=== PATIENT | female | born 1960 | race Caucasian/White ===

== ENCOUNTER 2018-06-10 16:41 | Inpatient (IN) | payer MEDICARE, MEDICAID ==
[~2018-06-10] VITALS: Ht 160 cm; Wt 94.0 kg
[2018-06-10] MEDS ORDERED: diphenhydrAMINE 50 mg/ml inj IV ONE (17:10)
[2018-06-10] MEDS ORDERED: morphine 4 MG/ML inj SYRINge IV ONE (17:10)
[2018-06-10] MEDS ORDERED: normal saline 1000ML IV soln IVB ONE (17:10)
[2018-06-10] MEDS ORDERED: ondansetron/PF 4mg/2ml inj IV ONE ×3 (17:10→20:30)
[2018-06-10 17:16] LABS: BASOPHILS # (AUTO) 0.1 X10'3 (0-0.2); BASOPHILS % (AUTO) 0.9 % (0-1); EOSINOPHILS # (AUTO) 0.2 X10'3 (0-0.9); EOSINOPHILS % (AUTO) 1.6 % (0-6); HEMATOCRIT 39.9 % (35.0-45.0); HEMOGLOBIN 13.4 g/dl (12.0-16.0); LYMPHOCYTES # (AUTO) 3.9 X10'3 (1.1-4.8); LYMPHOCYTES % (AUTO) 28.2 % (21-51); MEAN CORPUSCULAR HEMOGLOBIN 28.8 PG (27.0-31.0); MEAN CORPUSCULAR HGB CONC 33.6 % (33.0-36.5); MEAN CORPUSCULAR VOLUME 85.6 FL (78-98); MEAN PLATELET VOLUME 8.9 FL (7.4-10.4); MONOCYTES # (AUTO) 0.8 X10'3 (0-0.9); MONOCYTES % (AUTO) 6.2 % (2-12); NEUTROPHILS # (AUTO) 8.7 X10'3 (1.8-7.7); NEUTROPHILS % (AUTO) 63.1 % (42-75); PLATELET COUNT 391 X10'3 (140-440); RED BLOOD COUNT 4.66 X10'6 (4.20-5.60); RED CELL DISTRIBUTION WIDTH 15.1 % (11.5-14.5); WHITE BLOOD COUNT 13.7 X10'3 (4.5-11.0)
[2018-06-10 17:21] LABS: CLARITY,URINE SLIGHTLY CLOUDY (Clear); COLOR,URINE YELLOW (Yellow); GLUCOSE, URINE NEGATIVE (Neg); KETONES,URINE NEGATIVE (Neg); LEUKOCYTE ESTERASE ,URINE NEGATIVE (Neg); NITRITES, URINE NEGATIVE (Neg); OCCULT BLOOD,URINE SMALL (Neg); PROTEIN,URINE TRACE mg/dl (Neg); URINE HCG NEGATIVE (NEG); UROBILINOGEN,URINE 0.2 E.U/dL (0.2-1.0)
[2018-06-10 17:25] LABS: UA COLLECTION TYPE CLN CATCH MIDSTREAM
[2018-06-10 17:27] LABS: BACTERIA,URINE 4+ /HPF (Neg); MUCUS STRANDS MODERATE /LPF (Neg); SQUAMOUS EPITHELIAL CELL,UR MANY /LPF (FEW); WBC,URINE 0-4 /HPF (0-4)
[2018-06-10 17:30] LABS: ALANINE AMINOTRANSFERASE 19 U/L (12-78); ALBUMIN 3.8 G/DL (3.4-5.0); ALKALINE PHOSPHATASE 99 IU/L (46-116); ANION GAP 14 (8-16); ASPARTATE AMINO TRANSFERASE 13 U/L (10-37); BILIRUBIN,TOTAL 0.5 MG/DL (0.1-1.0); BLOOD UREA NITROGEN 13 MG/DL (7-18); BUN/CREATININE RATIO 12.9 (6.6-38.0); CALCIUM 9.4 MG/DL (8.5-10.1); CHLORIDE 107 MMOL/L (99-107); CREATININE 1.01 MG/DL (0.40-0.90); GLUCOSE 101 MG/DL (70-104); LIPASE 120 U/L (73-393); POTASSIUM 3.4 MMOL/L (3.5-5.1); SODIUM 143 MMOL/L (135-145); TOTAL CARBON DIOXIDE 21.7 MMOL/L (24-32); TOTAL PROTEIN 7.7 G/DL (6.4-8.2); eGFR 57 ML/MIN
[2018-06-10] MEDS ORDERED: proCHLORperazine 10 MG/2 ml inj IM ONE (18:55)
[2018-06-10] MEDS ORDERED: HYDROmorphone 2mg tablet PO PRN (18:55)
[2018-06-10] MEDS ORDERED: LORazepam 2 mg/ml vial IV ONE (20:30)
[2018-06-10] MEDS ORDERED: [UNRECOGNIZED DRUG - CODE] PO (21:10)
[2018-06-10] MEDS ORDERED: ONDA8TAB13 PO (21:10)
[2018-06-10] MEDS ORDERED: AMLO5TAB16 PO (21:10)
[2018-06-10] MEDS ORDERED: METO5TAB98 PO (21:10)
[2018-06-10] MEDS ORDERED: LORA1TAB PO (21:10)
[2018-06-10] MEDS ORDERED: OMEP-50 PO (21:10)
[2018-06-10] MEDS ORDERED: pantoprazole 40 MG vial IV ONE (22:15)
[2018-06-10] MEDS ORDERED: ringers solution, lactated 1000ml IV soln IV ONE (22:20)
[2018-06-10] MEDS ORDERED: ciprofloxacin lact 400MG/200ML 200 ML IV ONE (22:50)
[2018-06-10] MEDS ORDERED: potassium Cl 10 mEq/100mL bag IV ONE (22:50)
[2018-06-10] MEDS ORDERED: metroNIDAZOLE-Flagyl 500mg/NS 100 ML IV ONE (22:50)
[2018-06-10] MEDS ORDERED: potassium 10mEq/100ml NS w/LIDOcaine (10mg/bag) IV ONE (23:05)
[2018-06-10] MEDS ORDERED: HYDROmorphone 1 mg/ml syringe IV ONE (23:45)
[2018-06-10] MEDS ORDERED: proMETHazine 25mg rectal suppository RC ONE (23:45)
[2018-06-10] MEDS ORDERED: magnesium hydroxide 30ml (MOM) UD suspension PO PRN (23:50)
[2018-06-10] MEDS ORDERED: mag hydrox/Alum hydrox/simeth 30ml oral suspension PO PRN (23:50)
[2018-06-10] MEDS ORDERED: acetaminophen 325mg tablet PO PRN ×2 (23:50)
[2018-06-10] MEDS ORDERED: hydrALAZINE 20mg/ml inj. IV PRN (23:50)
[2018-06-10] MEDS ORDERED: acetaminophen 650mg rectal suppository RC PRN (23:50)
[2018-06-10] MEDS: normal saline 1000ml 1,000 ML IV SCH (23:56)
[2018-06-11] MEDS ORDERED: piperacillin/tazo 3.375gm/50ml 50 ML IV ONE
[2018-06-11] MEDS: metroNIDAZOLE-Flagyl 500mg/NS 100 ML IV SCH ×4 (00:30→23:31)
[2018-06-11] MEDS: normal saline 1000ml 1,000 ML IV SCH ×2 (01:38→15:54)
[2018-06-11] MEDS: metoclopramide 5 mg/ml inj IV PRN ×2 (01:39→15:58)
[2018-06-11 01:45] VITALS: BP 163/86
[2018-06-11] MEDS: HYDROmorphone 1 mg/ml syringe IV PRN ×5 (02:45→21:50)
[2018-06-11 05:00] VITALS: BP 162/86
[2018-06-11 05:45] LABS: BASOPHILS % (AUTO) 0.2 % (0-1); EOSINOPHILS # (AUTO) 0.1 X10'3 (0-0.9); EOSINOPHILS % (AUTO) 0.6 % (0-6); HEMATOCRIT 39.3 % (35.0-45.0); HEMOGLOBIN 13.3 g/dl (12.0-16.0); LYMPHOCYTES # (AUTO) 1.3 X10'3 (1.1-4.8); LYMPHOCYTES % (AUTO) 7.5 % (21-51); MEAN CORPUSCULAR HEMOGLOBIN 28.9 PG (27.0-31.0); MEAN CORPUSCULAR HGB CONC 33.8 % (33.0-36.5); MEAN CORPUSCULAR VOLUME 85.4 FL (78-98); MEAN PLATELET VOLUME 9.1 FL (7.4-10.4); MONOCYTES # (AUTO) 0.4 X10'3 (0-0.9); MONOCYTES % (AUTO) 2.3 % (2-12); NEUTROPHILS # (AUTO) 15.5 X10'3 (1.8-7.7); NEUTROPHILS % (AUTO) 89.4 % (42-75); PLATELET COUNT 367 X10'3 (140-440); RED CELL DISTRIBUTION WIDTH 15.6 % (11.5-14.5); WHITE BLOOD COUNT 17.4 X10'3 (4.5-11.0)
[2018-06-11 06:09] LABS: ALBUMIN 3.8 G/DL (3.4-5.0); ANION GAP 16 (8-16); BLOOD UREA NITROGEN 10 MG/DL (7-18); BUN/CREATININE RATIO 10.9 (6.6-38.0); CALCIUM 8.6 MG/DL (8.5-10.1); CHLORIDE 101 MMOL/L (99-107); CREATININE 0.92 MG/DL (0.40-0.90); GLUCOSE 152 MG/DL (70-104); POTASSIUM 3.2 MMOL/L (3.5-5.1); SODIUM 140 MMOL/L (135-145); TOTAL CARBON DIOXIDE 23.2 MMOL/L (24-32); eGFR 63 ML/MIN
[2018-06-11] MEDS: ondansetron/PF 4mg/2ml inj IV PRN ×3 (07:40→19:02)
[2018-06-11] MEDS ORDERED: potassium Cl 20 mEq SR tablet PO PRN (09:40)
[2018-06-11] MEDS ORDERED: potassium Cl 40MEQ/NS 500ml 500 ML IV PRN ×2 (09:40)
[2018-06-11] MEDS: amLODIPine 5mg tablet PO SCH (09:44)
[2018-06-11] MEDS: pantoprazole 40mg Tablet.DR PO SCH ×2 (09:44→20:41)
[2018-06-11] MEDS: LORazepam 1 MG tablet PO SCH (09:44)
[2018-06-11] MEDS: ciprofloxacin lact 400MG/200ML 200 ML IV SCH ×2 (09:48→20:46)
[2018-06-11 10:00] VITALS: BP 121/96
[2018-06-11] MEDS: potassium Cl 20 mEq SR tablet PO PRN ×2 (15:56→20:41)
[2018-06-11 18:00] VITALS: BP 138/78
[2018-06-11 22:00] VITALS: BP 124/78
[2018-06-12] MEDS: ondansetron/PF 4mg/2ml inj IV PRN ×3 (01:54→19:30)
[2018-06-12] MEDS: potassium Cl 20 mEq SR tablet PO PRN (01:55)
[2018-06-12] MEDS: HYDROmorphone 1 mg/ml syringe IV PRN ×6 (02:00→23:56)
[2018-06-12 05:00] VITALS: BP 121/70
[2018-06-12] MEDS: normal saline 1000ml 1,000 ML IV SCH ×2 (05:51→19:53)
[2018-06-12 06:39] LABS: BASOPHILS # (AUTO) 0.1 X10'3 (0-0.2); BASOPHILS % (AUTO) 0.4 % (0-1); EOSINOPHILS # (AUTO) 0.1 X10'3 (0-0.9); EOSINOPHILS % (AUTO) 0.8 % (0-6); HEMATOCRIT 34.6 % (35.0-45.0); HEMOGLOBIN 11.6 g/dl (12.0-16.0); LYMPHOCYTES # (AUTO) 4.4 X10'3 (1.1-4.8); LYMPHOCYTES % (AUTO) 27.5 % (21-51); MEAN CORPUSCULAR HGB CONC 33.6 % (33.0-36.5); MEAN CORPUSCULAR VOLUME 86.3 FL (78-98); MONOCYTES # (AUTO) 1.6 X10'3 (0-0.9); MONOCYTES % (AUTO) 10.3 % (2-12); NEUTROPHILS # (AUTO) 9.7 X10'3 (1.8-7.7); PLATELET COUNT 313 X10'3 (140-440); RED BLOOD COUNT 4.01 X10'6 (4.20-5.60); RED CELL DISTRIBUTION WIDTH 14.9 % (11.5-14.5); WHITE BLOOD COUNT 15.9 X10'3 (4.5-11.0)
[2018-06-12 06:49] LABS: ALBUMIN 3.2 G/DL (3.4-5.0); ANION GAP 12 (8-16); BLOOD UREA NITROGEN 20 MG/DL (7-18); BUN/CREATININE RATIO 19.2 (6.6-38.0); CALCIUM 8.6 MG/DL (8.5-10.1); CHLORIDE 107 MMOL/L (99-107); CREATININE 1.04 MG/DL (0.40-0.90); GLUCOSE 95 MG/DL (70-104); POTASSIUM 3.5 MMOL/L (3.5-5.1); SODIUM 142 MMOL/L (135-145); TOTAL CARBON DIOXIDE 23.3 MMOL/L (24-32); eGFR 55 ML/MIN
[2018-06-12] MEDS: K and/or MAG REPLACEMENT MC SCH (08:32)
[2018-06-12] MEDS: pantoprazole 40mg Tablet.DR PO SCH ×2 (08:41→19:30)
[2018-06-12] MEDS: ciprofloxacin lact 400MG/200ML 200 ML IV SCH ×2 (08:41→19:31)
[2018-06-12] MEDS: amLODIPine 5mg tablet PO SCH (08:41)
[2018-06-12] MEDS: LORazepam 1 MG tablet PO SCH (08:41)
[2018-06-12] MEDS: metroNIDAZOLE-Flagyl 500mg/NS 100 ML IV SCH ×3 (09:59→23:58)
[2018-06-12 10:00] VITALS: BP 115/58
[2018-06-12] MEDS: metoclopramide 5 mg/ml inj IV PRN ×2 (15:16→23:56)
[2018-06-12 18:00] VITALS: BP 133/81
[2018-06-12 22:00] VITALS: BP 123/76
[2018-06-13] MEDS: normal saline 1000ml 1,000 ML IV SCH ×3 (01:48→20:33)
[2018-06-13] MEDS: ondansetron/PF 4mg/2ml inj IV PRN ×2 (04:18→17:52)
[2018-06-13] MEDS: HYDROmorphone 1 mg/ml syringe IV PRN ×5 (04:19→22:01)
[2018-06-13 05:51] LABS: ANION GAP 9 (8-16); BLOOD UREA NITROGEN 12 MG/DL (7-18); BUN/CREATININE RATIO 12.2 (6.6-38.0); CALCIUM 8.1 MG/DL (8.5-10.1); CHLORIDE 106 MMOL/L (99-107); CREATININE 0.98 MG/DL (0.40-0.90); GLUCOSE 93 MG/DL (70-104); POTASSIUM 3.1 MMOL/L (3.5-5.1); SODIUM 141 MMOL/L (135-145); TOTAL CARBON DIOXIDE 25.9 MMOL/L (24-32); eGFR 59 ML/MIN
[2018-06-13 05:55] LABS: BASOPHILS # (AUTO) 0.1 X10'3 (0-0.2); BASOPHILS % (AUTO) 0.9 % (0-1); EOSINOPHILS # (AUTO) 0.2 X10'3 (0-0.9); HEMATOCRIT 33.4 % (35.0-45.0); HEMOGLOBIN 11.2 g/dl (12.0-16.0); LYMPHOCYTES # (AUTO) 4.6 X10'3 (1.1-4.8); LYMPHOCYTES % (AUTO) 37.2 % (21-51); MEAN CORPUSCULAR HEMOGLOBIN 29.1 PG (27.0-31.0); MEAN CORPUSCULAR HGB CONC 33.5 % (33.0-36.5); MEAN CORPUSCULAR VOLUME 86.7 FL (78-98); MEAN PLATELET VOLUME 9.3 FL (7.4-10.4); MONOCYTES # (AUTO) 1.2 X10'3 (0-0.9); MONOCYTES % (AUTO) 9.3 % (2-12); NEUTROPHILS # (AUTO) 6.3 X10'3 (1.8-7.7); NEUTROPHILS % (AUTO) 50.6 % (42-75); PLATELET COUNT 282 X10'3 (140-440); RED BLOOD COUNT 3.85 X10'6 (4.20-5.60); RED CELL DISTRIBUTION WIDTH 15.1 % (11.5-14.5); WHITE BLOOD COUNT 12.4 X10'3 (4.5-11.0)
[2018-06-13 06:00] VITALS: BP 133/75
[2018-06-13] MEDS: LORazepam 1 MG tablet PO SCH (07:42)
[2018-06-13] MEDS: potassium Cl 20 mEq SR tablet PO PRN ×3 (07:42→17:57)
[2018-06-13] MEDS: pantoprazole 40mg Tablet.DR PO SCH ×2 (07:42→20:26)
[2018-06-13] MEDS: amLODIPine 5mg tablet PO SCH (07:42)
[2018-06-13] MEDS: ciprofloxacin lact 400MG/200ML 200 ML IV SCH ×2 (07:47→20:26)
[2018-06-13] MEDS: K and/or MAG REPLACEMENT MC SCH (08:00)
[2018-06-13 08:05] VITALS: BP 130/76
[2018-06-13 10:00] VITALS: BP 127/88
[2018-06-13] MEDS: metroNIDAZOLE-Flagyl 500mg/NS 100 ML IV SCH ×2 (10:50→16:35)
[2018-06-13 11:40] VITALS: BP 110/67
[2018-06-13] MEDS: metoclopramide 5 mg/ml inj IV PRN ×2 (13:33→22:08)
[2018-06-13] MEDS ORDERED: CIPR-230 PO (15:57)
[2018-06-13] MEDS ORDERED: METR500T PO (15:57)
[2018-06-13 18:00] VITALS: BP 126/73
[2018-06-13 22:00] VITALS: BP 148/88
[2018-06-14] MEDS: metroNIDAZOLE-Flagyl 500mg/NS 100 ML IV SCH ×2 (00:04→08:34)
[2018-06-14] MEDS: HYDROmorphone 1 mg/ml syringe IV PRN ×3 (02:06→10:22)
[2018-06-14] MEDS: ondansetron/PF 4mg/2ml inj IV PRN ×2 (02:06→10:27)
[2018-06-14 05:00] VITALS: BP 141/86
[2018-06-14 05:49] LABS: BASOPHILS # (AUTO) 0.1 X10'3 (0-0.2); BASOPHILS % (AUTO) 0.7 % (0-1); EOSINOPHILS # (AUTO) 0.5 X10'3 (0-0.9); HEMATOCRIT 34.5 % (35.0-45.0); HEMOGLOBIN 11.4 g/dl (12.0-16.0); LYMPHOCYTES % (AUTO) 31.7 % (21-51); MEAN CORPUSCULAR HEMOGLOBIN 28.6 PG (27.0-31.0); MEAN CORPUSCULAR HGB CONC 33.2 % (33.0-36.5); MEAN CORPUSCULAR VOLUME 86.3 FL (78-98); MEAN PLATELET VOLUME 8.9 FL (7.4-10.4); MONOCYTES # (AUTO) 1.3 X10'3 (0-0.9); MONOCYTES % (AUTO) 10.6 % (2-12); NEUTROPHILS # (AUTO) 6.7 X10'3 (1.8-7.7); PLATELET COUNT 291 X10'3 (140-440); RED BLOOD COUNT 3.99 X10'6 (4.20-5.60); RED CELL DISTRIBUTION WIDTH 15.2 % (11.5-14.5); WHITE BLOOD COUNT 12.7 X10'3 (4.5-11.0)
[2018-06-14 05:59] LABS: ANION GAP 7 (8-16); BLOOD UREA NITROGEN 7 MG/DL (7-18); BUN/CREATININE RATIO 7.7 (6.6-38.0); CALCIUM 8.1 MG/DL (8.5-10.1); CHLORIDE 106 MMOL/L (99-107); CREATININE 0.91 MG/DL (0.40-0.90); GLUCOSE 97 MG/DL (70-104); POTASSIUM 3.2 MMOL/L (3.5-5.1); SODIUM 139 MMOL/L (135-145); TOTAL CARBON DIOXIDE 25.7 MMOL/L (24-32); eGFR 64 ML/MIN
[2018-06-14] MEDS: metoclopramide 5 mg/ml inj IV PRN (05:59)
[2018-06-14 07:08] VITALS: BP 126/76
[2018-06-14] MEDS: K and/or MAG REPLACEMENT MC SCH (08:00)
[2018-06-14] MEDS: potassium Cl 20 mEq SR tablet PO PRN (08:25)
[2018-06-14] MEDS: pantoprazole 40mg Tablet.DR PO SCH (08:25)
[2018-06-14] MEDS: amLODIPine 5mg tablet PO SCH (08:26)
[2018-06-14] MEDS: LORazepam 1 MG tablet PO SCH (08:26)
[2018-06-14] MEDS: normal saline 1000ml 1,000 ML IV SCH (08:32)
[2018-06-14 10:00] VITALS: BP 139/79
[2018-06-14] MEDS: ciprofloxacin lact 400MG/200ML 200 ML IV SCH (10:17)
[2018-06-14] MEDS ORDERED: POTA10TA19 PO (11:30)
[2018-06-14 11:33] VITALS: BP 134/75
[2018-06-14] MEDS ORDERED: metroNIDAZOLE 500mg tablet PO SCH (16:00)
[2018-06-14] MEDS ORDERED: ciprofloxacin 250mg tablet PO SCH (22:00)
== END 2018-06-14 15:20 | disposition home or self-care (01) | DRG 872 ==
LOC: ER 16:41 → ED HOLD 23:48 → ORTHO 4S 06-11 01:45
PROVIDERS: ADMIT Internal Medicine; ATTEND Internal Medicine
DX: A41.9 Sepsis, unspecified organism (principal); N17.9 Acute kidney failure, unspecified; A09 Infectious gastroenteritis and colitis, unspecified; K31.84 Gastroparesis; E87.6 Hypokalemia; I10 Essential (primary) hypertension; K21.9 Gastro-esophageal reflux disease without esophagitis; Z90.49 Acquired absence of other specified parts of digestive tract; Z88.2 Allergy status to sulfonamides; Z88.8 Allergy status to other drugs, medicaments and biological substances; Z79.899 Other long term (current) drug therapy
CPT/HCPCS: 36415; 74176; 80048; 80053; 81001; 81025; 83605; 83690; 84145; 85025; 85610; 87070; 96365; 96367; 96372; 96375; 99285; A4353; C9113; J0744; J0780; J1170; J1200; J2060; J2270; J2405; J2543; J2765; J3480; J3490; J7030; J7120

== ENCOUNTER 2018-09-13 17:17 | Emergency (ER) | payer MEDICARE, MEDICAID ==
[~2018-09-13] VITALS: Ht 160 cm; Wt 86.4 kg
[~2018-09-13 17:17] MED LIST: AMLO5TAB16 PO; LORA1TAB PO; METO5TAB98 PO; OMEP-50 PO; ONDA8TAB13 PO; [UNRECOGNIZED DRUG - CODE] PO
[2018-09-13] MEDS ORDERED: ondansetron/PF 4mg/2ml inj IV ONE (18:00)
[2018-09-13] MEDS ORDERED: LORazepam 2 mg/ml vial IV ONE (18:00)
[2018-09-13 18:24] LABS: BASOPHILS % (AUTO) 0.1 % (0-1); EOSINOPHILS % (AUTO) 0 % (0-6); HEMATOCRIT 46.4 % (35.0-45.0); LYMPHOCYTES # (AUTO) 1.4 X10'3 (1.1-4.8); LYMPHOCYTES % (AUTO) 8.1 % (21-51); MEAN CORPUSCULAR HEMOGLOBIN 28.3 PG (27.0-31.0); MEAN CORPUSCULAR HGB CONC 32.3 % (33.0-36.5); MEAN CORPUSCULAR VOLUME 87.7 FL (78-98); MONOCYTES # (AUTO) 0.2 X10'3 (0-0.9); MONOCYTES % (AUTO) 1.4 % (2-12); NEUTROPHILS # (AUTO) 15.1 X10'3 (1.8-7.7); NEUTROPHILS % (AUTO) 90.4 % (42-75); PLATELET COUNT 305 X10'3 (140-440); RED BLOOD COUNT 5.29 X10'6 (4.20-5.60); RED CELL DISTRIBUTION WIDTH 15.7 % (11.5-14.5); WHITE BLOOD COUNT 16.7 X10'3 (4.5-11.0)
[2018-09-13 18:39] LABS: ALANINE AMINOTRANSFERASE 23 U/L (12-78); ALBUMIN 4.1 G/DL (3.4-5.0); ALBUMIN/GLOBULIN RATIO 0.9 (1.1-1.5); ALKALINE PHOSPHATASE 117 IU/L (46-116); ANION GAP 15 (8-16); ASPARTATE AMINO TRANSFERASE 13 U/L (10-37); BILIRUBIN,TOTAL 0.5 MG/DL (0.1-1.0); BLOOD UREA NITROGEN 10 MG/DL (7-18); BUN/CREATININE RATIO 9.2 (6.6-38.0); CALCIUM 9.7 MG/DL (8.5-10.1); CHLORIDE 101 MMOL/L (99-107); CREATININE 1.09 MG/DL (0.40-0.90); GLUCOSE 140 MG/DL (70-104); POTASSIUM 3.2 MMOL/L (3.5-5.1); SODIUM 140 MMOL/L (135-145); TOTAL CARBON DIOXIDE 23.6 MMOL/L (24-32); TOTAL PROTEIN 8.9 G/DL (6.4-8.2); eGFR 52 ML/MIN
[2018-09-13] MEDS ORDERED: normal saline 1000ML IV soln IVB ONE (18:40)
[2018-09-13 18:46] LABS: PROTHROMBIN TIME 10.1 SECONDS (9.0-12.0)
[2018-09-13 19:21] LABS: URINE HCG NEGATIVE (NEG)
[2018-09-13 19:28] LABS: CLARITY,URINE CLEAR (Clear); COLOR,URINE YELLOW (Yellow); GLUCOSE, URINE NEGATIVE (Neg); KETONES,URINE 15 mg/dl (Neg); LEUKOCYTE ESTERASE ,URINE NEGATIVE (Neg); NITRITES, URINE NEGATIVE (Neg); OCCULT BLOOD,URINE SMALL (Neg); PH,URINE 7.5 (4.8-8.0); PROTEIN,URINE 30 mg/dl (Neg); UROBILINOGEN,URINE 0.2 E.U/dL (0.2-1.0)
[2018-09-13 19:29] LABS: UA COLLECTION TYPE CLN CATCH MIDSTREAM
[2018-09-13] MEDS ORDERED: morphine 4 MG/ML inj SYRINge IV ONE ×2 (19:40→21:40)
[2018-09-13] MEDS ORDERED: iohexol 300mg/ml 100ml inj. ONE (19:45)
[2018-09-13 20:00] LABS: BACTERIA,URINE 2+ /HPF (Neg); SQUAMOUS EPITHELIAL CELL,UR MANY /LPF (FEW); WBC,URINE 0-4 /HPF (0-4)
[2018-09-13] MEDS ORDERED: metoclopramide 5 mg/ml inj IV ONE (20:30)
[2018-09-13] MEDS ORDERED: ONDA4TAB6 PO (21:41)
[2018-09-13] MEDS ORDERED: PROC25SU31 RC (21:41)
[2018-09-13] MEDS ORDERED: proCHLORperazine 10 MG/2 ml inj IV ONE (22:25)
[2018-09-13 22:30] VITALS: BP 151/62
== END 2018-09-13 22:57 | disposition home or self-care (01) ==
LOC: ER 17:18
DX: G89.29 Other chronic pain (principal); R10.9 Unspecified abdominal pain; R11.2 Nausea with vomiting, unspecified; Z90.49 Acquired absence of other specified parts of digestive tract; Z88.2 Allergy status to sulfonamides; Z88.8 Allergy status to other drugs, medicaments and biological substances; Z79.899 Other long term (current) drug therapy
CPT/HCPCS: 36415; 74177; 80053; 81001; 81025; 85025; 85610; 96361; 96374; 96375; 96376; 99284; J0780; J2060; J2270; J2405; J2765; J7030; Q9967

== ENCOUNTER 2018-10-16 20:10 | Emergency (ER) | payer MEDICARE, MEDICAID ==
[~2018-10-16] VITALS: Ht 160 cm; Wt 86.4 kg
[~2018-10-16 20:10] MED LIST changes: +ONDA4TAB6 PO
[2018-10-16] MEDS ORDERED: normal saline 1000ML IV soln IVB ONE (20:30)
[2018-10-16] MEDS ORDERED: LORazepam 2 mg/ml vial IV ONE ×2 (20:30→21:20)
[2018-10-16] MEDS ORDERED: diphenhydrAMINE 50 mg/ml inj IV ONE (20:30)
[2018-10-16] MEDS ORDERED: metoclopramide 5 mg/ml inj IV ONE (20:30)
[2018-10-16 21:19] LABS: BASOPHILS # (AUTO) 0.1 X10'3 (0-0.2); BASOPHILS % (AUTO) 1.2 % (0-1); EOSINOPHILS # (AUTO) 0.5 X10'3 (0-0.9); EOSINOPHILS % (AUTO) 4.2 % (0-6); HEMATOCRIT 38.4 % (35.0-45.0); HEMOGLOBIN 12.8 g/dl (12.0-16.0); LYMPHOCYTES # (AUTO) 4.9 X10'3 (1.1-4.8); LYMPHOCYTES % (AUTO) 42.5 % (21-51); MEAN CORPUSCULAR HEMOGLOBIN 29.2 PG (27.0-31.0); MEAN CORPUSCULAR HGB CONC 33.3 % (33.0-36.5); MEAN CORPUSCULAR VOLUME 87.8 FL (78-98); MEAN PLATELET VOLUME 9.2 FL (7.4-10.4); MONOCYTES % (AUTO) 8.6 % (2-12); NEUTROPHILS % (AUTO) 43.5 % (42-75); PLATELET COUNT 288 X10'3 (140-440); RED BLOOD COUNT 4.37 X10'6 (4.20-5.60); RED CELL DISTRIBUTION WIDTH 15.1 % (11.5-14.5); WHITE BLOOD COUNT 11.6 X10'3 (4.5-11.0)
[2018-10-16 21:32] LABS: ALANINE AMINOTRANSFERASE 18 U/L (12-78); ALBUMIN 3.4 G/DL (3.4-5.0); ALBUMIN/GLOBULIN RATIO 0.9 (1.1-1.5); ALKALINE PHOSPHATASE 100 IU/L (46-116); ANION GAP 11 (8-16); ASPARTATE AMINO TRANSFERASE 12 U/L (10-37); BILIRUBIN,TOTAL 0.2 MG/DL (0.1-1.0); BLOOD UREA NITROGEN 11 MG/DL (7-18); BUN/CREATININE RATIO 10.9 (6.6-38.0); CALCIUM 8.3 MG/DL (8.5-10.1); CHLORIDE 105 MMOL/L (99-107); CREATININE 1.01 MG/DL (0.40-0.90); GLUCOSE 133 MG/DL (70-104); LIPASE 114 U/L (73-393); SODIUM 139 MMOL/L (135-145); TOTAL PROTEIN 7.1 G/DL (6.4-8.2); eGFR 56 ML/MIN
[2018-10-16 21:42] LABS: POTASSIUM 2.9 MMOL/L (3.5-5.1)
[2018-10-16] MEDS ORDERED: potassium 10mEq/100ml NS w/LIDOcaine (10mg/bag) IV ONE (22:05)
[2018-10-16] MEDS ORDERED: ketorolac trometh. 30mg/ml inj. IV ONE (22:35)
[2018-10-16 22:37] VITALS: BP 133/65
--- NOTE | 2018-10-16 22:37 | NUR ---
DISCUSSED PLAN OF CARE AGAIN WITH DR MAST; AGAIN DISCUSSED PAIN MANAGEMENT DUE TO PATIENT REQUESTING DILAUDID AGAIN. IN ROOM WITH PATIENT, PATIENT DRIFTING OFF AND EYES ROLLING BACK INTO HEAD
--- NOTE | 2018-10-16 23:08 | NUR ---
Pt requesting to see EDMD r/t dc. Dr Sanon notified. He'll be in to see pt shortly.
[2018-10-16] MEDS ORDERED: morphine 4 MG/ML inj SYRINge IV ONE (23:20)
[2018-10-16] MEDS ORDERED: PROC25SU31 RC (23:36)
--- NOTE | 2018-10-16 23:39 | NUR ---
Discussed pt's request for Compazine suppositories with Dr Sanon; script provided.
== END 2018-10-16 23:46 | disposition home or self-care (01) ==
LOC: ER 20:11
DX: G43.A0 Cyclical vomiting, in migraine, not intractable (principal); E87.6 Hypokalemia; G89.29 Other chronic pain; Z90.49 Acquired absence of other specified parts of digestive tract; Z88.2 Allergy status to sulfonamides; Z88.8 Allergy status to other drugs, medicaments and biological substances; Z79.899 Other long term (current) drug therapy
CPT/HCPCS: 36415; 80053; 83690; 85025; 96361; 96365; 96375; 96376; 99283; J1200; J1885; J2060; J2270; J2765; J3480; J7030

== ENCOUNTER 2018-11-11 12:29 | Emergency (ER) | payer MEDICARE, MEDICAID ==
[~2018-11-11] VITALS: Ht 160 cm; Wt 92.4 kg
[~2018-11-11 12:29] MED LIST changes: +HYDR2TAB28 PO; +PROC25SU31 RC; -[UNRECOGNIZED DRUG - CODE] PO
[2018-11-11] MEDS ORDERED: normal saline 1000ML IV soln IVB ONE (13:20)
[2018-11-11] MEDS ORDERED: proCHLORperazine 10 MG/2 ml inj IV ONE (13:20)
[2018-11-11] MEDS ORDERED: dexamethasone sod phosphate 10mg/ml inj IV STA (13:20)
[2018-11-11 13:50] LABS: BASOPHILS # (AUTO) 0.1 X10'3 (0-0.2); BASOPHILS % (AUTO) 0.4 % (0-1); EOSINOPHILS % (AUTO) 0 % (0-6); HEMOGLOBIN 14.8 g/dl (12.0-16.0); LYMPHOCYTES # (AUTO) 1.4 X10'3 (1.1-4.8); LYMPHOCYTES % (AUTO) 9.2 % (21-51); MEAN CORPUSCULAR HEMOGLOBIN 28.3 PG (27.0-31.0); MEAN CORPUSCULAR HGB CONC 32.9 g/dL (33.0-36.5); MEAN PLATELET VOLUME 9.2 FL (7.4-10.4); MONOCYTES # (AUTO) 0.6 X10'3 (0-0.9); NEUTROPHILS # (AUTO) 13.2 X10'3 (1.8-7.7); NEUTROPHILS % (AUTO) 86.4 % (42-75); PLATELET COUNT 362 X10'3 (140-440); RED BLOOD COUNT 5.23 X10'6 (4.20-5.60); RED CELL DISTRIBUTION WIDTH 14.8 % (11.5-14.5); WHITE BLOOD COUNT 15.2 X10'3 (4.5-11.0)
[2018-11-11 14:02] LABS: ALANINE AMINOTRANSFERASE 29 U/L (12-78); ALBUMIN 3.9 G/DL (3.4-5.0); ALKALINE PHOSPHATASE 101 IU/L (46-116); AMYLASE 72 U/L (25-115); ANION GAP 13 (8-16); ASPARTATE AMINO TRANSFERASE 18 U/L (10-37); BILIRUBIN,TOTAL 0.6 MG/DL (0.1-1.0); BLOOD UREA NITROGEN 17 MG/DL (7-18); BUN/CREATININE RATIO 15.6 (6.6-38.0); CALCIUM 9.1 MG/DL (8.5-10.1); CHLORIDE 101 MMOL/L (99-107); CREATININE 1.09 MG/DL (0.40-0.90); GLUCOSE 153 MG/DL (70-104); LIPASE 100 U/L (73-393); MAGNESIUM 1.6 MG/DL (1.5-2.4); SODIUM 139 MMOL/L (135-145); TOTAL CARBON DIOXIDE 24.8 MMOL/L (24-32); TOTAL PROTEIN 7.7 G/DL (6.4-8.2); eGFR 52 ML/MIN
[2018-11-11 14:12] LABS: POTASSIUM 2.9 MMOL/L (3.5-5.1)
[2018-11-11] MEDS ORDERED: potassium CL 10mEq/100ml bag 100 ML IV SCH (14:15)
[2018-11-11] MEDS: potass W/LIDOcaine 10mEq/100ml 100 ML IV SCH ×2 (14:32→15:42)
[2018-11-11] MEDS: potassium Cl 20 mEq SR tablet PO STA ×2 (14:52→15:42)
[2018-11-11] MEDS ORDERED: POTA-84 PO (14:57)
[2018-11-11 15:02] LABS: TOTAL CELLS COUNTED 100
[2018-11-11 15:03] LABS: PLATELET ESTIMATE NORMAL
--- NOTE | 2018-11-11 15:46 | NUR ---
PT IS REFUSING TO TAKE POTASSIUM PILLS.
--- NOTE | 2018-11-11 15:47 | NUR ---
MIKE PABLO NOTIFIED OF PT REFUSING TO TAKE POTASSIUM PILLS. NO NEW ORDERS AT THIS TIME.
[2018-11-11] MEDS ORDERED: morphine 4 MG/ML inj SYRINge IV ONE (15:55)
[2018-11-11] MEDS ORDERED: morphine 10mg/ml inj. IV ONE (16:00)
[2018-11-11 16:23] VITALS: BP 188/93
== END 2018-11-11 16:43 | disposition home or self-care (01) ==
LOC: ER 12:30
DX: E87.6 Hypokalemia (principal); G43.A0 Cyclical vomiting, in migraine, not intractable; I10 Essential (primary) hypertension; Z90.49 Acquired absence of other specified parts of digestive tract; Z88.2 Allergy status to sulfonamides; Z79.899 Other long term (current) drug therapy
CPT/HCPCS: 36415; 80053; 82150; 83690; 83735; 85025; 93005; 96365; 96375; 99284; J0780; J1100; J2270; J3480; J7030

== ENCOUNTER 2019-07-20 13:56 | Emergency (ER) | payer MEDICARE, MEDICAID ==
[~2019-07-20] VITALS: Ht 160 cm; Wt 90.0 kg
[~2019-07-20 13:56] MED LIST changes: +ONDA8TAB6 PO; +POTA-84 PO; -PROC25SU31 RC; +PROM25SU46 RC
--- NOTE | 2019-07-20 14:37 | NUR ---
ASSISTING RN WITH PT CARE, REPORT TO MATTEO BURNS. PT IS RESTING QUIETLY ON GURNEY, WAITING TO BE EVALUATED BY PROVIDER
[2019-07-20 15:07] LABS: BASOPHILS # (AUTO) 0.1 X10'3 (0-0.2)
[2019-07-20 15:09] LABS: BASOPHILS % (AUTO) 0.6 % (0-1); EOSINOPHILS % (AUTO) 0.2 % (0-6); HEMATOCRIT 41.4 % (35.0-45.0); HEMOGLOBIN 14.1 g/dl (12.0-16.0); LYMPHOCYTES # (AUTO) 1.8 X10'3 (1.1-4.8); LYMPHOCYTES % (AUTO) 9.4 % (21-51); MEAN CORPUSCULAR HEMOGLOBIN 30.2 PG (27.0-31.0); MEAN CORPUSCULAR HGB CONC 33.9 g/dL (33.0-36.5); MEAN CORPUSCULAR VOLUME 88.9 FL (78-98); MEAN PLATELET VOLUME 9.8 FL (7.4-10.4); MONOCYTES # (AUTO) 0.7 X10'3 (0-0.9); MONOCYTES % (AUTO) 3.8 % (2-12); NEUTROPHILS # (AUTO) 16.7 X10'3 (1.8-7.7); PLATELET COUNT 337 X10'3 (140-440); RED BLOOD COUNT 4.66 X10'6 (4.20-5.60); RED CELL DISTRIBUTION WIDTH 14.7 % (11.5-14.5); WHITE BLOOD COUNT 19.4 X10'3 (4.5-11.0)
[2019-07-20 15:19] LABS: ALANINE AMINOTRANSFERASE 19 U/L (12-78); ALBUMIN 3.7 G/DL (3.4-5.0); ALBUMIN/GLOBULIN RATIO 0.9 (1.1-1.5); ALKALINE PHOSPHATASE 98 IU/L (46-116); ANION GAP 10 (8-16); ASPARTATE AMINO TRANSFERASE 18 U/L (10-37); BILIRUBIN,TOTAL 0.4 MG/DL (0.1-1.0); BLOOD UREA NITROGEN 12 MG/DL (7-18); BUN/CREATININE RATIO 11.4 (6.6-38.0); CALCIUM 9.6 MG/DL (8.5-10.1); CHLORIDE 107 MMOL/L (99-107); CREATININE 1.05 MG/DL (0.40-0.90); GLUCOSE 180 MG/DL (70-104); POTASSIUM 3.6 MMOL/L (3.5-5.1); SODIUM 142 MMOL/L (135-145); TOTAL CARBON DIOXIDE 25.4 MMOL/L (24-32); TOTAL PROTEIN 7.6 G/DL (6.4-8.2); eGFR 54 ML/MIN
[2019-07-20] MEDS ORDERED: proCHLORperazine 10 MG/2 ml inj IV ONE (15:20)
[2019-07-20] MEDS ORDERED: LORazepam 2 mg/ml vial IV ONE ×2 (15:20→17:35)
[2019-07-20] MEDS ORDERED: pantoprazole 40 MG vial IV ONE (15:20)
[2019-07-20] MEDS ORDERED: normal saline 1000ML IV soln IVB ONE ×2 (15:20)
[2019-07-20 16:24] LABS: CLARITY,URINE SLIGHTLY CLOUDY (Clear); COLOR,URINE YELLOW (Yellow); GLUCOSE, URINE NEGATIVE (Neg); KETONES,URINE 15 mg/dl (Neg); LEUKOCYTE ESTERASE ,URINE NEGATIVE (Neg); NITRITES, URINE NEGATIVE (Neg); OCCULT BLOOD,URINE NEGATIVE (Neg); PH,URINE 7.5 (4.8-8.0); PROTEIN,URINE NEGATIVE (Neg); UROBILINOGEN,URINE 0.2 E.U/dL (0.2-1.0)
[2019-07-20 16:34] LABS: UA COLLECTION TYPE VOIDED
--- NOTE | 2019-07-20 16:34 | NUR ---
DR HERNANDEZ IN ROOM AND OFFERED GABINO NON NARCOTIS PAIN MEDICATIONS, PATIENT REFUSED. GABINO TAKES DILAUDID AT HOME AND STATES THAT SHE TOOK A 2 MG DILAUDID THIS AM
[2019-07-20 16:40] LABS: SQUAMOUS EPITHELIAL CELL,UR MANY /LPF (FEW)
[2019-07-20 16:42] LABS: BACTERIA,URINE 1+ /HPF (Neg); RBC,URINE 0-2 /HPF (0-2); WBC,URINE 0-4 /HPF (0-4)
[2019-07-20 19:06] VITALS: BP 170/127
== END 2019-07-20 19:05 | disposition home or self-care (01) ==
LOC: ER 13:57
DX: R11.15 Cyclical vomiting syndrome unrelated to migraine (principal); E86.0 Dehydration; R10.13 Epigastric pain; I10 Essential (primary) hypertension; G89.29 Other chronic pain; Z88.2 Allergy status to sulfonamides; Z88.8 Allergy status to other drugs, medicaments and biological substances; Z79.899 Other long term (current) drug therapy; Z90.49 Acquired absence of other specified parts of digestive tract
CPT/HCPCS: 36415; 80053; 81001; 85025; 85610; 96361; 96374; 96375; 96376; 99284; C9113; J0780; J2060; J7030; J7050

== ENCOUNTER 2019-09-24 12:35 | Emergency (ER) | payer MEDICARE, MEDICAID ==
[~2019-09-24] VITALS: Ht 160 cm; Wt 101.0 kg
[2019-09-24] MEDS ORDERED: diphenhydrAMINE 50 mg/ml inj IV ONE (12:45)
[2019-09-24] MEDS ORDERED: normal saline 1000ML IV soln IVB ONE ×2 (12:45)
[2019-09-24] MEDS ORDERED: metoclopramide 5 mg/ml inj IV ONE (12:45)
[2019-09-24] MEDS ORDERED: morphine 4 MG/ML inj SYRINge IV ONE (12:50)
[2019-09-24 14:18] LABS: BASOPHILS # (AUTO) 0.1 X10'3 (0-0.2); BASOPHILS % (AUTO) 0.3 % (0-1); EOSINOPHILS % (AUTO) 0.1 % (0-6); HEMATOCRIT 43.5 % (35.0-45.0); HEMOGLOBIN 14.7 g/dl (12.0-16.0); LYMPHOCYTES # (AUTO) 1.9 X10'3 (1.1-4.8); LYMPHOCYTES % (AUTO) 10.9 % (21-51); MEAN CORPUSCULAR HEMOGLOBIN 29.4 PG (27.0-31.0); MEAN CORPUSCULAR HGB CONC 33.9 g/dL (33.0-36.5); MEAN CORPUSCULAR VOLUME 86.7 FL (78-98); MEAN PLATELET VOLUME 9.5 FL (7.4-10.4); MONOCYTES # (AUTO) 1.1 X10'3 (0-0.9); MONOCYTES % (AUTO) 6.1 % (2-12); NEUTROPHILS # (AUTO) 14.7 X10'3 (1.8-7.7); NEUTROPHILS % (AUTO) 82.6 % (42-75); PLATELET COUNT 350 X10'3 (140-440); RED BLOOD COUNT 5.02 X10'6 (4.20-5.60); RED CELL DISTRIBUTION WIDTH 14.7 % (11.5-14.5); WHITE BLOOD COUNT 17.8 X10'3 (4.5-11.0)
[2019-09-24 14:33] LABS: ALANINE AMINOTRANSFERASE 27 U/L (12-78); ALBUMIN 4.1 G/DL (3.4-5.0); ALBUMIN/GLOBULIN RATIO 1.1 (1.1-1.5); ALKALINE PHOSPHATASE 97 IU/L (46-116); ANION GAP 12 (8-16); ASPARTATE AMINO TRANSFERASE 17 U/L (10-37); BILIRUBIN,TOTAL 0.4 MG/DL (0.1-1.0); BLOOD UREA NITROGEN 10 MG/DL (7-18); BUN/CREATININE RATIO 10.4 (6.6-38.0); CALCIUM 9.4 MG/DL (8.5-10.1); CHLORIDE 107 MMOL/L (99-107); CREATININE 0.96 MG/DL (0.40-0.90); GLUCOSE 172 MG/DL (70-104); LIPASE 91 U/L (73-393); SODIUM 145 MMOL/L (135-145); TOTAL CARBON DIOXIDE 26.5 MMOL/L (24-32); eGFR 60 ML/MIN
[2019-09-24 14:37] VITALS: BP 145/82
[2019-09-24] MEDS ORDERED: POTA20TA19 PO (14:37)
[2019-09-25] MEDS ORDERED: PHE25R PR (15:08)
[2019-09-28] MEDS ORDERED: CEFD300C3 PO (11:18)
[2019-09-28] MEDS ORDERED: PANT40TA4 PO (11:18)
[2019-09-29] MEDS ORDERED: ONDA8TAB6 PO (20:06)
[2019-09-29] MEDS ORDERED: PANT-47 PO (20:06)
[2019-09-29] MEDS ORDERED: POTA10CA44 PO (22:17)
[2019-09-29] MEDS ORDERED: LISI-600 PO (23:41)
[2019-09-29] MEDS ORDERED: SIMV10TA98 PO (23:41)
[2019-09-30] MEDS ORDERED: METO5TAB98 PO (16:49)
[2019-10-01] MEDS ORDERED: NEUPHOSK PO (09:28)
== END 2019-09-24 15:10 | disposition home or self-care (01) ==
LOC: ER 12:35
DX: E87.6 Hypokalemia (principal); R11.2 Nausea with vomiting, unspecified; R10.13 Epigastric pain; I10 Essential (primary) hypertension; G89.29 Other chronic pain; Z90.49 Acquired absence of other specified parts of digestive tract; Z88.2 Allergy status to sulfonamides; Z88.8 Allergy status to other drugs, medicaments and biological substances; Z79.899 Other long term (current) drug therapy
CPT/HCPCS: 36415; 80053; 83690; 85025; 96361; 96374; 96375; 99283; J1200; J2270; J2765; J7030

== ENCOUNTER 2019-11-15 09:41 | Emergency (ER) | payer MEDICARE, MEDICAID ==
[~2019-11-15] VITALS: Ht 160 cm; Wt 104.0 kg
[~2019-11-15 09:41] MED LIST changes: -HYDR2TAB28 PO; -LORA1TAB PO; -METO5TAB98 PO; +NEUPHOSK PO; -OMEP-50 PO; -ONDA4TAB6 PO; -ONDA8TAB6 PO; +PANT-47 PO; +PHE25R PR; -POTA-84 PO; -PROM25SU46 RC; +SIMV10TA98 PO
[2019-11-15] MEDS ORDERED: normal saline 1000ML IV soln IVB ONE (09:50)
[2019-11-15] MEDS ORDERED: diphenhydrAMINE 50 mg/ml inj IV ONE ×2 (09:50→15:20)
[2019-11-15] MEDS ORDERED: LORazepam 2 mg/ml vial IV ONE (09:50)
[2019-11-15] MEDS ORDERED: ondansetron/PF 4mg/2ml inj IV ONE (09:50)
[2019-11-15 10:33] LABS: BASOPHILS # (AUTO) 0.2 X10'3 (0-0.2); BASOPHILS % (AUTO) 0.8 % (0-1); EOSINOPHILS # (AUTO) 0.1 X10'3 (0-0.9); EOSINOPHILS % (AUTO) 0.6 % (0-6); HEMATOCRIT 40.9 % (35.0-45.0); HEMOGLOBIN 13.8 g/dl (12.0-16.0); LYMPHOCYTES # (AUTO) 3.3 X10'3 (1.1-4.8); LYMPHOCYTES % (AUTO) 17.6 % (21-51); MEAN CORPUSCULAR HEMOGLOBIN 29.4 PG (27.0-31.0); MEAN CORPUSCULAR HGB CONC 33.6 g/dL (33.0-36.5); MEAN CORPUSCULAR VOLUME 87.6 FL (78-98); MEAN PLATELET VOLUME 9.1 FL (7.4-10.4); MONOCYTES # (AUTO) 1.2 X10'3 (0-0.9); MONOCYTES % (AUTO) 6.3 % (2-12); NEUTROPHILS # (AUTO) 13.9 X10'3 (1.8-7.7); NEUTROPHILS % (AUTO) 74.7 % (42-75); PLATELET COUNT 329 X10'3 (140-440); RED BLOOD COUNT 4.67 X10'6 (4.20-5.60); WHITE BLOOD COUNT 18.6 X10'3 (4.5-11.0)
[2019-11-15 10:53] LABS: ALANINE AMINOTRANSFERASE 20 U/L (12-78); ALBUMIN 3.9 G/DL (3.4-5.0); ANION GAP 11 (8-16); ASPARTATE AMINO TRANSFERASE 16 U/L (10-37); BILIRUBIN,TOTAL 0.5 MG/DL (0.1-1.0); BLOOD UREA NITROGEN 9 MG/DL (7-18); BUN/CREATININE RATIO 9.7 (6.6-38.0); CALCIUM 9.9 MG/DL (8.5-10.1); CHLORIDE 106 MMOL/L (99-107); CREATININE 0.93 MG/DL (0.40-0.90); GLUCOSE 180 MG/DL (70-104); POTASSIUM 3.1 MMOL/L (3.5-5.1); SODIUM 143 MMOL/L (135-145); TOTAL CARBON DIOXIDE 26.3 MMOL/L (24-32); TOTAL PROTEIN 7.9 G/DL (6.4-8.2); eGFR 62 ML/MIN
[2019-11-15 10:54] LABS: ALKALINE PHOSPHATASE 90 IU/L (46-116)
[2019-11-15] MEDS ORDERED: morphine 4 MG/ML inj SYRINge IV ONE (11:00)
[2019-11-15] MEDS ORDERED: POTA10CA44 PO (11:07)
[2019-11-15 11:20] LABS: CLARITY,URINE CLEAR (Clear); COLOR,URINE YELLOW (Yellow); GLUCOSE, URINE NEGATIVE (Neg); KETONES,URINE 15 mg/dl (Neg); LEUKOCYTE ESTERASE ,URINE NEGATIVE (Neg); NITRITES, URINE NEGATIVE (Neg); OCCULT BLOOD,URINE TRACE-INTACT (Neg); PH,URINE 6.5 (4.8-8.0); PROTEIN,URINE NEGATIVE (Neg); UROBILINOGEN,URINE 0.2 E.U/dL (0.2-1.0)
[2019-11-15 11:25] LABS: UA COLLECTION TYPE CLN CATCH MIDSTREAM
[2019-11-15 11:26] LABS: BACTERIA,URINE NONE SEEN /HPF (Neg); MUCUS STRANDS FEW /LPF (Neg); RBC,URINE 0-2 /HPF (0-2); SQUAMOUS EPITHELIAL CELL,UR FEW /LPF (FEW); WBC,URINE NONE SEEN /HPF (0-4)
--- NOTE | 2019-11-15 12:00 | NUR ---
Pt tried to call her daughter. Pt's daughter did not answer. Pt barely able to stay awake to make phone call and fell right back to sleep when hanging up the phone.
--- NOTE | 2019-11-15 12:28 | NUR ---
Spoke w/ RATNA Boyer regarding pt not being able to stay awake and her daughter not answering. Letting pt sleep and monitoring her until she is awake.
[2019-11-15 13:09] VITALS: BP 153/91
--- NOTE | 2019-11-15 13:12 | NUR ---
Tried to call pt's daughter, Shaylee, but the number the pt gave me has been disconnected. Registration is looking to see if they have another number for her.
--- NOTE | 2019-11-15 13:14 | NUR ---
Tried to call Vincent, patient's who is listed as the emergency contact on her account. Got his voicemail, asked him to give us a call back when he got the message.
--- NOTE | 2019-11-15 14:26 | NUR ---
Let MIKE Roldan know that the patient is refusing to leave unless she talks to her again. Yuli agreed that she will go in and talk to the patient once the patient's is in the room as well.
--- NOTE | 2019-11-15 14:54 | NUR ---
Pt's is in the room. Pt walked to the restroom without any difficulty. Let MIKE Roldan know that the pt's is in the room.
--- NOTE | 2019-11-15 15:01 | NUR ---
MIKE Roldan went in to talk with the pt's , but he had left. Yuli is calling him to come back.
== END 2019-11-15 16:08 | disposition home or self-care (01) ==
LOC: ER 09:42
DX: K31.84 Gastroparesis (principal); E87.6 Hypokalemia; G89.29 Other chronic pain; I10 Essential (primary) hypertension; R11.2 Nausea with vomiting, unspecified; Z90.49 Acquired absence of other specified parts of digestive tract; Z88.2 Allergy status to sulfonamides; Z88.8 Allergy status to other drugs, medicaments and biological substances; Z79.899 Other long term (current) drug therapy
CPT/HCPCS: 36415; 80053; 81001; 85025; 96361; 96374; 96375; 96376; 99284; J1200; J2060; J2270; J2405; J7030; 96365

== ENCOUNTER 2019-11-15 23:17 | Emergency (ER) | payer MEDICARE, MEDICAID ==
[~2019-11-15] VITALS: Ht 160 cm; Wt 90.9 kg
[~2019-11-15 23:17] MED LIST changes: +POTA10CA44 PO
[2019-11-16] MEDS ORDERED: normal saline 1000ML IV soln IVB ONE (00:30)
[2019-11-16] MEDS ORDERED: LORazepam 2 mg/ml vial IV ONE (00:30)
[2019-11-16] MEDS ORDERED: ondansetron/PF 4mg/2ml inj IV ONE (00:30)
[2019-11-16] MEDS ORDERED: morphine 4 MG/ML inj SYRINge IV ONE (00:30)
[2019-11-16] MEDS ORDERED: diphenhydrAMINE 50 mg/ml inj IV ONE (00:30)
[2019-11-16] MEDS ORDERED: famotidine/PF 10 mg/ml inj IV ONE (00:40)
[2019-11-16 02:44] VITALS: BP 103/58
== END 2019-11-16 02:46 | disposition home or self-care (01) ==
LOC: ER 23:18
DX: R11.15 Cyclical vomiting syndrome unrelated to migraine (principal); I10 Essential (primary) hypertension; R10.10 Upper abdominal pain, unspecified; G89.29 Other chronic pain; Z90.49 Acquired absence of other specified parts of digestive tract; Z88.2 Allergy status to sulfonamides; Z88.5 Allergy status to narcotic agent; Z79.899 Other long term (current) drug therapy
CPT/HCPCS: 96361; 96374; 96375; 99284; J1200; J2060; J2270; J2405; J3490; J7030

== ENCOUNTER 2020-03-19 13:29 | Emergency (ER) | payer MEDICARE, MEDICAID ==
[~2020-03-19] VITALS: Ht 160 cm; Wt 90.0 kg
[~2020-03-19 13:29] MED LIST changes: +HYDR2TAB28 PO; +LISI-600 PO; -NEUPHOSK PO; -PANT-47 PO; +PANT40TA4 PO; -PHE25R PR; -POTA10CA44 PO; -SIMV10TA98 PO
[2020-03-19] MEDS ORDERED: HYDROmorphone 1 mg/ml syringe IV ONE (13:45)
[2020-03-19] MEDS ORDERED: normal saline 1000ML IV soln IVB ONE (13:45)
[2020-03-19] MEDS ORDERED: ondansetron/PF 4mg/2ml inj IV ONE (13:45)
[2020-03-19] MEDS ORDERED: LORazepam 2 mg/ml vial IV ONE (13:45)
[2020-03-19] MEDS ORDERED: diphenhydrAMINE 50 mg/ml inj IV ONE (13:45)
[2020-03-19 15:07] VITALS: BP 195/94
[2020-03-19 15:20] LABS: ALANINE AMINOTRANSFERASE 17 U/L (12-78); ALBUMIN/GLOBULIN RATIO 0.8 (1.1-1.5); ALKALINE PHOSPHATASE 90 IU/L (46-116); ANION GAP 14 (8-16); ASPARTATE AMINO TRANSFERASE 17 U/L (10-37); BILIRUBIN,TOTAL 0.5 MG/DL (0.1-1.0); BLOOD UREA NITROGEN 9 MG/DL (7-18); CHLORIDE 105 MMOL/L (99-107); GLUCOSE 156 MG/DL (70-104); LIPASE 97 U/L (73-393); POTASSIUM 3.4 MMOL/L (3.5-5.1); SODIUM 140 MMOL/L (135-145); TOTAL CARBON DIOXIDE 21.4 MMOL/L (24-32); TOTAL PROTEIN 8.9 G/DL (6.4-8.2)
[2020-03-19 15:26] LABS: BUN/CREATININE RATIO 9.5 (6.6-38.0); CALCIUM 9.5 MG/DL (8.5-10.1); CREATININE 1.05 MG/DL (0.40-0.90); eGFR 54 ML/MIN
[2020-03-19] MEDS ORDERED: PROC-8 PO (15:38)
[2020-03-19] MEDS ORDERED: PROC25SU31 RC (15:38)
[2020-03-19] MEDS ORDERED: proCHLORperazine 10 MG/2 ml inj IV ONE (16:05)
== END 2020-03-19 16:52 | disposition home or self-care (01) ==
LOC: ER 13:30
DX: K29.00 Acute gastritis without bleeding (principal); I10 Essential (primary) hypertension; G89.29 Other chronic pain; R11.2 Nausea with vomiting, unspecified; Z90.49 Acquired absence of other specified parts of digestive tract; Z88.2 Allergy status to sulfonamides; Z88.8 Allergy status to other drugs, medicaments and biological substances; Z79.899 Other long term (current) drug therapy
CPT/HCPCS: 36415; 80053; 83690; 96361; 96374; 96375; 99284; J0780; J1170; J1200; J2060; J2405; J7030

== ENCOUNTER 2020-04-02 18:16 | Emergency (ER) | payer MEDICARE, MEDICAID ==
[~2020-04-02] VITALS: Ht 160 cm; Wt 90.9 kg
[~2020-04-02 18:16] MED LIST changes: +PROC-8 PO; +PROC25SU31 RC
[2020-04-02] MEDS ORDERED: proCHLORperazine 10 MG/2 ml inj IV ONE (18:45)
[2020-04-02] MEDS ORDERED: diphenhydrAMINE 50 mg/ml inj IV ONE ×2 (18:45→18:50)
[2020-04-02] MEDS ORDERED: LORazepam 2 mg/ml vial IV ONE ×2 (18:50→19:20)
[2020-04-02] MEDS ORDERED: ondansetron/PF 4mg/2ml inj IV ONE (18:50)
[2020-04-02] MEDS ORDERED: haloperidol lactate 5mg/ml inj IM ONE (18:50)
[2020-04-02 18:54] LABS: BASOPHILS # (AUTO) 0.1 X10'3 (0-0.2); BASOPHILS % (AUTO) 0.6 % (0-1); EOSINOPHILS # (AUTO) 0.4 X10'3 (0-0.9); EOSINOPHILS % (AUTO) 2.3 % (0-6); HEMATOCRIT 42.2 % (35.0-45.0); HEMOGLOBIN 13.8 g/dl (12.0-16.0); LYMPHOCYTES # (AUTO) 3.7 X10'3 (1.1-4.8); LYMPHOCYTES % (AUTO) 18.8 % (21-51); MEAN CORPUSCULAR HEMOGLOBIN 28.6 PG (27.0-31.0); MEAN CORPUSCULAR HGB CONC 32.7 g/dL (33.0-36.5); MEAN CORPUSCULAR VOLUME 87.4 FL (78-98); MEAN PLATELET VOLUME 8.9 FL (7.4-10.4); MONOCYTES # (AUTO) 1.5 X10'3 (0-0.9); MONOCYTES % (AUTO) 7.6 % (2-12); NEUTROPHILS # (AUTO) 13.9 X10'3 (1.8-7.7); NEUTROPHILS % (AUTO) 70.7 % (42-75); PLATELET COUNT 362 X10'3 (140-440); RED BLOOD COUNT 4.83 X10'6 (4.20-5.60); RED CELL DISTRIBUTION WIDTH 15.3 % (11.5-14.5); WHITE BLOOD COUNT 19.6 X10'3 (4.5-11.0)
[2020-04-02 19:08] LABS: ALANINE AMINOTRANSFERASE 16 U/L (12-78); ALBUMIN 3.8 G/DL (3.4-5.0); ALBUMIN/GLOBULIN RATIO 0.8 (1.1-1.5); ALKALINE PHOSPHATASE 82 IU/L (46-116); ANION GAP 15 (8-16); ASPARTATE AMINO TRANSFERASE 16 U/L (10-37); BILIRUBIN,TOTAL 0.6 MG/DL (0.1-1.0); BLOOD UREA NITROGEN 12 MG/DL (7-18); BUN/CREATININE RATIO 9.6 (6.6-38.0); CALCIUM 9.9 MG/DL (8.5-10.1); CHLORIDE 106 MMOL/L (99-107); CREATININE 1.25 MG/DL (0.40-0.90); GLUCOSE 128 MG/DL (70-104); LIPASE 242 U/L (73-393); POTASSIUM 3.4 MMOL/L (3.5-5.1); SODIUM 141 MMOL/L (135-145); TOTAL CARBON DIOXIDE 20.3 MMOL/L (24-32); TOTAL PROTEIN 8.7 G/DL (6.4-8.2); eGFR 44 ML/MIN
--- NOTE | 2020-04-02 19:10 | NUR ---
pt given zofran, compazine, ativan, benedryl. Cannot take haldol d/t allergy.
--- NOTE | 2020-04-02 20:06 | NUR ---
pt lying on the gurney on left side and intermittently snoring. dr. ríos updated or her adverse reaction to haldol and he requests she take it for her symptoms. pt updated and does not want to take it. vss.
[2020-04-02 21:03] LABS: CLARITY,URINE CLEAR (Clear); COLOR,URINE YELLOW (Yellow); GLUCOSE, URINE NEGATIVE (Neg); KETONES,URINE TRACE mg/dl (Neg); LEUKOCYTE ESTERASE ,URINE NEGATIVE (Neg); NITRITES, URINE NEGATIVE (Neg); OCCULT BLOOD,URINE NEGATIVE (Neg); PROTEIN,URINE NEGATIVE (Neg); UROBILINOGEN,URINE 0.2 E.U/dL (0.2-1.0)
[2020-04-02 21:04] LABS: URINE HCG NEGATIVE (NEG)
[2020-04-02 21:06] LABS: UA COLLECTION TYPE CLN CATCH MIDSTREAM
--- NOTE | 2020-04-02 21:15 | NUR ---
pt uncooperative with vital signs-will not stay still for blood pressure.
--- NOTE | 2020-04-02 21:23 | NUR ---
CALLED NEIGHBOR PANDA; [phone]. WILL WOODS BOSS PT IN 1/2 HOUR
[2020-04-02] MEDS ORDERED: ketamine 10mg/ml 20ml inj 0 MG in normal saline 100ml IV soln 100 ML IV ONE (21:35)
[2020-04-02] MEDS ORDERED: ketamine 10mg/ml 20ml inj 30 MG in normal saline 100ml IV soln 97 ML IV ONE (22:10)
--- NOTE | 2020-04-02 22:14 | NUR ---
PT TO RECEIVED A DOSE OF KETAMINE FOR HER 10 OUT OF [address] MAST TALKED WITH PHARMACIST, AINSLEY, FOR CLARIFICATION ON DOSING. AWAITING MED DELIVERY NOW.
--- NOTE | 2020-04-02 22:40 | NUR ---
ketamine started, vss, pt sleepy but a&ox3. states nausea has improved, but the pain is severe to her abd.
[2020-04-02 22:50] VITALS: BP 149/73
[2020-04-03] MEDS ORDERED: ONDA8TAB13 PO (15:18)
[2020-04-03] MEDS ORDERED: HYDR2TAB7 PO (15:18)
[2020-04-07] MEDS ORDERED: LEVO500T2 PO (11:05)
[2020-04-07] MEDS ORDERED: METR500T PO (11:06)
== END 2020-04-03 00:07 | disposition home or self-care (01) ==
LOC: ER 18:17
DX: R11.15 Cyclical vomiting syndrome unrelated to migraine (principal); R10.9 Unspecified abdominal pain; D72.829 Elevated white blood cell count, unspecified; E66.01 Morbid (severe) obesity due to excess calories; I10 Essential (primary) hypertension; G89.29 Other chronic pain; Z90.49 Acquired absence of other specified parts of digestive tract; Z88.2 Allergy status to sulfonamides; Z79.899 Other long term (current) drug therapy
CPT/HCPCS: 36415; 80053; 81003; 81025; 83690; 85025; 96365; 96375; 96376; 99285; J0780; J1200; J2060; J2405

== ENCOUNTER 2020-05-04 08:25 | Emergency (ER) | payer MEDICARE, MEDICAID ==
[~2020-05-04] VITALS: Ht 160 cm; Wt 90.9 kg
[~2020-05-04 08:25] MED LIST changes: -HYDR2TAB28 PO; +HYDR2TAB7 PO; -PROC-8 PO; -PROC25SU31 RC
[2020-05-04] MEDS ORDERED: NORMAL SALINE IV ONE (08:35)
[2020-05-04] MEDS ORDERED: morphine 5 MG/ML injection IV ONE (08:35)
[2020-05-04] MEDS ORDERED: KETAMINE IV ONE (08:35)
--- NOTE | 2020-05-04 08:56 | NUR ---
Call to Pharmacist for morphine and ketamine (see EMAR), pharmacy to prepare.
[2020-05-04] MEDS ORDERED: morphine 10mg/ml inj. IV ONE (09:00)
--- NOTE | 2020-05-04 09:05 | NUR ---
desiree went to pharmacy for pt pain meds.
[2020-05-04] MEDS ORDERED: proCHLORperazine 10 MG/2 ml inj IV ONE (09:10)
[2020-05-04] MEDS ORDERED: diphenhydrAMINE 50 mg/ml inj IV ONE (09:10)
--- NOTE | 2020-05-04 09:26 | NUR ---
pt medicated with morphine 10 mg iv once,ketamine 10mg/1ml 20ml iv infusion,compazine and benedryl iv once for abd pain n/v,pt vomited 150 ml of vomitus,pt resting in bed quietly no distress noted,no new episode of vomiting after medication,urial from lab at bedside trying to draw bld.
[2020-05-04 09:47] LABS: BASOPHILS # (AUTO) 0.1 X10'3 (0-0.2); BASOPHILS % (AUTO) 0.6 % (0-1); EOSINOPHILS # (AUTO) 0.1 X10'3 (0-0.9); EOSINOPHILS % (AUTO) 0.6 % (0-6); HEMATOCRIT 43.2 % (35.0-45.0); HEMOGLOBIN 14.1 g/dl (12.0-16.0); LYMPHOCYTES # (AUTO) 2.1 X10'3 (1.1-4.8); LYMPHOCYTES % (AUTO) 14.6 % (21-51); MEAN CORPUSCULAR HEMOGLOBIN 28.7 PG (27.0-31.0); MEAN CORPUSCULAR HGB CONC 32.6 g/dL (33.0-36.5); MEAN CORPUSCULAR VOLUME 88.1 FL (78-98); MEAN PLATELET VOLUME 9.1 FL (7.4-10.4); MONOCYTES % (AUTO) 6.7 % (2-12); NEUTROPHILS % (AUTO) 77.5 % (42-75); PLATELET COUNT 252 X10'3 (140-440); RED CELL DISTRIBUTION WIDTH 15.8 % (11.5-14.5); WHITE BLOOD COUNT 14.2 X10'3 (4.5-11.0)
[2020-05-04 10:02] LABS: ALANINE AMINOTRANSFERASE 16 U/L (12-78); ALBUMIN 3.8 G/DL (3.4-5.0); ALBUMIN/GLOBULIN RATIO 0.9 (1.1-1.5); ALKALINE PHOSPHATASE 84 IU/L (46-116); ANION GAP 13 (8-16); ASPARTATE AMINO TRANSFERASE 12 U/L (10-37); BILIRUBIN,TOTAL 0.4 MG/DL (0.1-1.0); BLOOD UREA NITROGEN 14 MG/DL (7-18); BUN/CREATININE RATIO 12.5 (6.6-38.0); CALCIUM 9.1 MG/DL (8.5-10.1); CHLORIDE 108 MMOL/L (99-107); CREATININE 1.12 MG/DL (0.40-0.90); GLUCOSE 159 MG/DL (70-104); LIPASE 193 U/L (73-393); POTASSIUM 3.1 MMOL/L (3.5-5.1); SODIUM 143 MMOL/L (135-145); TOTAL CARBON DIOXIDE 22.1 MMOL/L (24-32); eGFR 50 ML/MIN
[2020-05-04 10:24] LABS: COLOR,URINE YELLOW (Yellow); GLUCOSE, URINE 100 mg/dl (Neg); KETONES,URINE TRACE mg/dl (Neg); LEUKOCYTE ESTERASE ,URINE NEGATIVE (Neg); NITRITES, URINE NEGATIVE (Neg); OCCULT BLOOD,URINE SMALL (Neg); PH,URINE 5.5 (4.8-8.0); PROTEIN,URINE NEGATIVE (Neg); UROBILINOGEN,URINE 0.2 E.U/dL (0.2-1.0)
[2020-05-04 10:30] LABS: URINE HCG NEGATIVE (NEG)
[2020-05-04] MEDS ORDERED: POTASSIUM BICARB 20meq eff tab 20 MEQ TABLET.EFF PO ONE (10:30)
[2020-05-04 10:34] LABS: CLARITY,URINE SLIGHTLY CLOUDY (Clear); UA COLLECTION TYPE CLN CATCH MIDSTREAM
[2020-05-04 10:35] LABS: RBC,URINE 0-2 /HPF (0-2); WBC,URINE 0-4 /HPF (0-4)
[2020-05-04 10:36] LABS: BACTERIA,URINE FEW /HPF (Neg); MUCUS STRANDS FEW /LPF (Neg); SQUAMOUS EPITHELIAL CELL,UR MANY /LPF (FEW)
[2020-05-04] MEDS ORDERED: haloperidol lactate 5mg/ml inj IM ONE (10:50)
--- NOTE | 2020-05-04 12:04 | NUR ---
called lauryn bales for ride back home as per md she can come in 20 mins.
--- NOTE | 2020-05-04 12:15 | NUR ---
walked with pt to restroom ,pt refused to have standby assistance,pt is stable no dizzines s noted.notified charge nurse charu as pt is stable for d/c dr ríos also aware.
[2020-05-04 12:43] VITALS: BP 160/78
[2020-05-08] MEDS ORDERED: OMEP-50 PO (17:05)
[2020-05-08] MEDS ORDERED: DOMPERIDONE PO (17:09)
== END 2020-05-04 12:38 | disposition home or self-care (01) ==
LOC: ER 08:25
DX: G89.29 Other chronic pain (principal); R10.9 Unspecified abdominal pain; R11.15 Cyclical vomiting syndrome unrelated to migraine; D72.829 Elevated white blood cell count, unspecified; I10 Essential (primary) hypertension; Z88.2 Allergy status to sulfonamides; Z88.8 Allergy status to other drugs, medicaments and biological substances; Z79.899 Other long term (current) drug therapy
CPT/HCPCS: 36415; 80053; 81001; 81025; 83690; 85025; 96365; 96372; 96375; 99285; J0780; J1200; J1630; J2270; 99284

== ENCOUNTER 2020-05-05 11:51 | Emergency (ER) | payer MEDICARE, MEDICAID ==
[~2020-05-05] VITALS: Ht 160 cm; Wt 95.0 kg
[2020-05-05 12:26] LABS: BASOPHILS # (AUTO) 0.1 X10'3 (0-0.2); BASOPHILS % (AUTO) 0.4 % (0-1); EOSINOPHILS % (AUTO) 0 % (0-6); HEMOGLOBIN 14.8 g/dl (12.0-16.0); LYMPHOCYTES % (AUTO) 11.6 % (21-51); MEAN CORPUSCULAR HEMOGLOBIN 28.5 PG (27.0-31.0); MEAN CORPUSCULAR VOLUME 86.4 FL (78-98); MONOCYTES # (AUTO) 2.3 X10'3 (0-0.9); MONOCYTES % (AUTO) 8.8 % (2-12); NEUTROPHILS # (AUTO) 20.5 X10'3 (1.8-7.7); NEUTROPHILS % (AUTO) 79.2 % (42-75); PLATELET COUNT 378 X10'3 (140-440); RED BLOOD COUNT 5.21 X10'6 (4.20-5.60)
[2020-05-05 12:28] LABS: WHITE BLOOD COUNT 25.9 X10'3 (4.5-11.0)
[2020-05-05] MEDS ORDERED: metoclopramide 5 mg/ml inj IV ONE (12:30)
[2020-05-05] MEDS ORDERED: normal saline 1000ML IV soln IVB ONE ×2 (12:30→14:25)
[2020-05-05] MEDS ORDERED: diphenhydrAMINE 50 mg/ml inj IV ONE ×2 (12:35→14:50)
[2020-05-05] MEDS ORDERED: morphine 4 MG/ML inj SYRINge IV ONE ×2 (12:35→14:50)
[2020-05-05 12:40] LABS: ALANINE AMINOTRANSFERASE 18 U/L (12-78); ALBUMIN 4.2 G/DL (3.4-5.0); ALBUMIN/GLOBULIN RATIO 0.9 (1.1-1.5); ALKALINE PHOSPHATASE 85 IU/L (46-116); ANION GAP 15 (8-16); ASPARTATE AMINO TRANSFERASE 13 U/L (10-37); BILIRUBIN,TOTAL 0.6 MG/DL (0.1-1.0); BLOOD UREA NITROGEN 21 MG/DL (7-18); BUN/CREATININE RATIO 16.4 (6.6-38.0); CALCIUM 9.8 MG/DL (8.5-10.1); CHLORIDE 99 MMOL/L (99-107); CREATININE 1.28 MG/DL (0.40-0.90); GLUCOSE 136 MG/DL (70-104); LIPASE 130 U/L (73-393); SODIUM 138 MMOL/L (135-145); TOTAL CARBON DIOXIDE 24.3 MMOL/L (24-32); TOTAL PROTEIN 8.8 G/DL (6.4-8.2); eGFR 43 ML/MIN
[2020-05-05 12:41] LABS: POTASSIUM 2.9 MMOL/L (3.5-5.1)
[2020-05-05] MEDS ORDERED: potassium Cl 10 mEq/100mL bag IV ONE (12:50)
[2020-05-05 13:00] LABS: MAGNESIUM 1.8 MG/DL (1.5-2.4); PLATELET ESTIMATE NORMAL; TOTAL CELLS COUNTED 100
--- NOTE | 2020-05-05 13:50 | NUR ---
AWARE OF PT. LABS AND VITALS
[2020-05-05] MEDS ORDERED: ondansetron/PF 4mg/2ml inj IV ONE (14:25)
[2020-05-05 14:29] LABS: BASOPHILS # (AUTO) 0.2 X10'3 (0-0.2); BASOPHILS % (AUTO) 1.1 % (0-1); EOSINOPHILS # (AUTO) 0.2 X10'3 (0-0.9); EOSINOPHILS % (AUTO) 0.8 % (0-6); HEMATOCRIT 41.7 % (35.0-45.0); HEMOGLOBIN 13.7 g/dl (12.0-16.0); LYMPHOCYTES # (AUTO) 2.9 X10'3 (1.1-4.8); LYMPHOCYTES % (AUTO) 12.2 % (21-51); MEAN CORPUSCULAR HEMOGLOBIN 28.5 PG (27.0-31.0); MEAN CORPUSCULAR HGB CONC 32.8 g/dL (33.0-36.5); MEAN CORPUSCULAR VOLUME 86.7 FL (78-98); MEAN PLATELET VOLUME 8.9 FL (7.4-10.4); MONOCYTES # (AUTO) 2.1 X10'3 (0-0.9); MONOCYTES % (AUTO) 8.8 % (2-12); NEUTROPHILS # (AUTO) 18.1 X10'3 (1.8-7.7); NEUTROPHILS % (AUTO) 77.1 % (42-75); PLATELET COUNT 326 X10'3 (140-440); RED CELL DISTRIBUTION WIDTH 16.2 % (11.5-14.5); WHITE BLOOD COUNT 23.4 X10'3 (4.5-11.0)
[2020-05-05 15:06] VITALS: BP 149/78
[2020-05-05] MEDS ORDERED: LORazepam 2 mg/ml vial IV ONE (15:25)
[2020-05-08] MEDS ORDERED: OMEP-50 PO (17:05)
[2020-05-08] MEDS ORDERED: DOMPERIDONE PO (17:09)
== END 2020-05-05 15:54 | disposition home or self-care (01) ==
LOC: ER 11:51
DX: R10.84 Generalized abdominal pain (principal); R11.15 Cyclical vomiting syndrome unrelated to migraine; G89.29 Other chronic pain; R11.2 Nausea with vomiting, unspecified; I10 Essential (primary) hypertension; Z90.49 Acquired absence of other specified parts of digestive tract; Z88.2 Allergy status to sulfonamides; Z88.8 Allergy status to other drugs, medicaments and biological substances; Z79.899 Other long term (current) drug therapy
CPT/HCPCS: 36415; 80053; 83690; 83735; 85007; 85025; 96361; 96374; 96375; 96376; 99285; J1200; J2060; J2270; J2405; J2765; J3480; J7030

== ENCOUNTER 2020-06-02 18:12 | Emergency (ER) | payer MEDICARE, MEDICAID ==
[~2020-06-02] VITALS: Ht 160 cm; Wt 90.9 kg
[~2020-06-02 18:12] MED LIST changes: +DOMPERIDONE PO; +OMEP-50 PO; -PANT40TA4 PO
[2020-06-02 19:37] LABS: BASOPHILS # (AUTO) 0.2 X10'3 (0-0.2); BASOPHILS % (AUTO) 0.9 % (0-1); EOSINOPHILS % (AUTO) 0.1 % (0-6); HEMATOCRIT 41.4 % (35.0-45.0); HEMOGLOBIN 13.5 g/dl (12.0-16.0); LYMPHOCYTES # (AUTO) 2.6 X10'3 (1.1-4.8); MEAN CORPUSCULAR HEMOGLOBIN 29.1 PG (27.0-31.0); MEAN CORPUSCULAR HGB CONC 32.8 g/dL (33.0-36.5); MONOCYTES # (AUTO) 1.6 X10'3 (0-0.9); NEUTROPHILS # (AUTO) 19.1 X10'3 (1.8-7.7); PLATELET COUNT 386 X10'3 (140-440); RED BLOOD COUNT 4.65 X10'6 (4.20-5.60); RED CELL DISTRIBUTION WIDTH 16.3 % (11.5-14.5); WHITE BLOOD COUNT 23.5 X10'3 (4.5-11.0)
[2020-06-02 19:50] LABS: ALANINE AMINOTRANSFERASE 11 U/L (12-78); ALBUMIN 4.1 G/DL (3.4-5.0); ALBUMIN/GLOBULIN RATIO 0.9 (1.1-1.5); ALKALINE PHOSPHATASE 88 IU/L (46-116); ANION GAP 12 (8-16); ASPARTATE AMINO TRANSFERASE 16 U/L (10-37); BILIRUBIN,TOTAL 0.5 MG/DL (0.1-1.0); BLOOD UREA NITROGEN 12 MG/DL (7-18); BUN/CREATININE RATIO 10.3 (6.6-38.0); CALCIUM 10.1 MG/DL (8.5-10.1); CHLORIDE 102 MMOL/L (99-107); CREATININE 1.17 MG/DL (0.40-0.90); GLUCOSE 172 MG/DL (70-104); LIPASE 95 U/L (73-393); POTASSIUM 3.8 MMOL/L (3.5-5.1); SODIUM 140 MMOL/L (135-145); TOTAL CARBON DIOXIDE 26.1 MMOL/L (24-32); TOTAL PROTEIN 8.5 G/DL (6.4-8.2); eGFR 48 ML/MIN
[2020-06-02] MEDS ORDERED: HYDROmorphone 1 mg/ml syringe IV ONE (20:10)
[2020-06-02] MEDS ORDERED: metoclopramide 5 mg/ml inj IV ONE (20:10)
[2020-06-02] MEDS ORDERED: normal saline 1000ML IV soln IVB ONE (20:10)
[2020-06-02] MEDS ORDERED: diphenhydrAMINE 50 mg/ml inj IV ONE (21:05)
[2020-06-02] MEDS ORDERED: proCHLORperazine 10 MG/2 ml inj IV ONE (21:05)
[2020-06-02] MEDS ORDERED: PROC25SU31 RC (22:21)
--- NOTE | 2020-06-02 22:37 | NUR ---
relieving RN for break, attempted to dc pt home, pt said "I cannot go home like this...I am still vomiting...I will just be right back", Brenda MCKEON aware
[2020-06-02] MEDS ORDERED: ondansetron/PF 4mg/2ml inj IV ONE (23:05)
[2020-06-02 23:16] LABS: CLARITY,URINE CLEAR (Clear); COLOR,URINE YELLOW (Yellow); GLUCOSE, URINE NEGATIVE (Neg); KETONES,URINE 15 mg/dl (Neg); LEUKOCYTE ESTERASE ,URINE NEGATIVE (Neg); NITRITES, URINE NEGATIVE (Neg); OCCULT BLOOD,URINE TRACE-INTACT (Neg); PROTEIN,URINE 30 mg/dl (Neg); UROBILINOGEN,URINE 0.2 E.U/dL (0.2-1.0)
[2020-06-02 23:21] LABS: UA COLLECTION TYPE CLN CATCH MIDSTREAM
[2020-06-02 23:22] LABS: BACTERIA,URINE 1+ /HPF (Neg); RBC,URINE 0-2 /HPF (0-2); SQUAMOUS EPITHELIAL CELL,UR MODERATE /LPF (FEW); WBC,URINE 0-4 /HPF (0-4)
[2020-06-02] MEDS ORDERED: ondansetron 4mg rapidly disintigrating tab PO ONE (23:30)
[2020-06-02 23:50] VITALS: BP 168/92
== END 2020-06-02 23:42 | disposition home or self-care (01) ==
LOC: ER 18:13
DX: K31.84 Gastroparesis (principal); R10.10 Upper abdominal pain, unspecified; R11.2 Nausea with vomiting, unspecified; R19.7 Diarrhea, unspecified; I10 Essential (primary) hypertension; G89.29 Other chronic pain; Z90.49 Acquired absence of other specified parts of digestive tract; Z88.2 Allergy status to sulfonamides; Z88.8 Allergy status to other drugs, medicaments and biological substances; Z79.899 Other long term (current) drug therapy
CPT/HCPCS: 36415; 80053; 81001; 83690; 85025; 96361; 96374; 96375; 99284; J0780; J1170; J1200; J2765; J7030

== ENCOUNTER 2020-06-03 16:04 | Emergency (ER) | payer MEDICARE, MEDICAID ==
[~2020-06-03] VITALS: Ht 160 cm; Wt 90.9 kg
[~2020-06-03 16:04] MED LIST changes: +PROC25SU31 RC
[2020-06-03] MEDS ORDERED: ondansetron/PF 4mg/2ml inj IV ONE (16:15)
[2020-06-03] MEDS ORDERED: normal saline 1000ML IV soln IVB ONE (16:30)
[2020-06-03] MEDS ORDERED: diphenhydrAMINE 50 mg/ml inj IV ONE (16:30)
[2020-06-03] MEDS ORDERED: LORazepam 2 mg/ml vial IV ONE (16:30)
[2020-06-03] MEDS ORDERED: metoclopramide 5 mg/ml inj IV ONE (16:30)
[2020-06-03] MEDS ORDERED: potassium Cl 10 mEq/100mL bag IV ONE (16:30)
[2020-06-03 18:34] VITALS: BP 169/99
[2020-06-03] MEDS ORDERED: proCHLORperazine 10 MG/2 ml inj IV ONE (18:40)
== END 2020-06-03 20:26 | disposition home or self-care (01) ==
LOC: ER 16:04
DX: R11.15 Cyclical vomiting syndrome unrelated to migraine (principal); R11.2 Nausea with vomiting, unspecified; G89.29 Other chronic pain; R10.9 Unspecified abdominal pain; F11.29 Opioid dependence with unspecified opioid-induced disorder; I10 Essential (primary) hypertension; Z90.49 Acquired absence of other specified parts of digestive tract; Z88.2 Allergy status to sulfonamides; Z88.8 Allergy status to other drugs, medicaments and biological substances; Z79.899 Other long term (current) drug therapy
CPT/HCPCS: 96361; 96374; 96375; 99284; J0780; J1200; J2060; J2405; J2765; J3480; J7030

== ENCOUNTER 2020-06-27 16:20 | Emergency (ER) | payer MEDICARE, MEDICAID ==
[~2020-06-27] VITALS: Ht 160 cm; Wt 80.0 kg
[~2020-06-27 16:20] MED LIST changes: -PROC25SU31 RC
[2020-06-27] MEDS ORDERED: proCHLORperazine 10 MG/2 ml inj IV ONE (16:40)
[2020-06-27] MEDS ORDERED: normal saline 1000ML IV soln IVB ONE (16:40)
[2020-06-27] MEDS ORDERED: diphenhydrAMINE 50 mg/ml inj IV ONE (16:40)
[2020-06-27 17:11] LABS: BASOPHILS # (AUTO) 0.1 X10'3 (0-0.2); BASOPHILS % (AUTO) 0.3 % (0-1); EOSINOPHILS % (AUTO) 0.1 % (0-6); HEMATOCRIT 43.2 % (35.0-45.0); HEMOGLOBIN 14.5 g/dl (12.0-16.0); LYMPHOCYTES # (AUTO) 1.6 X10'3 (1.1-4.8); LYMPHOCYTES % (AUTO) 8.4 % (21-51); MEAN CORPUSCULAR HEMOGLOBIN 29.6 PG (27.0-31.0); MEAN CORPUSCULAR HGB CONC 33.6 g/dL (33.0-36.5); MEAN CORPUSCULAR VOLUME 88.1 FL (78-98); MEAN PLATELET VOLUME 9.2 FL (7.4-10.4); MONOCYTES # (AUTO) 0.5 X10'3 (0-0.9); MONOCYTES % (AUTO) 2.6 % (2-12); NEUTROPHILS # (AUTO) 16.6 X10'3 (1.8-7.7); NEUTROPHILS % (AUTO) 88.6 % (42-75); PLATELET COUNT 421 X10'3 (140-440); WHITE BLOOD COUNT 18.7 X10'3 (4.5-11.0)
[2020-06-27 17:27] LABS: ALANINE AMINOTRANSFERASE 18 U/L (12-78); ALBUMIN 4.1 G/DL (3.4-5.0); ALBUMIN/GLOBULIN RATIO 0.9 (1.1-1.5); ALKALINE PHOSPHATASE 85 IU/L (46-116); ANION GAP 13 (8-16); ASPARTATE AMINO TRANSFERASE 15 U/L (10-37); BILIRUBIN,TOTAL 0.5 MG/DL (0.1-1.0); BLOOD UREA NITROGEN 8 MG/DL (7-18); BUN/CREATININE RATIO 7.3 (6.6-38.0); CALCIUM 9.7 MG/DL (8.5-10.1); CHLORIDE 99 MMOL/L (99-107); GLUCOSE 147 MG/DL (70-104); LIPASE 74 U/L (73-393); POTASSIUM 3.2 MMOL/L (3.5-5.1); SODIUM 138 MMOL/L (135-145); TOTAL PROTEIN 8.6 G/DL (6.4-8.2); eGFR 51 ML/MIN
[2020-06-27] MEDS ORDERED: proCHLORperazine 10 MG/2 ml inj IM ONE (18:35)
[2020-06-27] MEDS ORDERED: morphine 4 MG/ML inj SYRINge IM ONE (18:35)
[2020-06-27 19:20] VITALS: BP 212/120
--- NOTE | 2020-06-27 19:20 | NUR ---
ASSISTING RN WITH PT CARE, Adrian MCKEON GAVE VERBAL ORDER TO GIVE COMPAZINE AND MORPHINE IV, PT DOES HAVE A RIDE HOME WITH A FRIEND, ETA 20-30MINUTES
[2020-06-30] MEDS ORDERED: SIMV10TA98 PO (14:15)
== END 2020-06-27 20:23 | disposition home or self-care (01) ==
LOC: ER 16:21
DX: K31.84 Gastroparesis (principal); R11.2 Nausea with vomiting, unspecified; R10.84 Generalized abdominal pain; G89.29 Other chronic pain; I10 Essential (primary) hypertension; Z90.49 Acquired absence of other specified parts of digestive tract; Z88.2 Allergy status to sulfonamides; Z88.8 Allergy status to other drugs, medicaments and biological substances; Z79.899 Other long term (current) drug therapy
CPT/HCPCS: 36415; 80053; 83690; 85025; 96361; 96372; 96374; 96375; 99284; J0780; J1200; J2270; J7030

== ENCOUNTER 2020-06-29 08:16 | Emergency (ER) | payer MEDICARE, MEDICAID ==
[~2020-06-29] VITALS: Ht 160 cm; Wt 90.9 kg
[2020-06-29] MEDS ORDERED: normal saline 1000ml 1,000 ML IV ONE (08:30)
[2020-06-29] MEDS ORDERED: proCHLORperazine 10 MG/2 ml inj IV ONE (08:30)
[2020-06-29] MEDS ORDERED: diphenhydrAMINE 50 mg/ml inj IV ONE (08:30)
[2020-06-29] MEDS ORDERED: HYDROmorphone 1 mg/ml syringe IV ONE (08:30)
[2020-06-29 09:32] LABS: ANION GAP 15 (8-16); BLOOD UREA NITROGEN 23 MG/DL (7-18); BUN/CREATININE RATIO 16.7 (6.6-38.0); CALCIUM 9.6 MG/DL (8.5-10.1); CHLORIDE 99 MMOL/L (99-107); CREATININE 1.38 MG/DL (0.40-0.90); GLUCOSE 142 MG/DL (70-104); POTASSIUM 3.1 MMOL/L (3.5-5.1); SODIUM 138 MMOL/L (135-145); TOTAL CARBON DIOXIDE 24.1 MMOL/L (24-32); eGFR 39 ML/MIN
[2020-06-29] MEDS ORDERED: potassium Cl 20 mEq SR tablet PO STA (10:28)
--- NOTE | 2020-06-29 10:48 | NUR ---
pt stated taht she wants to wait for potassium meds .instructed that we need to see how she is going to tolerating,pt refused.
[2020-06-29] MEDS ORDERED: HYDROmorphone 2mg tablet PO PRN (11:10)
[2020-06-29] MEDS ORDERED: proCHLORperazine 10 MG/2 ml inj IV PRN (11:10)
[2020-06-29 12:16] VITALS: BP 190/92
[2020-06-30] MEDS ORDERED: SIMV10TA98 PO (14:15)
== END 2020-06-29 12:17 | disposition home or self-care (01) ==
LOC: ER 08:16
DX: R10.84 Generalized abdominal pain (principal); R11.10 Vomiting, unspecified; I10 Essential (primary) hypertension; G89.29 Other chronic pain; Z90.49 Acquired absence of other specified parts of digestive tract; Z88.2 Allergy status to sulfonamides; Z79.899 Other long term (current) drug therapy
CPT/HCPCS: 36415; 76937; 80048; 96361; 96374; 96375; 96376; 99284; J0780; J1170; J1200; J7030

== ENCOUNTER 2020-07-14 08:26 | Day surgery (SDC) | payer MEDICARE, MEDICAID ==
[~2020-07-14] VITALS: Ht 160 cm; Wt 101.9 kg
[~2020-07-14 08:26] MED LIST changes: -DOMPERIDONE PO; +SIMV10TA98 PO
[2020-07-14] MEDS ORDERED: normal saline 1000ml 1,000 ML IV SCH ×2 (09:20→13:50)
[2020-07-14 09:31] VITALS: BP 150/88
[2020-07-14] MEDS ORDERED: heparin sodium, porcine/PF 100unit/ml 5ML syringe ONE (12:17)
[2020-07-14] MEDS ORDERED: LIDOcaine 1%/PF 5ML 10 MG/ML VIAL ONE (12:17)
[2020-07-14] MEDS ORDERED: midazolam 2 mg/2 ml injection ONE (12:18)
[2020-07-14] MEDS ORDERED: fentaNYL/PF 50MCG/1 ML 2ML syringe ONE ×2 (12:18→13:26)
[2020-07-14] MEDS ORDERED: cefazolin/dext.iso 2gm/50ml 50 ML IV ONE (13:00)
[2020-07-14 13:54] VITALS: BP 146/82
[2020-07-14 14:15] VITALS: BP 181/89
[2020-07-14] MEDS ORDERED: acetaminophen 325mg tablet PO ONE (14:25)
[2020-07-14 14:38] VITALS: BP 165/84
== END 2020-07-14 15:00 | disposition home or self-care (01) ==
LOC: SSTAY O 08:26
PROVIDERS: ATTEND Radiology Vascular & Interventional Radiology
DX: K31.84 Gastroparesis (principal); E86.0 Dehydration; F12.90 Cannabis use, unspecified, uncomplicated; Z88.2 Allergy status to sulfonamides; Z88.8 Allergy status to other drugs, medicaments and biological substances; Z90.49 Acquired absence of other specified parts of digestive tract; Z79.899 Other long term (current) drug therapy; Z83.3 Family history of diabetes mellitus
CPT/HCPCS: 36561; 76937; 99152; 99153; C1769; C1788; C1894; J1642; J2250; J3010

== ENCOUNTER 2021-03-21 21:06 | Emergency (ER) | payer MEDICARE, MEDICAID ==
[~2021-03-21] VITALS: Ht 160 cm; Wt 87.0 kg
[~2021-03-21 21:06] MED LIST changes: -LISI-600 PO; +LISI20TA28 PO; -SIMV10TA98 PO
[2021-03-21 21:58] LABS: BASOPHILS % (AUTO) 0.2 % (0-1); EOSINOPHILS # (AUTO) 0.4 X10'3 (0-0.9); EOSINOPHILS % (AUTO) 2.5 % (0-6); HEMATOCRIT 38.7 % (35.0-45.0); HEMOGLOBIN 12.8 g/dl (12.0-16.0); LYMPHOCYTES % (AUTO) 34.5 % (21-51); MEAN CORPUSCULAR HEMOGLOBIN 29.1 PG (27.0-31.0); MEAN CORPUSCULAR VOLUME 88.2 FL (78-98); MONOCYTES # (AUTO) 1.5 X10'3 (0-0.9); MONOCYTES % (AUTO) 10.3 % (2-12); NEUTROPHILS # (AUTO) 7.6 X10'3 (1.8-7.7); NEUTROPHILS % (AUTO) 52.5 % (42-75); PLATELET COUNT 311 X10'3 (140-440); RED BLOOD COUNT 4.39 X10'6 (4.20-5.60); WHITE BLOOD COUNT 14.5 X10'3 (4.5-11.0)
[2021-03-21 22:05] LABS: ALANINE AMINOTRANSFERASE 21 U/L (12-78); ALBUMIN 3.3 G/DL (3.4-5.0); ALBUMIN/GLOBULIN RATIO 0.8 (1.1-1.5); ALKALINE PHOSPHATASE 85 IU/L (46-116); ANION GAP 10 (8-16); ASPARTATE AMINO TRANSFERASE 15 U/L (10-37); BILIRUBIN,TOTAL 0.5 MG/DL (0.1-1.0); BLOOD UREA NITROGEN 19 MG/DL (7-18); BUN/CREATININE RATIO 16.5 (6.6-38.0); CALCIUM 8.7 MG/DL (8.5-10.1); CHLORIDE 106 MMOL/L (99-107); CREATININE 1.15 MG/DL (0.40-0.90); GLUCOSE 113 MG/DL (70-104); LIPASE 97 U/L (73-393); POTASSIUM 3.4 MMOL/L (3.5-5.1); SODIUM 141 MMOL/L (135-145); TOTAL CARBON DIOXIDE 25.3 MMOL/L (24-32); TOTAL PROTEIN 7.2 G/DL (6.4-8.2); eGFR 48 ML/MIN
[2021-03-21 22:24] LABS: URINE HCG NEGATIVE (NEG)
[2021-03-21 22:28] LABS: CLARITY,URINE SLIGHTLY CLOUDY (Clear); COLOR,URINE AMBER (Yellow); GLUCOSE, URINE NEGATIVE (Neg); KETONES,URINE NEGATIVE (Neg); LEUKOCYTE ESTERASE ,URINE NEGATIVE (Neg); NITRITES, URINE NEGATIVE (Neg); OCCULT BLOOD,URINE TRACE-INTACT (Neg); PH,URINE 5.5 (4.8-8.0); PROTEIN,URINE TRACE mg/dl (Neg); UROBILINOGEN,URINE 0.2 E.U/dL (0.2-1.0)
[2021-03-21 22:33] LABS: UA COLLECTION TYPE CLN CATCH MIDSTREAM
[2021-03-21] MEDS ORDERED: ondansetron/PF 4mg/2ml inj IV ONE (22:35)
[2021-03-21] MEDS ORDERED: mag hydrox/Alum hydrox/simeth 30ml oral suspension PO ONE (22:35)
[2021-03-21] MEDS ORDERED: pantoprazole 40 MG vial IV ONE (22:35)
[2021-03-21] MEDS ORDERED: normal saline 1000ML IV soln IVB ONE ×3 (22:35→23:35)
[2021-03-21] MEDS ORDERED: LIDOcaine Viscous 15ml cup MM ONE (22:35)
[2021-03-21 22:36] LABS: BACTERIA,URINE 4+ /HPF (Neg); MUCUS STRANDS MANY /LPF (Neg); RBC,URINE 0-2 /HPF (0-2); SQUAMOUS EPITHELIAL CELL,UR MANY /LPF (FEW); WBC,URINE 0-4 /HPF (0-4)
[2021-03-21] MEDS ORDERED: metoclopramide 5 mg/ml inj IV ONE (23:35)
[2021-03-21] MEDS ORDERED: LORazepam 2 mg/ml vial IV ONE (23:35)
[2021-03-21] MEDS ORDERED: diphenhydrAMINE 50 mg/ml inj IV ONE (23:35)
[2021-03-22] MEDS ORDERED: morphine 4 MG/ML inj SYRINge IV ONE (02:10)
[2021-03-22 02:32] VITALS: BP 143/81
== END 2021-03-22 03:26 | disposition home or self-care (01) ==
LOC: ER 21:06
DX: K31.84 Gastroparesis (principal); R10.13 Epigastric pain; R11.10 Vomiting, unspecified; I10 Essential (primary) hypertension; G89.29 Other chronic pain; F12.90 Cannabis use, unspecified, uncomplicated; Z90.49 Acquired absence of other specified parts of digestive tract; Z88.2 Allergy status to sulfonamides; Z88.8 Allergy status to other drugs, medicaments and biological substances; Z79.899 Other long term (current) drug therapy
CPT/HCPCS: 36415; 80053; 81001; 81025; 83690; 85025; 96361; 96374; 96375; 99284; C9113; J1200; J2060; J2270; J2405; J2765; J7030

== ENCOUNTER 2021-04-13 13:51 | Emergency (ER) | payer MEDICARE, MEDICAID ==
[~2021-04-13] VITALS: Ht 160 cm; Wt 90.9 kg
[2021-04-13] MEDS ORDERED: normal saline 1000ML IV soln IVB ONE (14:00)
[2021-04-13] MEDS ORDERED: metoclopramide 5 mg/ml inj IV ONE (14:10)
[2021-04-13] MEDS ORDERED: normal saline 1000ML IV soln IV ONE (14:10)
[2021-04-13] MEDS ORDERED: HYDROmorphone 1 mg/ml syringe IV ONE (14:40)
[2021-04-13 14:43] LABS: BASOPHILS # (AUTO) 0.1 X10'3 (0-0.2); BASOPHILS % (AUTO) 0.8 % (0-1); EOSINOPHILS % (AUTO) 0.2 % (0-6); HEMOGLOBIN 15.4 g/dl (12.0-16.0); LYMPHOCYTES # (AUTO) 2.6 X10'3 (1.1-4.8); LYMPHOCYTES % (AUTO) 15.8 % (21-51); MEAN CORPUSCULAR HEMOGLOBIN 29.4 PG (27.0-31.0); MEAN CORPUSCULAR HGB CONC 33.5 g/dL (33.0-36.5); MEAN CORPUSCULAR VOLUME 87.7 FL (78-98); MEAN PLATELET VOLUME 8.9 FL (7.4-10.4); MONOCYTES # (AUTO) 1.1 X10'3 (0-0.9); MONOCYTES % (AUTO) 6.8 % (2-12); NEUTROPHILS # (AUTO) 12.7 X10'3 (1.8-7.7); NEUTROPHILS % (AUTO) 76.4 % (42-75); PLATELET COUNT 379 X10'3 (140-440); RED BLOOD COUNT 5.25 X10'6 (4.20-5.60); RED CELL DISTRIBUTION WIDTH 14.6 % (11.5-14.5); WHITE BLOOD COUNT 16.6 X10'3 (4.5-11.0)
[2021-04-13 14:53] LABS: ALANINE AMINOTRANSFERASE 24 U/L (12-78); ALBUMIN 3.8 G/DL (3.4-5.0); ALBUMIN/GLOBULIN RATIO 0.9 (1.1-1.5); ALKALINE PHOSPHATASE 92 IU/L (46-116); ANION GAP 16 (8-16); ASPARTATE AMINO TRANSFERASE 18 U/L (10-37); BILIRUBIN,TOTAL 0.5 MG/DL (0.1-1.0); BLOOD UREA NITROGEN 22 MG/DL (7-18); CALCIUM 9.1 MG/DL (8.5-10.1); CHLORIDE 101 MMOL/L (99-107); CREATINE KINASE 49 U/L (26-192); CREATININE 1.69 MG/DL (0.40-0.90); GLUCOSE 135 MG/DL (70-104); LIPASE 120 U/L (73-393); SODIUM 141 MMOL/L (135-145); TOTAL CARBON DIOXIDE 24.4 MMOL/L (24-32); TOTAL PROTEIN 8.1 G/DL (6.4-8.2); eGFR 31 ML/MIN
[2021-04-13 15:00] LABS: POTASSIUM 2.7 MMOL/L (3.5-5.1)
[2021-04-13] MEDS ORDERED: potassium Cl 20 mEq SR tablet PO STA (15:04)
[2021-04-13] MEDS ORDERED: potassium Cl 10 mEq/100mL bag IV ONE ×2 (15:05→15:20)
[2021-04-13] MEDS ORDERED: diphenhydrAMINE 50 mg/ml inj IV ONE ×2 (15:10→17:10)
[2021-04-13] MEDS ORDERED: magnesium 2GM in 50ml NS 50 ML IV ONE (15:20)
[2021-04-13] MEDS ORDERED: ondansetron/PF 4mg/2ml inj IV ONE (19:05)
[2021-04-13 19:07] VITALS: BP 130/72
[2021-04-13] MEDS ORDERED: POTASSIUM BICARB 20meq eff tab 20 MEQ TABLET.EFF PO ONE (20:10)
[2021-04-13] MEDS ORDERED: haloperidol lactate 5mg/ml inj IM ONE (20:10)
--- NOTE | 2021-04-13 21:55 | NUR ---
ATEMPTED TO CALL PT FOR TRANSPORTATION RECORDING STATED THAST THE PHONE BRYAN NO LONGER ACCEPT CAL[facility]S AT THIS TIME
== END 2021-04-13 22:41 | disposition home or self-care (01) ==
LOC: ER 13:52
DX: K31.84 Gastroparesis (principal); R11.2 Nausea with vomiting, unspecified; E87.6 Hypokalemia; R10.84 Generalized abdominal pain; R53.1 Weakness; I10 Essential (primary) hypertension; G89.29 Other chronic pain; F12.90 Cannabis use, unspecified, uncomplicated; Z90.49 Acquired absence of other specified parts of digestive tract; Z88.2 Allergy status to sulfonamides; Z88.8 Allergy status to other drugs, medicaments and biological substances; Z79.899 Other long term (current) drug therapy
CPT/HCPCS: 36415; 80053; 82550; 83690; 85025; 93005; 96365; 96366; 96368; 96372; 96375; 96376; 99284; J1170; J1200; J1630; J2405; J2765; J3475; J3480; J7030

== ENCOUNTER 2021-06-03 12:49 | Inpatient (IN) | payer MEDICARE, MEDICAID ==
[~2021-06-03] VITALS: Ht 160 cm; Wt 90.9 kg
[2021-06-03 13:40] LABS: BASOPHILS # (AUTO) 0.2 X10'3 (0-0.2); BASOPHILS % (AUTO) 1.2 % (0-1); EOSINOPHILS # (AUTO) 0.5 X10'3 (0-0.9); EOSINOPHILS % (AUTO) 3.4 % (0-6); HEMATOCRIT 37.4 % (35.0-45.0); HEMOGLOBIN 12.1 g/dl (12.0-16.0); LYMPHOCYTES # (AUTO) 4.7 X10'3 (1.1-4.8); LYMPHOCYTES % (AUTO) 33.6 % (21-51); MEAN CORPUSCULAR HEMOGLOBIN 29.2 PG (27.0-31.0); MEAN CORPUSCULAR HGB CONC 32.4 g/dL (33.0-36.5); MEAN CORPUSCULAR VOLUME 90.1 FL (78-98); MEAN PLATELET VOLUME 8.5 FL (7.4-10.4); MONOCYTES # (AUTO) 1.3 X10'3 (0-0.9); MONOCYTES % (AUTO) 9.5 % (2-12); NEUTROPHILS # (AUTO) 7.3 X10'3 (1.8-7.7); NEUTROPHILS % (AUTO) 52.3 % (42-75); PLATELET COUNT 323 X10'3 (140-440); RED BLOOD COUNT 4.15 X10'6 (4.20-5.60)
[2021-06-03 13:53] LABS: ALANINE AMINOTRANSFERASE 22 U/L (12-78); ALBUMIN 3.7 G/DL (3.4-5.0); ALBUMIN/GLOBULIN RATIO 0.9 (1.1-1.5); ALKALINE PHOSPHATASE 87 IU/L (46-116); ANION GAP 11 (8-16); ASPARTATE AMINO TRANSFERASE 15 U/L (10-37); BILIRUBIN,TOTAL 0.3 MG/DL (0.1-1.0); BLOOD UREA NITROGEN 26 MG/DL (7-18); BUN/CREATININE RATIO 14.9 (6.6-38.0); CALCIUM 9.4 MG/DL (8.5-10.1); CHLORIDE 106 MMOL/L (99-107); CREATININE 1.74 MG/DL (0.40-0.90); GLUCOSE 117 MG/DL (70-104); POTASSIUM 4.5 MMOL/L (3.5-5.1); SODIUM 143 MMOL/L (135-145); TOTAL CARBON DIOXIDE 26.2 MMOL/L (24-32); TOTAL PROTEIN 7.6 G/DL (6.4-8.2); eGFR 30 ML/MIN
[2021-06-03] MEDS ORDERED: vancomycin/NS 1 GM ADD-VANTAGE 250 ML IV ONE (19:40)
[2021-06-03] MEDS ORDERED: CefTRIAXone 2gm/D5W 50ml BAG 50 ML IV ONE (19:40)
[2021-06-03] MEDS ORDERED: mag hydrox/Alum hydrox/simeth 30ml oral suspension PO PRN (20:30)
[2021-06-03] MEDS ORDERED: magnesium hydroxide 30ml (MOM) UD suspension PO PRN (20:30)
[2021-06-03] MEDS ORDERED: potassium Cl 40MEQ/1/2NS 520ml 520 ML IV PRN ×2 (20:30)
[2021-06-03] MEDS ORDERED: acetaminophen 325mg tablet PO PRN (20:30)
[2021-06-03] MEDS ORDERED: pantoprazole 40 MG vial IV ONE (20:35)
[2021-06-03] MEDS: normal saline 1000ml 1,000 ML IV SCH (21:30)
[2021-06-03] MEDS: HYDROmorphone inj. 0.5 MG/0.5 ML DISP.SYRIN IV PRN (21:31)
[2021-06-04] MEDS: HYDROmorphone inj. 0.5 MG/0.5 ML DISP.SYRIN IV PRN ×5 (01:26→20:43)
[2021-06-04 02:12] LABS: BASOPHILS # (AUTO) 0.1 X10'3 (0-0.2); BASOPHILS % (AUTO) 1.1 % (0-1); EOSINOPHILS # (AUTO) 0.4 X10'3 (0-0.9); EOSINOPHILS % (AUTO) 3.1 % (0-6); HEMATOCRIT 32.8 % (35.0-45.0); HEMOGLOBIN 11.3 g/dl (12.0-16.0); LYMPHOCYTES # (AUTO) 3.4 X10'3 (1.1-4.8); LYMPHOCYTES % (AUTO) 29.3 % (21-51); MEAN CORPUSCULAR HEMOGLOBIN 30.7 PG (27.0-31.0); MEAN CORPUSCULAR HGB CONC 34.4 g/dL (33.0-36.5); MEAN CORPUSCULAR VOLUME 89.3 FL (78-98); MEAN PLATELET VOLUME 8.3 FL (7.4-10.4); MONOCYTES # (AUTO) 1.2 X10'3 (0-0.9); MONOCYTES % (AUTO) 10.5 % (2-12); NEUTROPHILS # (AUTO) 6.6 X10'3 (1.8-7.7); PLATELET COUNT 281 X10'3 (140-440); RED BLOOD COUNT 3.68 X10'6 (4.20-5.60); RED CELL DISTRIBUTION WIDTH 15.1 % (11.5-14.5); WHITE BLOOD COUNT 11.7 X10'3 (4.5-11.0)
[2021-06-04 02:28] LABS: ALANINE AMINOTRANSFERASE 20 U/L (12-78); ALBUMIN/GLOBULIN RATIO 0.8 (1.1-1.5); ALKALINE PHOSPHATASE 77 IU/L (46-116); ANION GAP 8 (8-16); ASPARTATE AMINO TRANSFERASE 16 U/L (10-37); BILIRUBIN,TOTAL 0.5 MG/DL (0.1-1.0); BLOOD UREA NITROGEN 21 MG/DL (7-18); BUN/CREATININE RATIO 16.5 (6.6-38.0); CALCIUM 8.7 MG/DL (8.5-10.1); CHLORIDE 105 MMOL/L (99-107); CREATININE 1.27 MG/DL (0.40-0.90); GLUCOSE 103 MG/DL (70-104); SODIUM 141 MMOL/L (135-145); TOTAL CARBON DIOXIDE 27.9 MMOL/L (24-32); TOTAL PROTEIN 6.7 G/DL (6.4-8.2); eGFR 43 ML/MIN
[2021-06-04] MEDS: ondansetron/PF 4mg/2ml inj IV PRN ×3 (05:38→23:00)
[2021-06-04] MEDS: diphenhydrAMINE 50 mg/ml inj IV PRN ×3 (05:40→23:08)
[2021-06-04] MEDS: K and/or MAG REPLACEMENT MC SCH ×2 (08:00→20:00)
--- NOTE | 2021-06-04 08:08 | NUR ---
Spoke with Deedee BURNS for the patient, asked if the providers do in fact want the Port-A-Cath removed if they could place an order. We will wait until further orders provided.
[2021-06-04] MEDS: pantoprazole 40 MG vial IV SCH (09:14)
[2021-06-04] MEDS: docusate sod 100mg capsule PO SCH ×2 (09:14→20:00)
[2021-06-04] MEDS: normal saline 1000ml 1,000 ML IV SCH ×2 (09:14→15:25)
[2021-06-04] MEDS: amLODIPine 5mg tablet PO SCH (09:15)
[2021-06-04] MEDS: CefTRIAXone/D5W-Rocephin 1gm 50 ML IV SCH (09:15)
[2021-06-04] MEDS: heparin, porcine 5000 units/ml vial SQ SCH ×2 (09:15→20:34)
[2021-06-04] MEDS: vancomycin/NS 1 GM ADD-VANTAGE 250 ML IV SCH ×2 (10:55→23:00)
[2021-06-04] MEDS ORDERED: LIDOcaine 1%/PF 5ML 10 MG/ML VIAL ONE (11:48)
[2021-06-04] MEDS ORDERED: ondansetron/PF 4mg/2ml inj ONE (12:07)
[2021-06-04 12:20] VITALS: BP 183/83
[2021-06-04 12:30] VITALS: BP 172/106
--- NOTE | 2021-06-04 12:39 | NUR ---
assumed care of pt from Deedee BURNS, pt just got back from IR
--- NOTE | 2021-06-04 13:30 | NUR ---
pt is sleeping, resp even and unlabored
--- NOTE | 2021-06-04 15:39 | NUR ---
pt continues to sleep, resp even and unlabored
--- NOTE | 2021-06-04 16:05 | NUR ---
attempted report, nurse will call back when available
--- NOTE | 2021-06-04 16:30 | NUR ---
Received report from ED RNMirella.
--- NOTE | 2021-06-04 16:38 | NUR ---
REPORT GIVEN TO THOMAS RN
[2021-06-04 17:25] VITALS: BP 196/112
[2021-06-04] MEDS ORDERED: proCHLORperazine 5mg tablet PO PRN (17:45)
[2021-06-04] MEDS ORDERED: hyDRALAzine 10mg tablet PO PRN (17:45)
[2021-06-04 18:00] VITALS: BP 156/78
[2021-06-04] MEDS: proCHLORperazine 10 MG/2 ml inj IV PRN (18:10)
[2021-06-04] MEDS: LORazepam 2 mg/ml vial IV PRN (18:11)
[2021-06-04] MEDS ORDERED: hydrALAZINE 20mg/ml inj. IV PRN (18:20)
--- NOTE | 2021-06-04 18:42 | NUR ---
Patient in room [facility]. I have received report from THOMAS BURNS and had the opportunity to ask questions and assume patient care.
--- NOTE | 2021-06-04 18:45 | NUR ---
Problems reprioritized. Patient report given, questions answered & plan of care reviewed with GRANT Acevedo.
[2021-06-04] MEDS ORDERED: VANCOMYCIN 750MG IV in NS 250 ML IV SCH (21:00)
[2021-06-05] VITALS: BP 112/61
[2021-06-05] MEDS: normal saline 1000ml 1,000 ML IV SCH ×4 (00:03→22:03)
[2021-06-05] MEDS: LORazepam 2 mg/ml vial IV PRN ×4 (00:24→20:23)
[2021-06-05] MEDS: HYDROmorphone inj. 0.5 MG/0.5 ML DISP.SYRIN IV PRN ×6 (00:43→22:13)
[2021-06-05] MEDS: proCHLORperazine 10 MG/2 ml inj IV PRN ×4 (04:03→22:13)
[2021-06-05] MEDS: ondansetron/PF 4mg/2ml inj IV PRN ×3 (05:44→18:07)
--- NOTE | 2021-06-05 06:10 | NUR ---
Patient in room [facility]. I have received report from GRANT Acevedo and had the opportunity to ask questions and assume patient care.
[2021-06-05 06:30] VITALS: BP 161/80
--- NOTE | 2021-06-05 06:43 | NUR ---
Problems reprioritized. Patient report given, questions answered & plan of care reviewed with THOMAS RN.
[2021-06-05] MEDS: docusate sod 100mg capsule PO SCH ×2 (08:00→19:18)
[2021-06-05 08:28] LABS: BASOPHILS # (AUTO) 0.1 X10'3 (0-0.2); BASOPHILS % (AUTO) 0.3 % (0-1); EOSINOPHILS % (AUTO) 0.1 % (0-6); LYMPHOCYTES # (AUTO) 3.3 X10'3 (1.1-4.8); LYMPHOCYTES % (AUTO) 19.2 % (21-51); MEAN CORPUSCULAR HEMOGLOBIN 29.7 PG (27.0-31.0); MEAN CORPUSCULAR HGB CONC 33.3 g/dL (33.0-36.5); MEAN CORPUSCULAR VOLUME 89.3 FL (78-98); MEAN PLATELET VOLUME 8.4 FL (7.4-10.4); MONOCYTES # (AUTO) 2.2 X10'3 (0-0.9); NEUTROPHILS # (AUTO) 11.5 X10'3 (1.8-7.7); NEUTROPHILS % (AUTO) 67.4 % (42-75); PLATELET COUNT 311 X10'3 (140-440); RED BLOOD COUNT 4.03 X10'6 (4.20-5.60); RED CELL DISTRIBUTION WIDTH 14.8 % (11.5-14.5)
[2021-06-05] MEDS: diphenhydrAMINE 50 mg/ml inj IV PRN ×2 (08:39→20:25)
[2021-06-05] MEDS: CefTRIAXone/D5W-Rocephin 1gm 50 ML IV SCH (08:39)
[2021-06-05] MEDS: amLODIPine 5mg tablet PO SCH (08:39)
[2021-06-05] MEDS: pantoprazole 40 MG vial IV SCH (08:39)
[2021-06-05] MEDS: heparin, porcine 5000 units/ml vial SQ SCH ×2 (08:46→20:23)
[2021-06-05 08:49] LABS: ALANINE AMINOTRANSFERASE 20 U/L (12-78); ALBUMIN 3.3 G/DL (3.4-5.0); ALBUMIN/GLOBULIN RATIO 0.9 (1.1-1.5); ALKALINE PHOSPHATASE 76 IU/L (46-116); ANION GAP 14 (8-16); ASPARTATE AMINO TRANSFERASE 14 U/L (10-37); BILIRUBIN,TOTAL 0.6 MG/DL (0.1-1.0); BLOOD UREA NITROGEN 16 MG/DL (7-18); BUN/CREATININE RATIO 13.7 (6.6-38.0); CALCIUM 8.6 MG/DL (8.5-10.1); CHLORIDE 108 MMOL/L (99-107); CREATININE 1.17 MG/DL (0.40-0.90); GLUCOSE 109 MG/DL (70-104); POTASSIUM 3.1 MMOL/L (3.5-5.1); SODIUM 144 MMOL/L (135-145); TOTAL CARBON DIOXIDE 22.5 MMOL/L (24-32); VANCOMYCIN,TROUGH 17.4 UG/ML (6.0-14.0); eGFR 47 ML/MIN
[2021-06-05] MEDS: K and/or MAG REPLACEMENT MC SCH ×2 (08:54→20:00)
[2021-06-05] MEDS ORDERED: VANCOMYCIN LEVEL IV ONE (09:30)
[2021-06-05] MEDS ORDERED: POTASSIUM BICARB 20meq eff tab 20 MEQ TABLET.EFF PO PRN ×3 (10:20→11:25)
[2021-06-05] MEDS ORDERED: potassium Cl 20 mEq SR tablet PO PRN ×2 (10:20)
[2021-06-05] MEDS: vancomycin/NS 1 GM ADD-VANTAGE 250 ML IV SCH ×2 (10:22→22:12)
[2021-06-05 11:00] VITALS: BP 133/87
[2021-06-05] MEDS: POTASSIUM BICARB 20meq eff tab 20 MEQ TABLET.EFF PO PRN ×3 (11:39→22:15)
[2021-06-05 18:30] VITALS: BP 133/81
[2021-06-05] MEDS: lactobacillus rhamnosus 10,000 MMU CELLS/CAPSULE PO SCH (20:23)
[2021-06-05 23:00] VITALS: BP 130/80
[2021-06-06] MEDS: ondansetron/PF 4mg/2ml inj IV PRN ×3 (00:20→14:21)
[2021-06-06] MEDS: diphenhydrAMINE 50 mg/ml inj IV PRN ×3 (02:04→20:15)
[2021-06-06] MEDS: HYDROmorphone inj. 0.5 MG/0.5 ML DISP.SYRIN IV PRN ×6 (02:04→22:42)
[2021-06-06] MEDS: LORazepam 2 mg/ml vial IV PRN (02:11)
[2021-06-06] MEDS: proCHLORperazine 10 MG/2 ml inj IV PRN ×2 (04:11→17:07)
[2021-06-06 06:24] LABS: BASOPHILS # (AUTO) 0.1 X10'3 (0-0.2); BASOPHILS % (AUTO) 1.1 % (0-1); EOSINOPHILS # (AUTO) 0.2 X10'3 (0-0.9); EOSINOPHILS % (AUTO) 1.9 % (0-6); HEMATOCRIT 32.3 % (35.0-45.0); HEMOGLOBIN 10.8 g/dl (12.0-16.0); LYMPHOCYTES # (AUTO) 3.9 X10'3 (1.1-4.8); LYMPHOCYTES % (AUTO) 33.7 % (21-51); MEAN CORPUSCULAR HEMOGLOBIN 29.8 PG (27.0-31.0); MEAN CORPUSCULAR HGB CONC 33.5 g/dL (33.0-36.5); MEAN CORPUSCULAR VOLUME 89.2 FL (78-98); MONOCYTES # (AUTO) 1.2 X10'3 (0-0.9); MONOCYTES % (AUTO) 10.6 % (2-12); NEUTROPHILS # (AUTO) 6.1 X10'3 (1.8-7.7); NEUTROPHILS % (AUTO) 52.7 % (42-75); PLATELET COUNT 251 X10'3 (140-440); RED BLOOD COUNT 3.62 X10'6 (4.20-5.60); RED CELL DISTRIBUTION WIDTH 15.1 % (11.5-14.5); WHITE BLOOD COUNT 11.7 X10'3 (4.5-11.0)
--- NOTE | 2021-06-06 06:35 | NUR ---
Patient in room [facility]. I have received report from Aliyah RN with Jonelle BURNS and had the opportunity to ask questions and assume patient care.
--- NOTE | 2021-06-06 06:40 | NUR ---
Problems reprioritized. Patient report given, questions answered & plan of care reviewed with GRANT Sal.
[2021-06-06 06:44] LABS: ALANINE AMINOTRANSFERASE 21 U/L (12-78); ALBUMIN 3.1 G/DL (3.4-5.0); ALBUMIN/GLOBULIN RATIO 0.9 (1.1-1.5); ALKALINE PHOSPHATASE 68 IU/L (46-116); ANION GAP 14 (8-16); ASPARTATE AMINO TRANSFERASE 16 U/L (10-37); BILIRUBIN,TOTAL 0.4 MG/DL (0.1-1.0); BLOOD UREA NITROGEN 19 MG/DL (7-18); BUN/CREATININE RATIO 13.9 (6.6-38.0); CALCIUM 8.3 MG/DL (8.5-10.1); CHLORIDE 108 MMOL/L (99-107); CREATININE 1.37 MG/DL (0.40-0.90); GLUCOSE 125 MG/DL (70-104); POTASSIUM 3.3 MMOL/L (3.5-5.1); SODIUM 143 MMOL/L (135-145); TOTAL CARBON DIOXIDE 20.8 MMOL/L (24-32); TOTAL PROTEIN 6.4 G/DL (6.4-8.2); eGFR 39 ML/MIN
[2021-06-06 08:00] VITALS: BP 110/55
[2021-06-06] MEDS: K and/or MAG REPLACEMENT MC SCH ×2 (08:00→20:11)
[2021-06-06] MEDS: docusate sod 100mg capsule PO SCH ×2 (08:54→20:00)
[2021-06-06] MEDS: amLODIPine 5mg tablet PO SCH (08:54)
[2021-06-06] MEDS: LORazepam 0.5 MG tablet PO PRN ×3 (08:55→22:45)
[2021-06-06] MEDS: lactobacillus rhamnosus 10,000 MMU CELLS/CAPSULE PO SCH ×2 (08:55→20:10)
[2021-06-06] MEDS: heparin, porcine 5000 units/ml vial SQ SCH ×2 (08:55→20:09)
[2021-06-06] MEDS ORDERED: proCHLORperazine 10mg tablet PO PRN (09:10)
[2021-06-06] MEDS: pantoprazole 40 MG vial IV SCH (10:12)
[2021-06-06] MEDS: POTASSIUM BICARB 20meq eff tab 20 MEQ TABLET.EFF PO PRN ×3 (10:12→21:03)
[2021-06-06] MEDS: CefTRIAXone/D5W-Rocephin 1gm 50 ML IV SCH (10:12)
[2021-06-06 11:00] VITALS: BP 140/78
[2021-06-06] MEDS: vancomycin/NS 1 GM ADD-VANTAGE 250 ML IV SCH ×2 (11:48→22:10)
[2021-06-06] MEDS: normal saline 1000ml 1,000 ML IV SCH ×2 (14:44→23:52)
--- NOTE | 2021-06-06 17:46 | NUR ---
Student documentation: I have reviewed and agree with all interventions, assessments performed and documented by Marguerite López
--- NOTE | 2021-06-06 18:05 | NUR ---
Problems reprioritized. Patient report given TO BENJAMIN BURNS WITH TREY BURNS, questions answered & plan of care reviewed with .
--- NOTE | 2021-06-06 18:11 | NUR ---
Problems reprioritized. Patient report given, questions answered & plan of care reviewed with Braulio UBRNS.
[2021-06-06 20:00] VITALS: BP 140/81
[2021-06-07] VITALS: BP 159/91
[2021-06-07] MEDS: HYDROmorphone inj. 0.5 MG/0.5 ML DISP.SYRIN IV PRN ×2 (03:26→07:42)
[2021-06-07] MEDS: normal saline 1000ml 1,000 ML IV SCH (03:47)
--- NOTE | 2021-06-07 06:00 | NUR ---
I have received report from Charge Nurse Arely BURNS and had the opportunity to ask questions and assume patient care.
--- NOTE | 2021-06-07 06:15 | NUR ---
Patient in room [facility]. I have received report from keyla BURNS with chirag BURNS and had the opportunity to ask questions and assume patient care.
--- NOTE | 2021-06-07 06:17 | NUR ---
Problems reprioritized. Patient report given, questions answered & plan of care reviewed with SAÚL. Addendum: 06/07/21 at 0618 by Nathanael Morelos RN Amended: Links added.
[2021-06-07 06:50] LABS: BASOPHILS # (AUTO) 0.1 X10'3 (0-0.2); BASOPHILS % (AUTO) 1.1 % (0-1); EOSINOPHILS # (AUTO) 0.4 X10'3 (0-0.9); EOSINOPHILS % (AUTO) 2.9 % (0-6); HEMATOCRIT 30.8 % (35.0-45.0); HEMOGLOBIN 10.3 g/dl (12.0-16.0); LYMPHOCYTES # (AUTO) 3.6 X10'3 (1.1-4.8); LYMPHOCYTES % (AUTO) 29.2 % (21-51); MEAN CORPUSCULAR HEMOGLOBIN 29.8 PG (27.0-31.0); MEAN CORPUSCULAR HGB CONC 33.6 g/dL (33.0-36.5); MEAN CORPUSCULAR VOLUME 88.9 FL (78-98); MEAN PLATELET VOLUME 8.6 FL (7.4-10.4); MONOCYTES # (AUTO) 1.4 X10'3 (0-0.9); MONOCYTES % (AUTO) 11.4 % (2-12); NEUTROPHILS # (AUTO) 6.8 X10'3 (1.8-7.7); NEUTROPHILS % (AUTO) 55.4 % (42-75); PLATELET COUNT 238 X10'3 (140-440); RED BLOOD COUNT 3.47 X10'6 (4.20-5.60); RED CELL DISTRIBUTION WIDTH 14.9 % (11.5-14.5); WHITE BLOOD COUNT 12.3 X10'3 (4.5-11.0)
[2021-06-07 07:15] LABS: ALANINE AMINOTRANSFERASE 27 U/L (12-78); ALBUMIN 2.9 G/DL (3.4-5.0); ALBUMIN/GLOBULIN RATIO 0.9 (1.1-1.5); ALKALINE PHOSPHATASE 66 IU/L (46-116); ANION GAP 10 (8-16); ASPARTATE AMINO TRANSFERASE 24 U/L (10-37); BILIRUBIN,TOTAL 0.3 MG/DL (0.1-1.0); BLOOD UREA NITROGEN 15 MG/DL (7-18); BUN/CREATININE RATIO 13.2 (6.6-38.0); CALCIUM 8.6 MG/DL (8.5-10.1); CHLORIDE 109 MMOL/L (99-107); CREATININE 1.14 MG/DL (0.40-0.90); GLUCOSE 97 MG/DL (70-104); POTASSIUM 3.8 MMOL/L (3.5-5.1); SODIUM 143 MMOL/L (135-145); TOTAL CARBON DIOXIDE 24.1 MMOL/L (24-32); TOTAL PROTEIN 6.2 G/DL (6.4-8.2); eGFR 49 ML/MIN
[2021-06-07] MEDS ORDERED: pantoprazole 40mg Tablet.DR PO SCH (07:30)
[2021-06-07] MEDS: amLODIPine 5mg tablet PO SCH (07:39)
[2021-06-07] MEDS: lactobacillus rhamnosus 10,000 MMU CELLS/CAPSULE PO SCH (07:39)
[2021-06-07] MEDS: ondansetron/PF 4mg/2ml inj IV PRN ×2 (07:40→16:26)
[2021-06-07] MEDS: heparin, porcine 5000 units/ml vial SQ SCH (07:40)
[2021-06-07] MEDS: LORazepam 0.5 MG tablet PO PRN (07:40)
[2021-06-07] MEDS: diphenhydrAMINE 50 mg/ml inj IV PRN ×2 (07:40→14:55)
[2021-06-07] MEDS: docusate sod 100mg capsule PO SCH (07:43)
[2021-06-07 08:00] VITALS: BP 146/85
[2021-06-07] MEDS: K and/or MAG REPLACEMENT MC SCH (08:00)
[2021-06-07] MEDS ORDERED: HYDROmorphone inj. 0.5 MG/0.5 ML DISP.SYRIN IV PRN (10:30)
[2021-06-07 11:00] VITALS: BP 151/86
[2021-06-07] MEDS: proCHLORperazine 10 MG/2 ml inj IV PRN (12:09)
[2021-06-07] MEDS: HYDROmorphone 1 mg/ml syringe IV PRN ×2 (12:10→16:26)
--- NOTE | 2021-06-07 12:45 | NUR ---
ASSUMED CARE AGREE WITH PRIMARY NURSE'S ASSESSMENT
--- NOTE | 2021-06-07 14:26 | NUR ---
PAGER ID: [phone] MESSAGE: [id number] has a midline placed now. Can be Carla Martinez [phone]
[2021-06-07] MEDS ORDERED: cefazolin/dext.iso 2gm/100ml 100 ML IV SCH (16:00)
--- NOTE | 2021-06-07 16:45 | NUR ---
patient ok to D/C per Dr Valdes. Patient sent home with right upper arm midline for continued antibiotic use. Discharge instruction given and patient understands. PIV removed cannula intact. Patient transported home with [facility]. All belongings were accounted for and patient in stable condition.
== END 2021-06-07 16:38 | disposition home health service (06) | DRG 314 ==
LOC: ER 12:50 → ED HOLD 20:33 → SUR 3N 06-04 17:23
PROVIDERS: ADMIT Internal Medicine; ATTEND Internal Medicine
PROC: 0JPT0WZ Removal of Totally Implantable Vascular Access Device from Trunk Subcutaneous Tissue and Fascia, Open Approach (ICD-10-PCS; principal; 2021-06-04)
DX: T80.219A Unspecified infection due to central venous catheter, initial encounter (principal); A41.2 Sepsis due to unspecified staphylococcus; N17.9 Acute kidney failure, unspecified; K31.84 Gastroparesis; F12.90 Cannabis use, unspecified, uncomplicated; F41.9 Anxiety disorder, unspecified; E87.6 Hypokalemia; Z20.822 Contact with and (suspected) exposure to COVID-19; G89.4 Chronic pain syndrome; I10 Essential (primary) hypertension; E11.43 Type 2 diabetes mellitus with diabetic autonomic (poly)neuropathy; Y84.8 Other medical procedures as the cause of abnormal reaction of the patient, or of later complication, without mention of misadventure at the time of the procedure; Z79.899 Other long term (current) drug therapy; Z88.2 Allergy status to sulfonamides; Z88.8 Allergy status to other drugs, medicaments and biological substances; Z90.49 Acquired absence of other specified parts of digestive tract; Y92.89 Other specified places as the place of occurrence of the external cause
CPT/HCPCS: 36415; 36590; 71045; 76937; 80053; 80202; 83605; 84145; 85025; 87040; 87081; 87186; 87635; 93306; 99285; C9113; G0378; J0360; J0696; J0780; J1170; J1200; J1644; J2060; J2405; J3370; J7030; Q0164

== ENCOUNTER 2021-06-10 09:56 | Inpatient (IN) | payer MEDICARE, MEDICAID ==
[~2021-06-10] VITALS: Ht 160 cm; Wt 100.6 kg
[2021-06-10 17:18] LABS: BASOPHILS # (AUTO) 0.2 X10'3 (0-0.2); BASOPHILS % (AUTO) 0.9 % (0-1); EOSINOPHILS # (AUTO) 0.5 X10'3 (0-0.9); EOSINOPHILS % (AUTO) 2.8 % (0-6); HEMATOCRIT 34.6 % (35.0-45.0); HEMOGLOBIN 11.8 g/dl (12.0-16.0); LYMPHOCYTES # (AUTO) 3.9 X10'3 (1.1-4.8); LYMPHOCYTES % (AUTO) 21.6 % (21-51); MEAN CORPUSCULAR HEMOGLOBIN 30.2 PG (27.0-31.0); MEAN CORPUSCULAR HGB CONC 34.1 g/dL (33.0-36.5); MEAN CORPUSCULAR VOLUME 88.5 FL (78-98); MEAN PLATELET VOLUME 8.5 FL (7.4-10.4); MONOCYTES # (AUTO) 1.8 X10'3 (0-0.9); MONOCYTES % (AUTO) 10.2 % (2-12); NEUTROPHILS # (AUTO) 11.6 X10'3 (1.8-7.7); NEUTROPHILS % (AUTO) 64.5 % (42-75); PLATELET COUNT 336 X10'3 (140-440); RED CELL DISTRIBUTION WIDTH 14.3 % (11.5-14.5)
[2021-06-10 17:31] LABS: ALANINE AMINOTRANSFERASE 16 U/L (12-78); ALBUMIN 3.5 G/DL (3.4-5.0); ALBUMIN/GLOBULIN RATIO 0.9 (1.1-1.5); ALKALINE PHOSPHATASE 87 IU/L (46-116); ANION GAP 10 (8-16); ASPARTATE AMINO TRANSFERASE 11 U/L (10-37); BILIRUBIN,TOTAL 0.4 MG/DL (0.1-1.0); BLOOD UREA NITROGEN 19 MG/DL (7-18); BUN/CREATININE RATIO 13.2 (6.6-38.0); CALCIUM 9.4 MG/DL (8.5-10.1); CHLORIDE 106 MMOL/L (99-107); CREATININE 1.44 MG/DL (0.40-0.90); GLUCOSE 89 MG/DL (70-104); MAGNESIUM 1.7 MG/DL (1.5-2.4); POTASSIUM 4.1 MMOL/L (3.5-5.1); SODIUM 141 MMOL/L (135-145); TOTAL CARBON DIOXIDE 24.8 MMOL/L (24-32); TOTAL PROTEIN 7.4 G/DL (6.4-8.2); eGFR 37 ML/MIN
[2021-06-10] MEDS ORDERED: enoxaparin 100mg/ml syringe SUBCUT ONE (18:25)
[2021-06-10] MEDS ORDERED: DIPH25CA83 PO (18:48)
[2021-06-10] MEDS ORDERED: LORA-269 PO (18:48)
[2021-06-10] MEDS ORDERED: DOMPERIDONE (18:51)
[2021-06-10] MEDS ORDERED: HYDROmorphone 1 mg/ml syringe IV ONE (19:40)
[2021-06-10] MEDS ORDERED: ondansetron/PF 4mg/2ml inj IV ONE (19:40)
[2021-06-10] MEDS ORDERED: diphenhydrAMINE 50 mg/ml inj IV ONE (19:40)
[2021-06-10] MEDS ORDERED: potassium Cl 20 mEq SR tablet PO PRN ×2 (20:20)
[2021-06-10] MEDS ORDERED: magnesium 4gm in 100ml NS 100 ML IV PRN (20:20)
[2021-06-10] MEDS ORDERED: potassium Cl 40MEQ/1/2NS 520ml 520 ML IV PRN ×2 (20:20)
[2021-06-10] MEDS ORDERED: HYDROcodone/acetaminophen 5mg/325mg tablet PO PRN (20:20)
[2021-06-10] MEDS ORDERED: HYDROmorphone inj. 0.5 MG/0.5 ML DISP.SYRIN IV PRN (20:20)
[2021-06-10] MEDS: normal saline 1000ml 1,000 ML IV SCH (20:20)
[2021-06-10] MEDS ORDERED: morphine 2 MG/ML inj. syringe IV PRN (20:20)
[2021-06-10] MEDS ORDERED: acetaminophen 325mg tablet PO PRN ×2 (20:20)
[2021-06-10] MEDS ORDERED: magnesium 2GM in 50ml NS 50 ML IV PRN (20:20)
[2021-06-10] MEDS ORDERED: magnesium Cl slow-release 64mg tablet PO PRN (20:20)
[2021-06-10] MEDS ORDERED: magnesium hydroxide 30ml (MOM) UD suspension PO PRN (20:20)
[2021-06-10] MEDS ORDERED: mag hydrox/Alum hydrox/simeth 30ml oral suspension PO PRN (20:20)
[2021-06-10 23:42] LABS: PARTIAL THROMBOPLASTIN TIME 29 SECONDS (22-32)
[2021-06-10] MEDS: morphine 2 MG/ML inj. syringe IV PRN (23:59)
--- NOTE | 2021-06-11 | NUR ---
patient ate burger and fries and soda brought from family. I told patient she is on full liquids, but she stated that she hasnt eaten since yesterday night and needs to eat or will get sick. Patient ate and fell asleep. no issues, advance diet as tolerated per Dr. Null.
[2021-06-11] MEDS: heparin 10,000 units/1 ML INJ IV PRN (00:45)
[2021-06-11] MEDS: heparin 25,000 UNIT/250ml bag 250 ML IV SCH ×4 (00:46→17:52)
--- NOTE | 2021-06-11 01:17 | NUR ---
PATIENT ASLEEP SNORING
[2021-06-11] MEDS: ondansetron/PF 4mg/2ml inj IV PRN (04:24)
[2021-06-11] MEDS: morphine 2 MG/ML inj. syringe IV PRN ×5 (04:24→22:41)
[2021-06-11] MEDS: normal saline 1000ml 1,000 ML IV SCH ×2 (04:25→17:55)
--- NOTE | 2021-06-11 04:36 | NUR ---
removed MIDLINE after patient was very insistant and demanding I take it out. Patient never had a PICC just a midline to right upper arm. Removed and placed drsg.
[2021-06-11] MEDS ORDERED: non-formulary drug (Ondansetron (Ondansetron Odt) 1 TAB) PO PRN (06:20)
[2021-06-11] MEDS ORDERED: HYDROmorphone 2mg tablet PO PRN (06:20)
--- NOTE | 2021-06-11 07:15 | NUR ---
patient received in bed awake, blood hieu from piv 22 gauge for ptt.Call light within reach.
[2021-06-11 07:44] LABS: PARTIAL THROMBOPLASTIN TIME 60 SECONDS (22-32)
[2021-06-11] MEDS: K and/or MAG REPLACEMENT MC SCH ×2 (08:00→20:00)
--- NOTE | 2021-06-11 08:24 | NUR ---
ptt 60,heparin therapeutic range,no rate change.
[2021-06-11] MEDS: LORazepam 1 MG tablet PO SCH (08:38)
[2021-06-11] MEDS: diphenhydrAMINE 25mg capsule PO SCH ×2 (08:38→21:31)
[2021-06-11] MEDS: pantoprazole 40mg Tablet.DR PO SCH (08:38)
[2021-06-11] MEDS: lisinopril 20mg tablet PO SCH (08:41)
[2021-06-11] MEDS: vancomycin/NS 1 GM ADD-VANTAGE 250 ML X 1 DOSE IV SCH ×2 (08:41→22:40)
[2021-06-11] MEDS: amLODIPine 5mg tablet PO SCH (08:44)
[2021-06-11 10:21] LABS: CLARITY,URINE Slightly Cloudy (Clear); COLOR,URINE YELLOW (Yellow); UA COLLECTION TYPE CLN CATCH MIDSTREAM
[2021-06-11 10:22] LABS: GLUCOSE, URINE NEGATIVE (Neg); KETONES,URINE NEGATIVE (Neg); LEUKOCYTE ESTERASE ,URINE TRACE (Neg); NITRITES, URINE NEGATIVE (Neg); OCCULT BLOOD,URINE NEGATIVE (Neg); PROTEIN,URINE TRACE mg/dl (Neg); UROBILINOGEN,URINE 0.2 E.U/dL (0.2-1.0)
[2021-06-11 10:24] LABS: RBC,URINE 0-2 /HPF (0-2); WBC,URINE 0-4 /HPF (0-4)
[2021-06-11 10:25] LABS: BACTERIA,URINE FEW /HPF (Neg); MUCUS STRANDS FEW /LPF (Neg); SQUAMOUS EPITHELIAL CELL,UR MODERATE /LPF (FEW); WBC CLUMPS,URINE FEW /HPF (NEGATIVE); YEAST FEW /HPF (NEGATIVE)
--- NOTE | 2021-06-11 14:09 | NUR ---
Patient eating lunch.
--- NOTE | 2021-06-11 14:39 | NUR ---
ptt 59,no rate change.We will monitor.
[2021-06-11 18:00] VITALS: BP 130/76
--- NOTE | 2021-06-11 18:50 | NUR ---
Patient in room ED 16. I have received report from Frida BRASS SORTER and had the opportunity to ask questions and assume patient care.
[2021-06-11 19:15] VITALS: BP 130/76
--- NOTE | 2021-06-11 19:50 | NUR ---
Patient arrived to floor. Got herself up to walk to restroom with SBA. VSS. C/O pain 8/ to right upper arm.
[2021-06-11] MEDS: lactobacillus rhamnosus 10,000 MMU CELLS/CAPSULE PO SCH (21:31)
[2021-06-12] VITALS: BP 138/71
[2021-06-12] MEDS: morphine 2 MG/ML inj. syringe IV PRN ×6 (03:00→23:27)
[2021-06-12] MEDS: normal saline 1000ml 1,000 ML IV SCH ×3 (03:00→19:37)
[2021-06-12 03:32] LABS: ALANINE AMINOTRANSFERASE 16 U/L (12-78); ALBUMIN 2.5 G/DL (3.4-5.0); ALBUMIN/GLOBULIN RATIO 0.7 (1.1-1.5); ALKALINE PHOSPHATASE 67 IU/L (46-116); ANION GAP 7 (8-16); ASPARTATE AMINO TRANSFERASE 15 U/L (10-37); BILIRUBIN,TOTAL 0.2 MG/DL (0.1-1.0); BLOOD UREA NITROGEN 15 MG/DL (7-18); BUN/CREATININE RATIO 12.8 (6.6-38.0); CHLORIDE 109 MMOL/L (99-107); CREATININE 1.17 MG/DL (0.40-0.90); GLUCOSE 114 MG/DL (70-104); MAGNESIUM 1.7 MG/DL (1.5-2.4); POTASSIUM 3.7 MMOL/L (3.5-5.1); SODIUM 141 MMOL/L (135-145); TOTAL CARBON DIOXIDE 24.6 MMOL/L (24-32); TOTAL PROTEIN 5.9 G/DL (6.4-8.2); eGFR 47 ML/MIN
[2021-06-12] MEDS: heparin 10,000 units/1 ML INJ IV PRN ×2 (04:11→17:24)
--- NOTE | 2021-06-12 06:10 | NUR ---
Patient in room [facility]. I have received report from GRANT Logan and had the opportunity to ask questions and assume patient care.
[2021-06-12 06:30] VITALS: BP 180/84
[2021-06-12 06:40] LABS: BASOPHILS # (AUTO) 0.1 X10'3 (0-0.2); EOSINOPHILS # (AUTO) 0.8 X10'3 (0-0.9); EOSINOPHILS % (AUTO) 6.4 % (0-6); HEMOGLOBIN 9.9 g/dl (12.0-16.0); LYMPHOCYTES # (AUTO) 4.4 X10'3 (1.1-4.8); LYMPHOCYTES % (AUTO) 36.6 % (21-51); MEAN CORPUSCULAR HEMOGLOBIN 30.4 PG (27.0-31.0); MEAN CORPUSCULAR VOLUME 89.3 FL (78-98); MEAN PLATELET VOLUME 9.4 FL (7.4-10.4); MONOCYTES # (AUTO) 1.4 X10'3 (0-0.9); NEUTROPHILS # (AUTO) 5.2 X10'3 (1.8-7.7); PLATELET COUNT 271 X10'3 (140-440); RED BLOOD COUNT 3.25 X10'6 (4.20-5.60); RED CELL DISTRIBUTION WIDTH 15.1 % (11.5-14.5); WHITE BLOOD COUNT 11.9 X10'3 (4.5-11.0)
--- NOTE | 2021-06-12 07:01 | NUR ---
Problems reprioritized. Patient report given, questions answered & plan of care reviewed with GRANT Ly.
[2021-06-12] MEDS: heparin 25,000 UNIT/250ml bag 250 ML IV SCH ×4 (07:31→23:38)
[2021-06-12] MEDS: K and/or MAG REPLACEMENT MC SCH ×2 (08:00→19:37)
[2021-06-12 11:00] VITALS: BP 166/85
[2021-06-12] MEDS: pantoprazole 40mg Tablet.DR PO SCH (11:08)
[2021-06-12] MEDS: vancomycin/NS 1 GM ADD-VANTAGE 250 ML X 1 DOSE IV SCH ×2 (11:08→19:18)
[2021-06-12] MEDS: diphenhydrAMINE 25mg capsule PO SCH ×2 (11:08→19:18)
[2021-06-12] MEDS: lactobacillus rhamnosus 10,000 MMU CELLS/CAPSULE PO SCH ×2 (11:08→19:18)
[2021-06-12] MEDS: LORazepam 1 MG tablet PO SCH (11:09)
[2021-06-12] MEDS: amLODIPine 5mg tablet PO SCH (11:09)
[2021-06-12] MEDS: lisinopril 20mg tablet PO SCH (11:09)
--- NOTE | 2021-06-12 11:30 | NUR ---
Rec'd call from lab re: PTT = 131. Heparin gtt stopped immediately. Primary RN, Aliyah, notified.
[2021-06-12] MEDS: HYDROcodone/acetaminophen 10/325mg tab PO PRN ×3 (13:10→21:12)
[2021-06-12 18:30] VITALS: BP 117/67
[2021-06-12] MEDS ORDERED: VANCOMYCIN LEVEL IV ONE (19:30)
[2021-06-12 23:00] VITALS: BP 144/65
[2021-06-13] MEDS: heparin 10,000 units/1 ML INJ IV PRN ×2 (00:35→12:39)
[2021-06-13] MEDS: heparin 25,000 UNIT/250ml bag 250 ML IV SCH ×2 (00:37→12:41)
[2021-06-13] MEDS: HYDROcodone/acetaminophen 10/325mg tab PO PRN ×3 (00:42→18:59)
[2021-06-13] MEDS: morphine 2 MG/ML inj. syringe IV PRN ×5 (02:59→21:31)
[2021-06-13] MEDS: ondansetron/PF 4mg/2ml inj IV PRN (03:50)
--- NOTE | 2021-06-13 06:00 | NUR ---
Problems reprioritized. Patient report given, questions answered & plan of care reviewed with GRANT Pal.
[2021-06-13 06:53] LABS: BASOPHILS # (AUTO) 0.1 X10'3 (0-0.2); BASOPHILS % (AUTO) 0.7 % (0-1); EOSINOPHILS # (AUTO) 0.6 X10'3 (0-0.9); HEMATOCRIT 28.2 % (35.0-45.0); HEMOGLOBIN 9.7 g/dl (12.0-16.0); LYMPHOCYTES # (AUTO) 3.6 X10'3 (1.1-4.8); LYMPHOCYTES % (AUTO) 33.2 % (21-51); MEAN CORPUSCULAR HEMOGLOBIN 30.7 PG (27.0-31.0); MEAN CORPUSCULAR HGB CONC 34.3 g/dL (33.0-36.5); MEAN CORPUSCULAR VOLUME 89.4 FL (78-98); MEAN PLATELET VOLUME 9.3 FL (7.4-10.4); MONOCYTES # (AUTO) 1.4 X10'3 (0-0.9); MONOCYTES % (AUTO) 13.2 % (2-12); NEUTROPHILS # (AUTO) 5.1 X10'3 (1.8-7.7); NEUTROPHILS % (AUTO) 46.9 % (42-75); PLATELET COUNT 273 X10'3 (140-440); RED BLOOD COUNT 3.15 X10'6 (4.20-5.60); RED CELL DISTRIBUTION WIDTH 14.8 % (11.5-14.5); WHITE BLOOD COUNT 10.8 X10'3 (4.5-11.0)
[2021-06-13 07:00] VITALS: BP 183/74
[2021-06-13 07:07] LABS: ALANINE AMINOTRANSFERASE 17 U/L (12-78); ALBUMIN 2.8 G/DL (3.4-5.0); ALBUMIN/GLOBULIN RATIO 0.8 (1.1-1.5); ALKALINE PHOSPHATASE 68 IU/L (46-116); ANION GAP 7 (8-16); ASPARTATE AMINO TRANSFERASE 15 U/L (10-37); BILIRUBIN,TOTAL 0.2 MG/DL (0.1-1.0); BLOOD UREA NITROGEN 13 MG/DL (7-18); CALCIUM 8.2 MG/DL (8.5-10.1); CHLORIDE 108 MMOL/L (99-107); GLUCOSE 103 MG/DL (70-104); MAGNESIUM 1.6 MG/DL (1.5-2.4); POTASSIUM 3.7 MMOL/L (3.5-5.1); SODIUM 139 MMOL/L (135-145); TOTAL CARBON DIOXIDE 24.3 MMOL/L (24-32); TOTAL PROTEIN 6.2 G/DL (6.4-8.2); eGFR 57 ML/MIN
[2021-06-13] MEDS: lactobacillus rhamnosus 10,000 MMU CELLS/CAPSULE PO SCH ×2 (07:46→20:06)
[2021-06-13] MEDS: vancomycin/NS 1 GM ADD-VANTAGE 250 ML X 1 DOSE IV SCH ×2 (07:46→23:08)
[2021-06-13] MEDS: amLODIPine 5mg tablet PO SCH (07:47)
[2021-06-13] MEDS: pantoprazole 40mg Tablet.DR PO SCH (07:47)
[2021-06-13] MEDS: diphenhydrAMINE 25mg capsule PO SCH ×2 (07:47→20:06)
[2021-06-13] MEDS: LORazepam 1 MG tablet PO SCH (07:47)
[2021-06-13] MEDS: lisinopril 20mg tablet PO SCH (07:48)
[2021-06-13] MEDS: K and/or MAG REPLACEMENT MC SCH ×2 (08:00→20:00)
[2021-06-13] MEDS: normal saline 1000ml 1,000 ML IV SCH ×2 (08:20→14:49)
[2021-06-13 11:00] VITALS: BP 164/73
--- NOTE | 2021-06-13 17:59 | NUR ---
Problems reprioritized. Patient report given, questions answered & plan of care reviewed with GRANT Olguin.
[2021-06-13 18:00] VITALS: BP 98/65
--- NOTE | 2021-06-13 18:46 | NUR ---
Patient in room [facility]. I have received report from GRANT Pal and had the opportunity to ask questions and assume patient care.
[2021-06-14] VITALS: BP 154/70
[2021-06-14 01:37] LABS: ALANINE AMINOTRANSFERASE 22 U/L (12-78); ALBUMIN 2.7 G/DL (3.4-5.0); ALBUMIN/GLOBULIN RATIO 0.8 (1.1-1.5); ALKALINE PHOSPHATASE 70 IU/L (46-116); ANION GAP 12 (8-16); ASPARTATE AMINO TRANSFERASE 18 U/L (10-37); BILIRUBIN,TOTAL 0.2 MG/DL (0.1-1.0); BLOOD UREA NITROGEN 15 MG/DL (7-18); CALCIUM 8.4 MG/DL (8.5-10.1); CHLORIDE 106 MMOL/L (99-107); CREATININE 1.15 MG/DL (0.40-0.90); GLUCOSE 114 MG/DL (70-104); MAGNESIUM 1.6 MG/DL (1.5-2.4); POTASSIUM 3.6 MMOL/L (3.5-5.1); SODIUM 141 MMOL/L (135-145); TOTAL CARBON DIOXIDE 23.3 MMOL/L (24-32); TOTAL PROTEIN 6.1 G/DL (6.4-8.2); eGFR 48 ML/MIN
[2021-06-14] MEDS: heparin 25,000 UNIT/250ml bag 250 ML IV SCH ×3 (01:46→19:47)
[2021-06-14] MEDS: morphine 2 MG/ML inj. syringe IV PRN ×4 (01:53→16:27)
[2021-06-14] MEDS: normal saline 1000ml 1,000 ML IV SCH ×3 (04:20→18:35)
--- NOTE | 2021-06-14 06:41 | NUR ---
Problems reprioritized. Patient report given, questions answered & plan of care reviewed with GRANT Bermeo.
--- NOTE | 2021-06-14 06:44 | NUR ---
Patient in room [facility]. I have received report from Shairf BURNS and had the opportunity to ask questions and assume patient care.
[2021-06-14 07:01] LABS: BASOPHILS # (AUTO) 0.2 X10'3 (0-0.2); BASOPHILS % (AUTO) 1.2 % (0-1); EOSINOPHILS # (AUTO) 0.7 X10'3 (0-0.9); EOSINOPHILS % (AUTO) 5.8 % (0-6); HEMATOCRIT 30.4 % (35.0-45.0); HEMOGLOBIN 10.2 g/dl (12.0-16.0); LYMPHOCYTES # (AUTO) 3.8 X10'3 (1.1-4.8); LYMPHOCYTES % (AUTO) 29.7 % (21-51); MEAN CORPUSCULAR HEMOGLOBIN 30.2 PG (27.0-31.0); MEAN CORPUSCULAR HGB CONC 33.4 g/dL (33.0-36.5); MEAN CORPUSCULAR VOLUME 90.5 FL (78-98); MEAN PLATELET VOLUME 9.7 FL (7.4-10.4); MONOCYTES # (AUTO) 1.8 X10'3 (0-0.9); NEUTROPHILS # (AUTO) 6.3 X10'3 (1.8-7.7); NEUTROPHILS % (AUTO) 49.3 % (42-75); PLATELET COUNT 314 X10'3 (140-440); RED BLOOD COUNT 3.36 X10'6 (4.20-5.60); RED CELL DISTRIBUTION WIDTH 14.7 % (11.5-14.5); WHITE BLOOD COUNT 12.7 X10'3 (4.5-11.0)
[2021-06-14] MEDS: vancomycin/NS 1 GM ADD-VANTAGE 250 ML X 1 DOSE IV SCH ×2 (07:38→19:42)
[2021-06-14] MEDS: lactobacillus rhamnosus 10,000 MMU CELLS/CAPSULE PO SCH ×2 (07:47→19:41)
[2021-06-14] MEDS: diphenhydrAMINE 25mg capsule PO SCH ×2 (07:47→19:41)
[2021-06-14] MEDS: lisinopril 20mg tablet PO SCH (07:48)
[2021-06-14] MEDS: amLODIPine 5mg tablet PO SCH (07:48)
[2021-06-14] MEDS: pantoprazole 40mg Tablet.DR PO SCH (07:49)
--- NOTE | 2021-06-14 07:58 | NUR ---
PAGER ID: [phone] MESSAGE: Jean-Claude Surg [id number] Re: [id number] Nori Bose Patient ptt was 107 and is being held for 2hr. per protocol and then decrease by 300 at 0945. thanks Jean-Claude.
[2021-06-14 08:00] VITALS: BP 181/81
[2021-06-14] MEDS: LORazepam 1 MG tablet PO SCH ×2 (08:00→13:49)
[2021-06-14] MEDS: K and/or MAG REPLACEMENT MC SCH ×2 (08:00→20:00)
--- NOTE | 2021-06-14 08:57 | NUR ---
Dr. Maxwell would like to confer with you about PICC options after [facility]. Her number is [phone] This message was sent to Picc nurse per Dr. Maxwell request.
[2021-06-14 11:00] VITALS: BP 189/84
--- NOTE | 2021-06-14 14:31 | NUR ---
Initial: Pt previously admitted w/ infected Port-A-Cath, presents on this admission w/ increased pain over R arm and found to have sepsis per EMR. Pt was eating 100% of meals on Regular diet though is down to 25% since lunch on 06/13. Pt may benefit from ONS to help meet increased protein needs. LBM 06/12. Will continue to monitor. Recs: 1. Continue Regular diet as tolerated 2. Ensure High Protein BID 3. Bowel care per rx 4. Weekly wts Addendum: 06/14/21 at [address] Amended: Links added.
[2021-06-14] MEDS: ondansetron/PF 4mg/2ml inj IV PRN (16:26)
[2021-06-14] MEDS: lactose-reduced food (Ensure High Protein) 237ml bottle PO SCH (17:30)
[2021-06-14 18:00] VITALS: BP 150/90
--- NOTE | 2021-06-14 18:17 | NUR ---
Patient in room [facility] 340A. I have received report from Shanda, Dimension Specification Inspector and GRANT Bermeo and had the opportunity to ask questions and assume patient care.
--- NOTE | 2021-06-14 18:19 | NUR ---
Problems reprioritized. Patient report given, questions answered & plan of care reviewed with Kay BURNS.
[2021-06-14] MEDS: HYDROcodone/acetaminophen 10/325mg tab PO PRN ×2 (19:41→23:50)
[2021-06-14] MEDS: heparin 10,000 units/1 ML INJ IV PRN (19:45)
[2021-06-14] MEDS ORDERED: HYDROmorphone inj. 0.5 MG/0.5 ML DISP.SYRIN IV ONE (20:55)
[2021-06-15] VITALS: BP 131/56
[2021-06-15] MEDS: morphine 2 MG/ML inj. syringe IV PRN ×3 (02:23→12:11)
--- NOTE | 2021-06-15 06:22 | NUR ---
Student documentation: I have reviewed and agree with all interventions, assessments performed and documented by Vernon Room Service Server.
[2021-06-15] MEDS: ondansetron/PF 4mg/2ml inj IV PRN (07:16)
[2021-06-15 07:19] LABS: BASOPHILS # (AUTO) 0.2 X10'3 (0-0.2); BASOPHILS % (AUTO) 0.9 % (0-1); EOSINOPHILS # (AUTO) 0.6 X10'3 (0-0.9); EOSINOPHILS % (AUTO) 2.9 % (0-6); HEMATOCRIT 30.7 % (35.0-45.0); HEMOGLOBIN 10.2 g/dl (12.0-16.0); LYMPHOCYTES # (AUTO) 2.8 X10'3 (1.1-4.8); LYMPHOCYTES % (AUTO) 13.9 % (21-51); MEAN CORPUSCULAR HEMOGLOBIN 30.2 PG (27.0-31.0); MEAN CORPUSCULAR HGB CONC 33.3 g/dL (33.0-36.5); MEAN CORPUSCULAR VOLUME 90.7 FL (78-98); MEAN PLATELET VOLUME 8.4 FL (7.4-10.4); MONOCYTES # (AUTO) 2.8 X10'3 (0-0.9); NEUTROPHILS # (AUTO) 13.6 X10'3 (1.8-7.7); NEUTROPHILS % (AUTO) 68.3 % (42-75); PLATELET COUNT 312 X10'3 (140-440); RED BLOOD COUNT 3.38 X10'6 (4.20-5.60); RED CELL DISTRIBUTION WIDTH 14.6 % (11.5-14.5); WHITE BLOOD COUNT 19.9 X10'3 (4.5-11.0)
[2021-06-15] MEDS: lactose-reduced food (Ensure High Protein) 237ml bottle PO SCH ×3 (07:30→19:40)
--- NOTE | 2021-06-15 07:30 | NUR ---
Patient is therapeutic for heparin drip at this time at 64
[2021-06-15 07:35] LABS: ALANINE AMINOTRANSFERASE 23 U/L (12-78); ALBUMIN/GLOBULIN RATIO 0.8 (1.1-1.5); ALKALINE PHOSPHATASE 75 IU/L (46-116); ANION GAP 6 (8-16); ASPARTATE AMINO TRANSFERASE 15 U/L (10-37); BILIRUBIN,TOTAL 0.4 MG/DL (0.1-1.0); BLOOD UREA NITROGEN 11 MG/DL (7-18); CALCIUM 8.7 MG/DL (8.5-10.1); CHLORIDE 102 MMOL/L (99-107); GLUCOSE 109 MG/DL (70-104); MAGNESIUM 1.5 MG/DL (1.5-2.4); POTASSIUM 3.3 MMOL/L (3.5-5.1); SODIUM 132 MMOL/L (135-145); TOTAL CARBON DIOXIDE 23.7 MMOL/L (24-32); TOTAL PROTEIN 6.7 G/DL (6.4-8.2); eGFR 51 ML/MIN
[2021-06-15] MEDS: vancomycin/NS 1 GM ADD-VANTAGE 250 ML X 1 DOSE IV SCH ×2 (07:58→19:33)
[2021-06-15] MEDS: normal saline 1000ml 1,000 ML IV SCH ×2 (07:58→18:48)
[2021-06-15] MEDS: lactobacillus rhamnosus 10,000 MMU CELLS/CAPSULE PO SCH ×2 (08:00→19:35)
[2021-06-15] MEDS: K and/or MAG REPLACEMENT MC SCH ×2 (08:00→20:00)
[2021-06-15] MEDS: lisinopril 20mg tablet PO SCH (08:01)
[2021-06-15] MEDS: diphenhydrAMINE 25mg capsule PO SCH ×2 (08:01→19:36)
[2021-06-15] MEDS: LORazepam 1 MG tablet PO SCH (08:02)
[2021-06-15] MEDS: amLODIPine 5mg tablet PO SCH (08:02)
[2021-06-15] MEDS: pantoprazole 40mg Tablet.DR PO SCH (08:02)
[2021-06-15 08:52] VITALS: BP 113/76
[2021-06-15 09:24] LABS: PLATELET ESTIMATE NORMAL; TOTAL CELLS COUNTED 100
[2021-06-15] MEDS: heparin 25,000 UNIT/250ml bag 250 ML IV SCH ×2 (09:42→23:50)
[2021-06-15 11:00] VITALS: BP 162/75
[2021-06-15] MEDS ORDERED: magnesium 4gm in 100ml NS 100 ML IV PRN (12:10)
[2021-06-15] MEDS ORDERED: potassium Cl 40MEQ/1/2NS 520ml 520 ML IV PRN (12:10)
[2021-06-15] MEDS ORDERED: magnesium 2GM in 50ml NS 50 ML IV PRN (12:10)
[2021-06-15] MEDS ORDERED: potassium Cl 20 mEq SR tablet PO PRN (12:10)
[2021-06-15] MEDS ORDERED: magnesium Cl slow-release 64mg tablet PO PRN (12:10)
--- NOTE | 2021-06-15 13:20 | NUR ---
spoke with MD talked about dc heparin and starting elequis but MD changed mind before order was placed.
--- NOTE | 2021-06-15 14:10 | NUR ---
Patient in therapeutic range for heparin drip at this time.
[2021-06-15] MEDS: HYDROmorphone 1 mg/ml syringe IV PRN ×2 (16:42→21:20)
[2021-06-15 18:00] VITALS: BP 163/85
--- NOTE | 2021-06-15 18:26 | NUR ---
Patient in room [facility] 340A. I have received report from GRANT Bermeo and had the opportunity to ask questions and assume patient care. Patient resting comfortably.
--- NOTE | 2021-06-15 18:37 | NUR ---
Problems reprioritized. Patient report given, questions answered & plan of care reviewed with Kay BURNS.
[2021-06-15] MEDS: potassium Cl 20 mEq SR tablet PO PRN ×2 (18:43→23:50)
[2021-06-15] MEDS: HYDROcodone/acetaminophen 10/325mg tab PO PRN (19:36)
[2021-06-16] VITALS: BP 146/65
[2021-06-16] MEDS: HYDROmorphone 1 mg/ml syringe IV PRN ×5 (01:55→20:26)
[2021-06-16 03:41] LABS: BASOPHILS # (AUTO) 0.2 X10'3 (0-0.2); BASOPHILS % (AUTO) 1.3 % (0-1); EOSINOPHILS # (AUTO) 0.6 X10'3 (0-0.9); EOSINOPHILS % (AUTO) 3.4 % (0-6); HEMATOCRIT 29.2 % (35.0-45.0); HEMOGLOBIN 9.8 g/dl (12.0-16.0); LYMPHOCYTES # (AUTO) 4.1 X10'3 (1.1-4.8); MEAN CORPUSCULAR HEMOGLOBIN 30.3 PG (27.0-31.0); MEAN CORPUSCULAR HGB CONC 33.7 g/dL (33.0-36.5); MEAN CORPUSCULAR VOLUME 89.9 FL (78-98); MEAN PLATELET VOLUME 9.3 FL (7.4-10.4); MONOCYTES # (AUTO) 2.3 X10'3 (0-0.9); MONOCYTES % (AUTO) 12.2 % (2-12); NEUTROPHILS # (AUTO) 11.5 X10'3 (1.8-7.7); NEUTROPHILS % (AUTO) 61.1 % (42-75); PLATELET COUNT 315 X10'3 (140-440); RED BLOOD COUNT 3.25 X10'6 (4.20-5.60); RED CELL DISTRIBUTION WIDTH 14.8 % (11.5-14.5); WHITE BLOOD COUNT 18.8 X10'3 (4.5-11.0)
[2021-06-16 03:57] LABS: ALANINE AMINOTRANSFERASE 22 U/L (12-78); ALBUMIN 2.9 G/DL (3.4-5.0); ALBUMIN/GLOBULIN RATIO 0.8 (1.1-1.5); ALKALINE PHOSPHATASE 74 IU/L (46-116); ANION GAP 11 (8-16); ASPARTATE AMINO TRANSFERASE 13 U/L (10-37); BILIRUBIN,TOTAL 0.3 MG/DL (0.1-1.0); BLOOD UREA NITROGEN 11 MG/DL (7-18); CALCIUM 8.6 MG/DL (8.5-10.1); CHLORIDE 107 MMOL/L (99-107); GLUCOSE 115 MG/DL (70-104); MAGNESIUM 1.5 MG/DL (1.5-2.4); POTASSIUM 3.8 MMOL/L (3.5-5.1); SODIUM 142 MMOL/L (135-145); TOTAL PROTEIN 6.6 G/DL (6.4-8.2); eGFR 51 ML/MIN
--- NOTE | 2021-06-16 04:02 | NUR ---
Patient's DVT PTT level is therapeutic at 57 seconds. No rate changes needed per protocol.
[2021-06-16] MEDS: normal saline 1000ml 1,000 ML IV SCH ×2 (05:28→17:13)
--- NOTE | 2021-06-16 05:39 | NUR ---
Patient received 950 ml of IVF during this shift.
--- NOTE | 2021-06-16 06:22 | NUR ---
Problems reprioritized. Patient report given, questions answered & plan of care reviewed with GRANT Bermeo.
--- NOTE | 2021-06-16 06:22 | NUR ---
Traveler window shade cutter: I have reviewed and agree with all interventions, assessments performed and documented by GRANT Wills
[2021-06-16 07:38] VITALS: BP 131/80
[2021-06-16] MEDS: lactobacillus rhamnosus 10,000 MMU CELLS/CAPSULE PO SCH ×2 (07:58→20:25)
[2021-06-16] MEDS: pantoprazole 40mg Tablet.DR PO SCH (07:58)
[2021-06-16] MEDS: lisinopril 20mg tablet PO SCH (08:00)
[2021-06-16] MEDS: K and/or MAG REPLACEMENT MC SCH ×2 (08:00→20:00)
[2021-06-16] MEDS: amLODIPine 5mg tablet PO SCH (08:00)
[2021-06-16] MEDS: diphenhydrAMINE 25mg capsule PO SCH ×2 (08:01→20:25)
[2021-06-16] MEDS: LORazepam 1 MG tablet PO SCH (08:01)
[2021-06-16] MEDS: vancomycin/NS 1 GM ADD-VANTAGE 250 ML X 1 DOSE IV SCH ×2 (08:01→20:27)
[2021-06-16 11:00] VITALS: BP 122/72
[2021-06-16 11:23] VITALS: BP 166/76
[2021-06-16] MEDS: heparin 25,000 UNIT/250ml bag 250 ML IV SCH ×2 (15:26→17:08)
[2021-06-16] MEDS: lactose-reduced food (Ensure High Protein) 237ml bottle PO SCH (17:30)
--- NOTE | 2021-06-16 18:53 | NUR ---
Problems reprioritized. Patient report given, questions answered & plan of care reviewed with Prudence RN.
[2021-06-16 20:00] VITALS: BP 165/79
[2021-06-16 23:24] VITALS: BP 173/78
[2021-06-17] VITALS: BP 143/76
[2021-06-17] MEDS: HYDROmorphone 1 mg/ml syringe IV PRN ×6 (00:50→22:47)
[2021-06-17] MEDS: normal saline 1000ml 1,000 ML IV SCH ×3 (03:12→22:47)
[2021-06-17] MEDS: heparin 25,000 UNIT/250ml bag 250 ML IV SCH ×2 (03:15→16:32)
[2021-06-17 04:35] LABS: MAGNESIUM 1.7 MG/DL (1.5-2.4); POTASSIUM 3.7 MMOL/L (3.5-5.1)
--- NOTE | 2021-06-17 05:16 | NUR ---
PTT AT 74. WITHIN THERAPEUTIC RANGE
--- NOTE | 2021-06-17 06:23 | NUR ---
Problems reprioritized. Patient report given, questions answered & plan of care reviewed with JESS BURNS.
--- NOTE | 2021-06-17 06:34 | NUR ---
Patient in room [facility]. I have received report from GRANT Acevedo and had the opportunity to ask questions and assume patient care.
[2021-06-17 07:00] VITALS: BP 142/72
[2021-06-17] MEDS: vancomycin/NS 1 GM ADD-VANTAGE 250 ML X 1 DOSE IV SCH ×2 (07:58→21:30)
[2021-06-17] MEDS: LORazepam 1 MG tablet PO SCH (07:59)
[2021-06-17] MEDS: lactobacillus rhamnosus 10,000 MMU CELLS/CAPSULE PO SCH ×2 (07:59→21:30)
[2021-06-17] MEDS: diphenhydrAMINE 25mg capsule PO SCH ×2 (07:59→21:30)
[2021-06-17] MEDS: pantoprazole 40mg Tablet.DR PO SCH (07:59)
[2021-06-17] MEDS: amLODIPine 5mg tablet PO SCH (08:00)
[2021-06-17] MEDS: K and/or MAG REPLACEMENT MC SCH ×2 (08:00→20:00)
[2021-06-17] MEDS: lisinopril 20mg tablet PO SCH (08:04)
[2021-06-17] MEDS: lactose-reduced food (Ensure High Protein) 237ml bottle PO SCH ×2 (08:08→09:37)
[2021-06-17] MEDS: ondansetron/PF 4mg/2ml inj IV PRN ×2 (09:33→18:38)
[2021-06-17 12:19] LABS: ALANINE AMINOTRANSFERASE 19 U/L (12-78); ALBUMIN/GLOBULIN RATIO 0.7 (1.1-1.5); ALKALINE PHOSPHATASE 79 IU/L (46-116); ANION GAP 10 (8-16); ASPARTATE AMINO TRANSFERASE 14 U/L (10-37); BILIRUBIN,TOTAL 0.3 MG/DL (0.1-1.0); BLOOD UREA NITROGEN 10 MG/DL (7-18); BUN/CREATININE RATIO 9.4 (6.6-38.0); CALCIUM 9.1 MG/DL (8.5-10.1); CHLORIDE 106 MMOL/L (99-107); CREATININE 1.06 MG/DL (0.40-0.90); GLUCOSE 126 MG/DL (70-104); SODIUM 139 MMOL/L (135-145); TOTAL CARBON DIOXIDE 23.2 MMOL/L (24-32); TOTAL PROTEIN 7.1 G/DL (6.4-8.2); eGFR 53 ML/MIN
[2021-06-17 12:32] LABS: BASOPHILS # (AUTO) 0.1 X10'3 (0-0.2); BASOPHILS % (AUTO) 0.6 % (0-1); EOSINOPHILS # (AUTO) 0.6 X10'3 (0-0.9); EOSINOPHILS % (AUTO) 3.7 % (0-6); HEMOGLOBIN 9.8 g/dl (12.0-16.0); LYMPHOCYTES # (AUTO) 2.9 X10'3 (1.1-4.8); MEAN CORPUSCULAR HEMOGLOBIN 29.5 PG (27.0-31.0); MEAN CORPUSCULAR HGB CONC 32.6 g/dL (33.0-36.5); MEAN CORPUSCULAR VOLUME 90.5 FL (78-98); MEAN PLATELET VOLUME 8.5 FL (7.4-10.4); MONOCYTES # (AUTO) 1.8 X10'3 (0-0.9); MONOCYTES % (AUTO) 11.3 % (2-12); NEUTROPHILS # (AUTO) 10.2 X10'3 (1.8-7.7); NEUTROPHILS % (AUTO) 65.4 % (42-75); PLATELET COUNT 307 X10'3 (140-440); RED BLOOD COUNT 3.31 X10'6 (4.20-5.60); RED CELL DISTRIBUTION WIDTH 14.7 % (11.5-14.5); WHITE BLOOD COUNT 15.5 X10'3 (4.5-11.0)
--- NOTE | 2021-06-17 18:15 | NUR ---
Patient in room [facility]. I have received report from GRANT Pal and had the opportunity to ask questions and assume patient care.
--- NOTE | 2021-06-17 18:16 | NUR ---
Problems reprioritized. Patient report given, questions answered & plan of care reviewed with GRANT Beltran. Notified by audiovisual tech there is no one to draw so the nurse needds to draw heparin PTT
[2021-06-17 20:00] VITALS: BP 160/74
--- NOTE | 2021-06-17 22:57 | NUR ---
Changed dressing to right upper chest where port had been DC'd. Area is now scabbed over with no redness. There is a small bruise just under the scab that has formed.
[2021-06-18] VITALS: BP 198/119
[2021-06-18 01:30] VITALS: BP 136/76
[2021-06-18] MEDS: HYDROmorphone 1 mg/ml syringe IV PRN ×6 (02:25→23:41)
[2021-06-18] MEDS: ondansetron/PF 4mg/2ml inj IV PRN ×2 (02:25→19:50)
[2021-06-18] MEDS: heparin 25,000 UNIT/250ml bag 250 ML IV SCH ×2 (04:19→17:12)
--- NOTE | 2021-06-18 06:29 | NUR ---
Patient in room [facility]. I have received report from GRANT Boogie and had the opportunity to ask questions and assume patient care.
--- NOTE | 2021-06-18 06:29 | NUR ---
Problems reprioritized. Patient report given, questions answered & plan of care reviewed with GRANT Fritz.
[2021-06-18 07:00] VITALS: BP_SYST 110; BP_SYST 164; BP_DIAS 77; BP_DIAS 78
[2021-06-18] MEDS: LORazepam 1 MG tablet PO SCH (07:11)
[2021-06-18] MEDS: diphenhydrAMINE 25mg capsule PO SCH ×2 (07:11→19:51)
[2021-06-18] MEDS: lactobacillus rhamnosus 10,000 MMU CELLS/CAPSULE PO SCH ×2 (07:11→19:51)
[2021-06-18] MEDS: amLODIPine 5mg tablet PO SCH (07:11)
[2021-06-18] MEDS: pantoprazole 40mg Tablet.DR PO SCH (07:12)
[2021-06-18] MEDS: lisinopril 20mg tablet PO SCH (07:12)
[2021-06-18] MEDS ORDERED: VANCOMYCIN LEVEL IV ONE (07:30)
[2021-06-18] MEDS: lactose-reduced food (Ensure High Protein) 237ml bottle PO SCH ×2 (07:30→18:00)
[2021-06-18] MEDS: K and/or MAG REPLACEMENT MC SCH ×2 (08:00→19:38)
--- NOTE | 2021-06-18 08:15 | NUR ---
scrub tech stated unable to draw DVT PTT and will send for another scrub tech to try.
[2021-06-18] MEDS: normal saline 1000ml 1,000 ML IV SCH ×2 (09:39→19:49)
[2021-06-18] MEDS: vancomycin/NS 1 GM ADD-VANTAGE 250 ML X 1 DOSE IV SCH ×2 (09:42→19:51)
[2021-06-18 09:59] LABS: ALANINE AMINOTRANSFERASE 16 U/L (12-78); ALBUMIN 2.8 G/DL (3.4-5.0); ALBUMIN/GLOBULIN RATIO 0.7 (1.1-1.5); ALKALINE PHOSPHATASE 72 IU/L (46-116); ANION GAP 12 (8-16); ASPARTATE AMINO TRANSFERASE 11 U/L (10-37); BILIRUBIN,TOTAL 0.2 MG/DL (0.1-1.0); CALCIUM 8.6 MG/DL (8.5-10.1); CHLORIDE 106 MMOL/L (99-107); CREATININE 1.15 MG/DL (0.40-0.90); GLUCOSE 128 MG/DL (70-104); POTASSIUM 3.7 MMOL/L (3.5-5.1); SODIUM 140 MMOL/L (135-145); TOTAL CARBON DIOXIDE 22.4 MMOL/L (24-32); TOTAL PROTEIN 6.7 G/DL (6.4-8.2); VANCOMYCIN,TROUGH 16.3 UG/ML (6.0-14.0); eGFR 48 ML/MIN
[2021-06-18 10:03] LABS: BASOPHILS # (AUTO) 0.1 X10'3 (0-0.2); EOSINOPHILS # (AUTO) 0.6 X10'3 (0-0.9); EOSINOPHILS % (AUTO) 3.8 % (0-6); HEMATOCRIT 29.5 % (35.0-45.0); HEMOGLOBIN 9.7 g/dl (12.0-16.0); LYMPHOCYTES # (AUTO) 3.2 X10'3 (1.1-4.8); LYMPHOCYTES % (AUTO) 20.8 % (21-51); MEAN CORPUSCULAR HEMOGLOBIN 30.2 PG (27.0-31.0); MEAN CORPUSCULAR HGB CONC 32.9 g/dL (33.0-36.5); MEAN CORPUSCULAR VOLUME 91.6 FL (78-98); MEAN PLATELET VOLUME 9.5 FL (7.4-10.4); MONOCYTES # (AUTO) 1.9 X10'3 (0-0.9); MONOCYTES % (AUTO) 12.6 % (2-12); NEUTROPHILS # (AUTO) 9.5 X10'3 (1.8-7.7); NEUTROPHILS % (AUTO) 61.8 % (42-75); PLATELET COUNT 299 X10'3 (140-440); RED BLOOD COUNT 3.22 X10'6 (4.20-5.60); RED CELL DISTRIBUTION WIDTH 15.2 % (11.5-14.5); WHITE BLOOD COUNT 15.3 X10'3 (4.5-11.0)
[2021-06-18 10:36] LABS: BLOOD UREA NITROGEN 11 MG/DL (7-18); BUN/CREATININE RATIO 9.6 (6.6-38.0)
[2021-06-18 12:28] VITALS: BP 151/76
--- NOTE | 2021-06-18 15:01 | NUR ---
Dvt pTT still not available. Called lab spoke to Alicia let her know that lab is still not up and pending and she stated she will "look in to."
--- NOTE | 2021-06-18 15:24 | NUR ---
Spoke to Alicia from lab. Second company laborer was unsuccessful in getting dvt ptt as well. Will be sending another company laborer in to draw.
[2021-06-18] MEDS: ceFAZolin/D5W- 1GM premix 50 ML IV SCH ×2 (15:33→23:37)
--- NOTE | 2021-06-18 16:44 | NUR ---
DVT PTT 75. No changes to heparin rate per protocol.
[2021-06-18 18:00] VITALS: BP 175/99
--- NOTE | 2021-06-18 18:10 | NUR ---
Patient in room [facility]. I have received report from GRANT Fritz and had the opportunity to ask questions and assume patient care.
--- NOTE | 2021-06-18 18:29 | NUR ---
Problems reprioritized. Patient report given, questions answered & plan of care reviewed with GRANT Beltran.
[2021-06-19] VITALS: BP 181/92
[2021-06-19] MEDS: HYDROmorphone 1 mg/ml syringe IV PRN ×5 (04:05→20:06)
[2021-06-19] MEDS: normal saline 1000ml 1,000 ML IV SCH ×3 (04:20→16:07)
[2021-06-19 04:30] VITALS: BP 169/74
[2021-06-19] MEDS: heparin 25,000 UNIT/250ml bag 250 ML IV SCH ×3 (06:49→15:54)
--- NOTE | 2021-06-19 06:55 | NUR ---
Problems reprioritized. Patient report given, questions answered & plan of care reviewed with GRANT Brady.
--- NOTE | 2021-06-19 07:44 | NUR ---
Called lab to follow up result of DVT PTT that was supposed to be drawn at 05:30am, I spoke to Neha from lab and she said the snap shearer has not drawn it yet. I discussed with her my concern that patient on Heparin drip so we need the PTT result. She said she will let the snap shearer know. Primary nurse Caitlyn notified about this.
[2021-06-19 08:00] VITALS: BP_SYST 140; BP_SYST 178; BP_DIAS 58; BP_DIAS 71
[2021-06-19] MEDS: K and/or MAG REPLACEMENT MC SCH ×2 (08:00→19:19)
[2021-06-19] MEDS: lactobacillus rhamnosus 10,000 MMU CELLS/CAPSULE PO SCH ×2 (08:02→19:31)
[2021-06-19] MEDS: diphenhydrAMINE 25mg capsule PO SCH ×2 (08:02→19:32)
[2021-06-19] MEDS: amLODIPine 5mg tablet PO SCH (08:03)
[2021-06-19] MEDS: LORazepam 1 MG tablet PO SCH (08:04)
[2021-06-19] MEDS: pantoprazole 40mg Tablet.DR PO SCH (08:05)
[2021-06-19] MEDS: lisinopril 20mg tablet PO SCH (08:05)
[2021-06-19] MEDS: ondansetron/PF 4mg/2ml inj IV PRN ×2 (08:05→20:06)
[2021-06-19] MEDS: ceFAZolin/D5W- 1GM premix 50 ML IV SCH ×3 (08:06→23:13)
[2021-06-19] MEDS: lactose-reduced food (Ensure High Protein) 237ml bottle PO SCH ×2 (08:07→17:57)
[2021-06-19 08:20] LABS: BASOPHILS # (AUTO) 0.1 X10'3 (0-0.2); BASOPHILS % (AUTO) 0.6 % (0-1); EOSINOPHILS # (AUTO) 0.5 X10'3 (0-0.9); LYMPHOCYTES # (AUTO) 3.2 X10'3 (1.1-4.8); MEAN CORPUSCULAR HEMOGLOBIN 30.2 PG (27.0-31.0); MEAN CORPUSCULAR HGB CONC 33.3 g/dL (33.0-36.5); MEAN CORPUSCULAR VOLUME 90.5 FL (78-98); MEAN PLATELET VOLUME 8.5 FL (7.4-10.4); MONOCYTES # (AUTO) 2.2 X10'3 (0-0.9); MONOCYTES % (AUTO) 13.1 % (2-12); NEUTROPHILS # (AUTO) 10.7 X10'3 (1.8-7.7); NEUTROPHILS % (AUTO) 64.3 % (42-75); PLATELET COUNT 309 X10'3 (140-440); RED BLOOD COUNT 3.31 X10'6 (4.20-5.60); RED CELL DISTRIBUTION WIDTH 14.8 % (11.5-14.5); WHITE BLOOD COUNT 16.7 X10'3 (4.5-11.0)
[2021-06-19 08:41] LABS: ALANINE AMINOTRANSFERASE 16 U/L (12-78); ALBUMIN 2.8 G/DL (3.4-5.0); ALBUMIN/GLOBULIN RATIO 0.7 (1.1-1.5); ALKALINE PHOSPHATASE 68 IU/L (46-116); ANION GAP 12 (8-16); ASPARTATE AMINO TRANSFERASE 7 U/L (10-37); BILIRUBIN,TOTAL 0.4 MG/DL (0.1-1.0); BLOOD UREA NITROGEN 9 MG/DL (7-18); BUN/CREATININE RATIO 8.2 (6.6-38.0); CALCIUM 8.7 MG/DL (8.5-10.1); CHLORIDE 106 MMOL/L (99-107); GLUCOSE 98 MG/DL (70-104); POTASSIUM 3.6 MMOL/L (3.5-5.1); SODIUM 142 MMOL/L (135-145); TOTAL CARBON DIOXIDE 23.9 MMOL/L (24-32); TOTAL PROTEIN 6.6 G/DL (6.4-8.2); eGFR 51 ML/MIN
[2021-06-19] MEDS: vancomycin/NS 1 GM ADD-VANTAGE 250 ML X 1 DOSE IV SCH ×2 (09:59→19:30)
[2021-06-19 11:00] VITALS: BP_SYST 134; BP_SYST 167; BP_DIAS 56; BP_DIAS 75
--- NOTE | 2021-06-19 14:45 | NUR ---
Called lab about missing DVT PTT. Lab states techs are having difficulties drawing pt. but will f/u on orders.
[2021-06-19 16:09] VITALS: BP 143/78
--- NOTE | 2021-06-19 18:27 | NUR ---
Gave report to Vernon BURNS.
[2021-06-19 19:30] VITALS: BP 188/77
[2021-06-20 00:15] VITALS: BP 132/82
[2021-06-20] MEDS: HYDROmorphone 1 mg/ml syringe IV PRN ×6 (00:33→21:47)
[2021-06-20] MEDS: normal saline 1000ml 1,000 ML IV SCH ×2 (04:46→16:42)
[2021-06-20] MEDS: ondansetron/PF 4mg/2ml inj IV PRN ×2 (04:46→21:46)
[2021-06-20 07:00] VITALS: BP 135/75
[2021-06-20 07:05] LABS: BASOPHILS # (AUTO) 0.1 X10'3 (0-0.2); BASOPHILS % (AUTO) 0.7 % (0-1); EOSINOPHILS # (AUTO) 0.4 X10'3 (0-0.9); EOSINOPHILS % (AUTO) 3.2 % (0-6); HEMATOCRIT 28.5 % (35.0-45.0); HEMOGLOBIN 9.6 g/dl (12.0-16.0); LYMPHOCYTES # (AUTO) 1.1 X10'3 (1.1-4.8); LYMPHOCYTES % (AUTO) 9.4 % (21-51); MEAN CORPUSCULAR HEMOGLOBIN 30.3 PG (27.0-31.0); MEAN CORPUSCULAR HGB CONC 33.8 g/dL (33.0-36.5); MEAN CORPUSCULAR VOLUME 89.5 FL (78-98); MEAN PLATELET VOLUME 8.8 FL (7.4-10.4); MONOCYTES # (AUTO) 1.7 X10'3 (0-0.9); MONOCYTES % (AUTO) 13.9 % (2-12); NEUTROPHILS # (AUTO) 8.8 X10'3 (1.8-7.7); NEUTROPHILS % (AUTO) 72.8 % (42-75); PLATELET COUNT 284 X10'3 (140-440); RED BLOOD COUNT 3.18 X10'6 (4.20-5.60); RED CELL DISTRIBUTION WIDTH 14.7 % (11.5-14.5); WHITE BLOOD COUNT 12.1 X10'3 (4.5-11.0)
--- NOTE | 2021-06-20 07:14 | NUR ---
Patient in room [facility]. I have received report from Vernon BURNS and had the opportunity to ask questions and assume patient care.
[2021-06-20 07:36] LABS: ALANINE AMINOTRANSFERASE 17 U/L (12-78); ALBUMIN 2.8 G/DL (3.4-5.0); ALBUMIN/GLOBULIN RATIO 0.7 (1.1-1.5); ALKALINE PHOSPHATASE 69 IU/L (46-116); ANION GAP 13 (8-16); ASPARTATE AMINO TRANSFERASE 10 U/L (10-37); BILIRUBIN,TOTAL 0.3 MG/DL (0.1-1.0); BLOOD UREA NITROGEN 9 MG/DL (7-18); BUN/CREATININE RATIO 7.6 (6.6-38.0); CALCIUM 8.7 MG/DL (8.5-10.1); CHLORIDE 106 MMOL/L (99-107); CREATININE 1.19 MG/DL (0.40-0.90); GLUCOSE 124 MG/DL (70-104); POTASSIUM 3.4 MMOL/L (3.5-5.1); SODIUM 141 MMOL/L (135-145); TOTAL PROTEIN 6.6 G/DL (6.4-8.2); eGFR 46 ML/MIN
[2021-06-20] MEDS: K and/or MAG REPLACEMENT MC SCH ×2 (08:00→19:15)
[2021-06-20] MEDS: diphenhydrAMINE 25mg capsule PO SCH ×2 (08:20→19:31)
[2021-06-20] MEDS: lactobacillus rhamnosus 10,000 MMU CELLS/CAPSULE PO SCH ×2 (08:20→19:32)
[2021-06-20] MEDS: ceFAZolin/D5W- 1GM premix 50 ML IV SCH ×2 (08:20→16:39)
[2021-06-20] MEDS: pantoprazole 40mg Tablet.DR PO SCH (08:20)
[2021-06-20] MEDS: lisinopril 20mg tablet PO SCH (08:21)
[2021-06-20] MEDS: LORazepam 1 MG tablet PO SCH (08:21)
[2021-06-20] MEDS: amLODIPine 5mg tablet PO SCH (08:21)
[2021-06-20] MEDS: lactose-reduced food (Ensure High Protein) 237ml bottle PO SCH ×2 (08:25→17:39)
[2021-06-20] MEDS: vancomycin/NS 1 GM ADD-VANTAGE 250 ML X 1 DOSE IV SCH ×2 (09:32→19:31)
--- NOTE | 2021-06-20 10:04 | NUR ---
Reassessment: PO intake has improved some, mostly 75% of meals on Regular diet though will sometimes refuse a meal. Additional 30% x 5 ONS likely meeting estimated nutrient needs at this time. Pt noted to complain of some abdominal pain. LBM 06/19. No new nutrition intervention implemented at this time, will continue to monitor. Recs: 1. Continue Regular diet as tolerated 2. Ensure High Protein BID 3. Bowel care per rx 4. Weekly wts Addendum: 06/20/21 at [address] Amended: Links added.
--- NOTE | 2021-06-20 10:51 | NUR ---
patient painful on assessment, did not want norco stated she would wait for dilaudid shot. Dilaudid given with good effect. will continue to monitor
[2021-06-20 11:00] VITALS: BP 140/83
--- NOTE | 2021-06-20 18:24 | NUR ---
patient stated she would agree to having dilaudid IV and norco PO staggered as IV dilaudid not lasting 4hrs.Dr dodd aware. Is for placement of Portacath per dr Dodd in am. NPO after midnight. ambulating in hallway. report given to stacie BURNS
[2021-06-20] MEDS: HYDROcodone/acetaminophen 10/325mg tab PO PRN (19:32)
[2021-06-20 20:00] VITALS: BP 151/78
[2021-06-21] VITALS: BP 160/79
[2021-06-21] MEDS: HYDROcodone/acetaminophen 10/325mg tab PO PRN ×3 (00:01→16:53)
[2021-06-21] MEDS: ceFAZolin/D5W- 1GM premix 50 ML IV SCH ×2 (00:24→07:32)
[2021-06-21] MEDS: HYDROmorphone 1 mg/ml syringe IV PRN ×5 (02:07→18:01)
[2021-06-21] MEDS: normal saline 1000ml 1,000 ML IV SCH (05:40)
[2021-06-21] MEDS: ondansetron/PF 4mg/2ml inj IV PRN ×2 (05:56→12:57)
--- NOTE | 2021-06-21 06:22 | NUR ---
Problems reprioritized. Patient report given, questions answered & plan of care reviewed with GRANT Beltrán.
--- NOTE | 2021-06-21 06:24 | NUR ---
Patient in room [facility]. I have received report from Chuyita BURNS and had the opportunity to ask questions and assume patient care.
--- NOTE | 2021-06-21 06:56 | NUR ---
Received report from Leigh Ann BURNS.
[2021-06-21 07:00] VITALS: BP 152/76
[2021-06-21] MEDS: lactose-reduced food (Ensure High Protein) 237ml bottle PO SCH (07:30)
[2021-06-21] MEDS: diphenhydrAMINE 25mg capsule PO SCH (07:31)
[2021-06-21] MEDS: LORazepam 1 MG tablet PO SCH (07:31)
[2021-06-21] MEDS: amLODIPine 5mg tablet PO SCH (07:31)
[2021-06-21] MEDS: lactobacillus rhamnosus 10,000 MMU CELLS/CAPSULE PO SCH (07:31)
[2021-06-21] MEDS: lisinopril 20mg tablet PO SCH (07:32)
[2021-06-21] MEDS: pantoprazole 40mg Tablet.DR PO SCH (07:32)
[2021-06-21 08:00] VITALS: BP 152/76
[2021-06-21] MEDS: K and/or MAG REPLACEMENT MC SCH (08:00)
[2021-06-21] MEDS: vancomycin/NS 1 GM ADD-VANTAGE 250 ML X 1 DOSE IV SCH (08:27)
[2021-06-21 08:35] LABS: PARTIAL THROMBOPLASTIN TIME 26 SECONDS (22-32)
[2021-06-21 08:53] LABS: ALANINE AMINOTRANSFERASE 16 U/L (12-78); ALBUMIN 2.7 G/DL (3.4-5.0); ALBUMIN/GLOBULIN RATIO 0.7 (1.1-1.5); ALKALINE PHOSPHATASE 67 IU/L (46-116); ANION GAP 13 (8-16); ASPARTATE AMINO TRANSFERASE 19 U/L (10-37); BILIRUBIN,TOTAL 0.2 MG/DL (0.1-1.0); BLOOD UREA NITROGEN 14 MG/DL (7-18); BUN/CREATININE RATIO 13.9 (6.6-38.0); CALCIUM 8.7 MG/DL (8.5-10.1); CHLORIDE 107 MMOL/L (99-107); CREATININE 1.01 MG/DL (0.40-0.90); GLUCOSE 87 MG/DL (70-104); SODIUM 141 MMOL/L (135-145); TOTAL PROTEIN 6.7 G/DL (6.4-8.2); eGFR 56 ML/MIN
[2021-06-21 08:57] LABS: BASOPHILS % (AUTO) 0.4 % (0-1); EOSINOPHILS # (AUTO) 0.3 X10'3 (0-0.9); EOSINOPHILS % (AUTO) 3.4 % (0-6); HEMATOCRIT 28.8 % (35.0-45.0); HEMOGLOBIN 9.7 g/dl (12.0-16.0); LYMPHOCYTES # (AUTO) 1.8 X10'3 (1.1-4.8); LYMPHOCYTES % (AUTO) 19.8 % (21-51); MEAN CORPUSCULAR HEMOGLOBIN 30.2 PG (27.0-31.0); MEAN CORPUSCULAR HGB CONC 33.7 g/dL (33.0-36.5); MEAN CORPUSCULAR VOLUME 89.8 FL (78-98); MEAN PLATELET VOLUME 8.9 FL (7.4-10.4); MONOCYTES # (AUTO) 1.6 X10'3 (0-0.9); MONOCYTES % (AUTO) 17.9 % (2-12); NEUTROPHILS # (AUTO) 5.4 X10'3 (1.8-7.7); NEUTROPHILS % (AUTO) 58.5 % (42-75); PLATELET COUNT 259 X10'3 (140-440); RED BLOOD COUNT 3.21 X10'6 (4.20-5.60); RED CELL DISTRIBUTION WIDTH 14.7 % (11.5-14.5); WHITE BLOOD COUNT 9.2 X10'3 (4.5-11.0)
[2021-06-21 08:58] LABS: POTASSIUM 3.8 MMOL/L (3.5-5.1)
[2021-06-21] MEDS ORDERED: aspirin 81mg tab.chew PO SCH (09:40)
[2021-06-21] MEDS ORDERED: LINE600T11 PO (10:03)
[2021-06-21] MEDS ORDERED: ASPI-1 PO ×2 (10:03)
[2021-06-21 11:00] VITALS: BP 156/78
[2021-06-21 13:03] LABS: LARGE PLATELETS FEW; PLATELET ESTIMATE NORMAL; TOTAL CELLS COUNTED 100
--- NOTE | 2021-06-21 15:46 | NUR ---
patient became very upset when told that she was having a PICC line placed instead of Portacath due to previous infection caused by Portacath. patient stated that she was very afraid of getting blood clots due to prior history, but consented to have PICC placed so she can carry on her IV med regime at home due to hx of gastroparesis. SEe Angio note, DR matamoros aware also. Patient efused to have PO pain meds insisting on waiting q4hrly for Dilaudid IV. Much education given to patient with regards use of staggering meds to ensure coverage for pain.will continue to monitor. PICC RN in room at this time
[2021-06-21] MEDS ORDERED: ENOX40SY7 SQ ×2 (16:55)
--- NOTE | 2021-06-21 17:59 | NUR ---
Dr matamoros in to see patient. Lovenox added to discharge meds. patient tolerated placement of PICC. All Dc instructions given to patient. patient awaiting ride home
== END 2021-06-21 18:09 | disposition home health service (06) | DRG 872 ==
LOC: ER 10:01 → ED HOLD 20:23 → SUR 3N 06-11 19:18
PROVIDERS: ADMIT Internal Medicine; ATTEND Internal Medicine
PROC: 02HV33Z Insertion of Infusion Device into Superior Vena Cava, Percutaneous Approach (ICD-10-PCS; principal; 2021-06-21)
PROC: B548ZZA Ultrasonography of Superior Vena Cava, Guidance (ICD-10-PCS; 2021-06-21)
DX: A41.2 Sepsis due to unspecified staphylococcus (principal); L03.113 Cellulitis of right upper limb; I82.611 Acute embolism and thrombosis of superficial veins of right upper extremity; D64.9 Anemia, unspecified; K31.84 Gastroparesis; G89.4 Chronic pain syndrome; N61.0 Mastitis without abscess; Y84.8 Other medical procedures as the cause of abnormal reaction of the patient, or of later complication, without mention of misadventure at the time of the procedure; F12.90 Cannabis use, unspecified, uncomplicated; M25.511 Pain in right shoulder; E66.01 Morbid (severe) obesity due to excess calories; I12.9 Hypertensive chronic kidney disease with stage 1 through stage 4 chronic kidney disease, or unspecified chronic kidney disease; I80.8 Phlebitis and thrombophlebitis of other sites; N18.9 Chronic kidney disease, unspecified; Z68.39 Body mass index [BMI] 39.0-39.9, adult; Y92.89 Other specified places as the place of occurrence of the external cause; Z88.2 Allergy status to sulfonamides; Z88.8 Allergy status to other drugs, medicaments and biological substances; Z90.49 Acquired absence of other specified parts of digestive tract
CPT/HCPCS: 36415; 36573; 73200; 76882; 80053; 80202; 81001; 83605; 83735; 84132; 84145; 85007; 85025; 85610; 85651; 85730; 87040; 87077; 87081; 87088; 87186; 93971; 96372; 96374; 96375; 99285; G0378; J0690; J1170; J1200; J1644; J1650; J2270; J2405; J3370; J7030; Q0163

== ENCOUNTER 2021-06-27 17:32 | Emergency (ER) | payer MEDICARE, MEDICAID ==
[~2021-06-27] VITALS: Ht 160 cm; Wt 100.6 kg
[~2021-06-27 17:32] MED LIST changes: +ASPI-1 PO; +DIPH25CA83 PO; +DOMPERIDONE; +ENOX40SY7 SQ; +LORA-269 PO
[2021-06-27] MEDS ORDERED: vancomycin/NS 1 GM ADD-VANTAGE 250 ML IV ONE (17:35)
[2021-06-27] MEDS ORDERED: piperacillin/tazo 3.375gm/50ml 50 ML IV ONE (17:35)
[2021-06-27] MEDS ORDERED: acetaminophen 325mg tablet PO STA (17:35)
[2021-06-27] MEDS ORDERED: normal saline 1000ML IV soln IV ONE (17:35)
[2021-06-27] MEDS ORDERED: ENOX40DI11 SQ (17:54)
[2021-06-27] MEDS ORDERED: DICY20TA17 PO (17:54)
[2021-06-27] MEDS ORDERED: ASPI-1264 PO (17:54)
[2021-06-27] MEDS ORDERED: ondansetron/PF 4mg/2ml inj IV ONE (18:10)
[2021-06-27] MEDS: morphine 4 MG/ML inj SYRINge IV PRN ×2 (18:26→18:53)
[2021-06-27 18:52] LABS: BASOPHILS % (AUTO) 0.7 % (0-1); EOSINOPHILS % (AUTO) 0.6 % (0-6); HEMATOCRIT 35.8 % (35.0-45.0); HEMOGLOBIN 11.8 g/dl (12.0-16.0); LYMPHOCYTES # (AUTO) 2.5 X10'3 (1.1-4.8); LYMPHOCYTES % (AUTO) 61.5 % (21-51); MEAN CORPUSCULAR HEMOGLOBIN 29.2 PG (27.0-31.0); MEAN CORPUSCULAR VOLUME 88.5 FL (78-98); MONOCYTES # (AUTO) 0.6 X10'3 (0-0.9); MONOCYTES % (AUTO) 14.1 % (2-12); NEUTROPHILS # (AUTO) 0.9 X10'3 (1.8-7.7); NEUTROPHILS % (AUTO) 23.1 % (42-75); PLATELET COUNT 170 X10'3 (140-440); RED BLOOD COUNT 4.04 X10'6 (4.20-5.60); RED CELL DISTRIBUTION WIDTH 14.5 % (11.5-14.5); WHITE BLOOD COUNT 4.1 X10'3 (4.5-11.0)
[2021-06-27 19:06] LABS: ALANINE AMINOTRANSFERASE 45 U/L (12-78); ALBUMIN 3.2 G/DL (3.4-5.0); ALBUMIN/GLOBULIN RATIO 0.8 (1.1-1.5); ALKALINE PHOSPHATASE 78 IU/L (46-116); ANION GAP 12 (8-16); ASPARTATE AMINO TRANSFERASE 47 U/L (10-37); BILIRUBIN,TOTAL 0.2 MG/DL (0.1-1.0); BLOOD UREA NITROGEN 14 MG/DL (7-18); BUN/CREATININE RATIO 10.6 (6.6-38.0); CALCIUM 8.8 MG/DL (8.5-10.1); CHLORIDE 106 MMOL/L (99-107); CREATININE 1.32 MG/DL (0.40-0.90); GLUCOSE 84 MG/DL (70-104); MAGNESIUM 1.5 MG/DL (1.5-2.4); POTASSIUM 3.8 MMOL/L (3.5-5.1); SODIUM 139 MMOL/L (135-145); TOTAL CARBON DIOXIDE 21.5 MMOL/L (24-32); TOTAL PROTEIN 7.2 G/DL (6.4-8.2); eGFR 41 ML/MIN
[2021-06-27] MEDS ORDERED: proCHLORperazine 10 MG/2 ml inj IV ONE (20:40)
[2021-06-27] MEDS ORDERED: morphine 4 MG/ML inj SYRINge IV ONE (20:40)
[2021-06-27] MEDS ORDERED: CASIRIVIMAB/IMDEVIMAB inject. 10 ML in normal saline 100ml IV soln 100 ML IV ONE (21:00)
[2021-06-27 21:25] LABS: CLARITY,URINE CLEAR (Clear); COLOR,URINE YELLOW (Yellow); GLUCOSE, URINE NEGATIVE (Neg); KETONES,URINE NEGATIVE (Neg); PROTEIN,URINE 30 mg/dl (Neg); UA COLLECTION TYPE STRAIGHT CATH
[2021-06-27 21:26] LABS: LEUKOCYTE ESTERASE ,URINE NEGATIVE (Neg); NITRITES, URINE NEGATIVE (Neg); OCCULT BLOOD,URINE NEGATIVE (Neg); UROBILINOGEN,URINE 0.2 E.U/dL (0.2-1.0)
[2021-06-27 21:28] LABS: RBC,URINE 0-2 /HPF (0-2); WBC,URINE 0-4 /HPF (0-4)
[2021-06-27 21:30] LABS: AMORPHOUS URATES 1+; BACTERIA,URINE NONE SEEN /HPF (Neg); MUCUS STRANDS MODERATE /LPF (Neg); SQUAMOUS EPITHELIAL CELL,UR NONE SEEN /LPF (FEW)
[2021-06-27 22:01] VITALS: BP 112/72
[2021-06-27 22:46] LABS: PLATELET ESTIMATE NORMAL; TOTAL CELLS COUNTED 100
== END 2021-06-27 22:30 | disposition left against medical advice (07) ==
LOC: ER 17:32
DX: U07.1 COVID-19 (principal); R42 Dizziness and giddiness; R10.10 Upper abdominal pain, unspecified; I10 Essential (primary) hypertension; F12.90 Cannabis use, unspecified, uncomplicated; G89.29 Other chronic pain; Z90.49 Acquired absence of other specified parts of digestive tract; Z88.2 Allergy status to sulfonamides; Z88.8 Allergy status to other drugs, medicaments and biological substances; Z79.82 Long term (current) use of aspirin; Z79.899 Other long term (current) drug therapy
CPT/HCPCS: 36415; 71045; 80053; 81001; 83605; 83735; 84145; 85007; 85025; 87040; 87635; 93005; 96365; 96366; 96368; 96375; 96376; 99285; C9803; J0780; J2270; J2405; J2543; J3370; J7030

== ENCOUNTER 2021-07-12 19:48 | Emergency (ER) | payer MEDICARE, MEDICAID ==
[~2021-07-12] VITALS: Ht 160 cm; Wt 100.0 kg
[~2021-07-12 19:48] MED LIST changes: -ASPI-1 PO; +ASPI-1264 PO; +DICY20TA17 PO; -DIPH25CA83 PO; -DOMPERIDONE; +ENOX40DI11 SQ; -ENOX40SY7 SQ; -ONDA8TAB13 PO
[2021-07-12 20:11] VITALS: BP 124/90
[2021-07-12] MEDS ORDERED: diphenhydrAMINE 50 mg/ml inj IM ONE (23:35)
[2021-07-13] MEDS ORDERED: DIPH25CA83 PO (01:27)
--- NOTE | 2021-07-13 01:34 | NUR ---
attempted to flush pt picc line. still occluded, dr almanza aware.
== END 2021-07-13 01:35 | disposition home or self-care (01) ==
LOC: ER 19:49
DX: K31.84 Gastroparesis (principal); I10 Essential (primary) hypertension; G89.29 Other chronic pain; E11.9 Type 2 diabetes mellitus without complications; F12.90 Cannabis use, unspecified, uncomplicated; Z88.2 Allergy status to sulfonamides; Z88.8 Allergy status to other drugs, medicaments and biological substances; Z79.82 Long term (current) use of aspirin; Z79.899 Other long term (current) drug therapy
CPT/HCPCS: 96372; 99283; J1200

== ENCOUNTER 2021-08-30 17:50 | Emergency (ER) | payer MEDICARE, MEDICAID ==
[~2021-08-30] VITALS: Ht 160 cm; Wt 90.0 kg
[~2021-08-30 17:50] MED LIST changes: +DIPH25CA83 PO
[2021-08-30] MEDS ORDERED: diphenhydrAMINE 50 mg/ml inj IV ONE (22:30)
[2021-08-30] MEDS ORDERED: LORazepam 2 mg/ml vial IV ONE (22:30)
[2021-08-30] MEDS ORDERED: metoclopramide 5 mg/ml inj IV ONE (22:30)
[2021-08-30 23:09] LABS: BASOPHILS # (AUTO) 0.2 X10'3 (0-0.2); EOSINOPHILS # (AUTO) 0.6 X10'3 (0-0.9); HEMATOCRIT 36.8 % (35.0-45.0); LYMPHOCYTES % (AUTO) 41.2 % (21-51); MEAN CORPUSCULAR HEMOGLOBIN 28.7 PG (27.0-31.0); MEAN CORPUSCULAR HGB CONC 32.7 g/dL (33.0-36.5); MEAN CORPUSCULAR VOLUME 87.7 FL (78-98); MEAN PLATELET VOLUME 8.8 FL (7.4-10.4); MONOCYTES # (AUTO) 1.2 X10'3 (0-0.9); MONOCYTES % (AUTO) 12.1 % (2-12); NEUTROPHILS # (AUTO) 3.8 X10'3 (1.8-7.7); NEUTROPHILS % (AUTO) 38.7 % (42-75); PLATELET COUNT 298 X10'3 (140-440); RED BLOOD COUNT 4.19 X10'6 (4.20-5.60); RED CELL DISTRIBUTION WIDTH 15.3 % (11.5-14.5); WHITE BLOOD COUNT 9.8 X10'3 (4.5-11.0)
[2021-08-30 23:22] LABS: ALBUMIN 3.6 G/DL (3.4-5.0); ANION GAP 11 (8-16); BLOOD UREA NITROGEN 25 MG/DL (7-18); BUN/CREATININE RATIO 13.7 (6.6-38.0); CALCIUM 9.2 MG/DL (8.5-10.1); CHLORIDE 103 MMOL/L (99-107); CREATININE 1.83 MG/DL (0.40-0.90); GLUCOSE 90 MG/DL (70-104); POTASSIUM 4.1 MMOL/L (3.5-5.1); SODIUM 140 MMOL/L (135-145); TOTAL CARBON DIOXIDE 25.9 MMOL/L (24-32); eGFR 28 ML/MIN
[2021-08-31 06:29] LABS: ALANINE AMINOTRANSFERASE 31 U/L (12-78); ALBUMIN/GLOBULIN RATIO 0.9 (1.1-1.5); ALKALINE PHOSPHATASE 82 IU/L (46-116); ASPARTATE AMINO TRANSFERASE 27 U/L (10-37); BILIRUBIN,DIRECT 0.1 MG/DL (0-0.3); BILIRUBIN,TOTAL 0.3 MG/DL (0.1-1.0); LIPASE 135 U/L (73-393); TOTAL PROTEIN 7.5 G/DL (6.4-8.2)
[2021-08-31 06:58] VITALS: BP 139/90
== END 2021-08-31 07:02 | disposition home or self-care (01) ==
LOC: ER 17:51
DX: R10.9 Unspecified abdominal pain (principal); M79.631 Pain in right forearm; I10 Essential (primary) hypertension; G89.29 Other chronic pain; F12.10 Cannabis abuse, uncomplicated; Z88.2 Allergy status to sulfonamides; Z79.899 Other long term (current) drug therapy
CPT/HCPCS: 36415; 80048; 80076; 83690; 85025; 85610; 93971; 96374; 96375; 99284; J1200; J2060; J2765; 85730

== ENCOUNTER 2022-02-16 21:43 | Emergency (ER) | payer MEDICARE, MEDICAID ==
[~2022-02-16] VITALS: Ht 160 cm; Wt 90.9 kg
[~2022-02-16 21:43] MED LIST changes: -OMEP-50 PO; +OMEP20CA16 PO
[2022-02-16] MEDS ORDERED: HYDROcodone/acetaminophen 5mg/325mg tablet PO ONE (22:45)
[2022-02-16] MEDS ORDERED: ondansetron 4mg rapidly disintigrating tab PO ONE (22:45)
[2022-02-17] MEDS ORDERED: morphine 4 MG/ML inj SYRINge IM ONE (00:30)
[2022-02-17 00:50] VITALS: BP 148/85
== END 2022-02-17 00:56 | disposition home or self-care (01) ==
LOC: ER 21:44
DX: M25.561 Pain in right knee (principal); I10 Essential (primary) hypertension; G89.29 Other chronic pain; F12.90 Cannabis use, unspecified, uncomplicated; Z86.718 Personal history of other venous thrombosis and embolism; Z88.2 Allergy status to sulfonamides; Z88.8 Allergy status to other drugs, medicaments and biological substances; Z79.82 Long term (current) use of aspirin
CPT/HCPCS: 29505; 93971; 96372; 99284; J2270; 29515

== ENCOUNTER 2023-03-09 12:10 | Emergency (ER) | payer MEDICARE, MEDICAID ==
[~2023-03-09] VITALS: Ht 160 cm; Wt 90.9 kg
[2023-03-09 12:34] VITALS: BP 157/83
[2023-03-09] MEDS ORDERED: orphenadrine citrate 60mg/2ml inj. IM ONE (13:15)
== END 2023-03-09 14:17 | disposition home or self-care (01) ==
LOC: ER 12:10
DX: M25.561 Pain in right knee (principal); M25.562 Pain in left knee; W19.XXXA Unspecified fall, initial encounter; Y93.89 Activity, other specified; Y92.89 Other specified places as the place of occurrence of the external cause; Y99.8 Other external cause status
CPT/HCPCS: 73564; 96372; 99284; J2360

== ENCOUNTER 2023-03-17 23:13 | Emergency (ER) | payer MEDICARE, MEDICAID ==
[~2023-03-17] VITALS: Ht 160 cm; Wt 90.9 kg
[2023-03-17 23:18] VITALS: BP 154/85
== END 2023-03-18 00:09 | disposition home or self-care (01) ==
LOC: ER 23:14
DX: Z48.01 Encounter for change or removal of surgical wound dressing (principal); R11.10 Vomiting, unspecified; I10 Essential (primary) hypertension; G89.29 Other chronic pain; F12.90 Cannabis use, unspecified, uncomplicated; Z86.718 Personal history of other venous thrombosis and embolism; Z90.49 Acquired absence of other specified parts of digestive tract; Z79.899 Other long term (current) drug therapy; Z88.2 Allergy status to sulfonamides; Z88.8 Allergy status to other drugs, medicaments and biological substances; Z79.82 Long term (current) use of aspirin; Z87.19 Personal history of other diseases of the digestive system
CPT/HCPCS: 99281; A6258; A6449

== ENCOUNTER 2023-09-14 15:24 | Emergency (ER) | payer MEDICARE, MEDICAID ==
[~2023-09-14] VITALS: Ht 160 cm; Wt 90.9 kg
[2023-09-14] MEDS ORDERED: morphine 10mg/ml inj. IM ONE (15:55)
[2023-09-14] MEDS ORDERED: ondansetron 4mg rapidly disintigrating tab PO ONE (15:55)
[2023-09-14] MEDS ORDERED: HYDR-3965 PO (17:07)
[2023-09-14] MEDS ORDERED: HYDROmorphone inj. 0.5 MG/0.5 ML DISP.SYRIN IV ONE (17:20)
[2023-09-14 18:10] VITALS: BP 180/104; PULSE 96; RESP 20; TEMP 98.3; O2SAT 100
== END 2023-09-14 18:17 | disposition home or self-care (01) ==
LOC: ER 15:24
DX: S42.252A Displaced fracture of greater tuberosity of left humerus, initial encounter for closed fracture (principal); W18.39XA Other fall on same level, initial encounter; Y93.89 Activity, other specified; Y92.89 Other specified places as the place of occurrence of the external cause; Y99.8 Other external cause status
CPT/HCPCS: 73030; 96372; 96374; 99284; J1170; J2274; A4565

== ENCOUNTER 2024-06-01 15:34 | Emergency (ER) | payer MEDICARE, MEDICAID ==
[~2024-06-01] VITALS: Ht 160 cm; Wt 90.9 kg
[2024-06-01 16:26] VITALS: TEMP 97.9
[2024-06-01 16:33] LABS: BILIRUBIN,URINE NEGATIVE (Neg); CLARITY,URINE CLEAR (Clear); COLOR,URINE YELLOW (Yellow); GLUCOSE, URINE NEGATIVE (Neg); KETONES,URINE TRACE mg/dl (Neg); LEUKOCYTE ESTERASE ,URINE NEGATIVE (Neg); NITRITES, URINE NEGATIVE (Neg); OCCULT BLOOD,URINE NEGATIVE (Neg); PH,URINE 6.5 (4.8-8.0); PROTEIN,URINE TRACE mg/dl (Neg); UROBILINOGEN,URINE 0.2 E.U/dL (0.2-1.0)
[2024-06-01 16:38] LABS: UA COLLECTION TYPE CLN CATCH MIDSTREAM
[2024-06-01 16:39] LABS: BACTERIA,URINE FEW /HPF (Neg); MUCUS STRANDS NONE SEEN /LPF (Neg); RBC,URINE NONE SEEN /HPF (0-2); SQUAMOUS EPITHELIAL CELL,UR MANY /LPF (FEW); WBC,URINE 0-4 /HPF (0-4)
[2024-06-01 16:44] LABS: BASOPHILS # (AUTO) 0.2 X10'3 (0-0.2); BASOPHILS % (AUTO) 1.1 % (0-1); EOSINOPHILS # (AUTO) 0.4 X10'3 (0-0.9); EOSINOPHILS % (AUTO) 2.8 % (0-6); HEMOGLOBIN 12.3 g/dl (12.0-16.0); LYMPHOCYTES # (AUTO) 3.8 X10'3 (1.1-4.8); LYMPHOCYTES % (AUTO) 27.7 % (21-51); MEAN CORPUSCULAR HEMOGLOBIN 29.5 PG (27.0-31.0); MEAN CORPUSCULAR HGB CONC 32.4 g/dL (33.0-36.5); MONOCYTES # (AUTO) 1.6 X10'3 (0-0.9); MONOCYTES % (AUTO) 11.7 % (2-12); NEUTROPHILS # (AUTO) 7.7 X10'3 (1.8-7.7); NEUTROPHILS % (AUTO) 56.7 % (42-75); PLATELET COUNT 334 X10'3 (140-440); RED BLOOD COUNT 4.17 X10'6 (4.20-5.60); WHITE BLOOD COUNT 13.6 X10'3 (4.5-11.0)
[2024-06-01 16:58] LABS: ALANINE AMINOTRANSFERASE 17 U/L (12-78); ALBUMIN 3.2 G/DL (3.4-5.0); ALBUMIN/GLOBULIN RATIO 0.8 (1.1-1.5); ALKALINE PHOSPHATASE 82 IU/L (46-116); ANION GAP 7 (8-16); ASPARTATE AMINO TRANSFERASE 11 U/L (10-37); BILIRUBIN,TOTAL 0.5 MG/DL (0.1-1.0); BLOOD UREA NITROGEN 15 MG/DL (7-18); BUN/CREATININE RATIO 11.9 (10.0-20.0); CALCIUM 9.2 MG/DL (8.5-10.1); CHLORIDE 103 MMOL/L (99-107); CREATININE 1.26 MG/DL (0.40-0.90); GLUCOSE 111 MG/DL (70-104); LIPASE 25 U/L (16-77); POTASSIUM 3.7 MMOL/L (3.5-5.1); SODIUM 140 MMOL/L (135-145); TOTAL CARBON DIOXIDE 30.4 MMOL/L (24-32); TOTAL PROTEIN 7.3 G/DL (6.4-8.2); eCRCL 38 ML/MIN; eGFR 43 ML/MIN
[2024-06-01] MEDS ORDERED: PRED20TA PO ×2 (18:33→19:25)
[2024-06-01] MEDS ORDERED: AMOX-115 PO (18:34)
[2024-06-01] MEDS: prednisone 10mg tablet PO ONE (18:44)
[2024-06-01] MEDS ORDERED: HYDR-3972 PO (19:25)
[2024-06-01] MEDS ORDERED: METH-798 PO (19:25)
[2024-06-01] MEDS ORDERED: LEVO-65 PO (19:25)
[2024-06-01] MEDS ORDERED: METR-159 PO (19:25)
[2024-06-01] MEDS: HYDROmorphone 1 mg/ml syringe IV ONE (19:38)
[2024-06-01] MEDS: ondansetron 4mg rapidly disintigrating tab PO ONE (19:38)
[2024-06-01] MEDS: ketorolac trometh 15mg/ml vial 15 MG/ML ML IV ONE (19:38)
[2024-06-01 19:47] VITALS: BP 133/69; PULSE 84; RESP 15; O2SAT 94
[2024-06-01] MEDS: heparin sodium, porcine/PF 100unit/ml 5ML syringe IV STA (20:10)
== END 2024-06-01 20:16 | disposition home or self-care (01) ==
LOC: ER 15:35
DX: K52.89 Other specified noninfective gastroenteritis and colitis (principal); M54.50 Low back pain, unspecified; R10.84 Generalized abdominal pain; F12.90 Cannabis use, unspecified, uncomplicated; I10 Essential (primary) hypertension; G89.29 Other chronic pain; E11.43 Type 2 diabetes mellitus with diabetic autonomic (poly)neuropathy; K31.84 Gastroparesis; Z88.2 Allergy status to sulfonamides; Z88.8 Allergy status to other drugs, medicaments and biological substances; Z79.899 Other long term (current) drug therapy; Z79.82 Long term (current) use of aspirin; Z79.52 Long term (current) use of systemic steroids; Z90.49 Acquired absence of other specified parts of digestive tract; Z86.718 Personal history of other venous thrombosis and embolism
CPT/HCPCS: 36415; 71045; 74176; 80053; 81001; 83690; 84145; 85025; 96374; 96375; 99285; J1170; J1642; J1885; J7512; Z7610

== ENCOUNTER 2024-06-05 14:24 | Inpatient (IN) | payer MEDICARE, MEDICAID ==
[~2024-06-05] VITALS: Ht 160 cm; Wt 89.0 kg
[~2024-06-05 14:24] MED LIST changes: +HYDR-3972 PO; +LEVO-65 PO; +METH-798 PO; +METR-159 PO; +PRED20TA PO
[2024-06-05 15:22] LABS: URINE HCG NEGATIVE (NEG)
[2024-06-05 15:24] LABS: BILIRUBIN,URINE NEGATIVE (Neg); CLARITY,URINE CLOUDY (Clear); COLOR,URINE YELLOW (Yellow); GLUCOSE, URINE 100 mg/dl (Neg); KETONES,URINE TRACE mg/dl (Neg); LEUKOCYTE ESTERASE ,URINE NEGATIVE (Neg); NITRITES, URINE NEGATIVE (Neg); OCCULT BLOOD,URINE NEGATIVE (Neg); PROTEIN,URINE TRACE mg/dl (Neg); UROBILINOGEN,URINE 0.2 E.U/dL (0.2-1.0)
[2024-06-05 15:26] LABS: BASOPHILS # (AUTO) 0.1 X10'3 (0-0.2); BASOPHILS % (AUTO) 0.7 % (0-1); EOSINOPHILS # (AUTO) 0.4 X10'3 (0-0.9); HEMOGLOBIN 12.2 g/dl (12.0-16.0); LYMPHOCYTES # (AUTO) 4.7 X10'3 (1.1-4.8); LYMPHOCYTES % (AUTO) 35.8 % (21-51); MEAN CORPUSCULAR HEMOGLOBIN 29.5 PG (27.0-31.0); MEAN CORPUSCULAR HGB CONC 32.1 g/dL (33.0-36.5); MEAN PLATELET VOLUME 9.3 FL (7.4-10.4); MONOCYTES # (AUTO) 1.3 X10'3 (0-0.9); MONOCYTES % (AUTO) 9.4 % (2-12); NEUTROPHILS # (AUTO) 6.8 X10'3 (1.8-7.7); NEUTROPHILS % (AUTO) 51.1 % (42-75); PLATELET COUNT 364 X10'3 (140-440); RED BLOOD COUNT 4.13 X10'6 (4.20-5.60); RED CELL DISTRIBUTION WIDTH 14.2 % (11.5-14.5); WHITE BLOOD COUNT 13.3 X10'3 (4.5-11.0)
[2024-06-05 15:30] LABS: UA COLLECTION TYPE CLN CATCH MIDSTREAM
[2024-06-05 15:31] LABS: BACTERIA,URINE 4+ /HPF (Neg); RBC,URINE 0-2 /HPF (0-2); SQUAMOUS EPITHELIAL CELL,UR MANY /LPF (FEW)
[2024-06-05 15:50] LABS: ALANINE AMINOTRANSFERASE 19 U/L (12-78); ALBUMIN 3.2 G/DL (3.4-5.0); ALBUMIN/GLOBULIN RATIO 0.8 (1.1-1.5); ALKALINE PHOSPHATASE 72 IU/L (46-116); ANION GAP 10 (8-16); ASPARTATE AMINO TRANSFERASE 12 U/L (10-37); BILIRUBIN,TOTAL 0.4 MG/DL (0.1-1.0); BLOOD UREA NITROGEN 25 MG/DL (7-18); BUN/CREATININE RATIO 12.6 (10.0-20.0); CALCIUM 8.9 MG/DL (8.5-10.1); CHLORIDE 105 MMOL/L (99-107); CREATININE 1.99 MG/DL (0.40-0.90); GLUCOSE 116 MG/DL (70-104); LIPASE 27 U/L (16-77); POTASSIUM 3.7 MMOL/L (3.5-5.1); SODIUM 140 MMOL/L (135-145); TOTAL CARBON DIOXIDE 25.5 MMOL/L (24-32); TOTAL PROTEIN 7.1 G/DL (6.4-8.2); eCRCL 24 ML/MIN; eGFR 25 ML/MIN
[2024-06-05] MEDS: HYDROmorphone 1 mg/ml syringe IV ONE (16:07)
[2024-06-05] MEDS: ondansetron/PF 4mg/2ml inj IV ONE (16:07)
[2024-06-05] MEDS: LORazepam 2 mg/ml vial IV ONE (18:46)
[2024-06-05] MEDS: ketorolac trometh 15mg/ml vial 15 MG/ML ML IV ONE (18:46)
[2024-06-05] MEDS: HYDROmorphone inj. 0.5 MG/0.5 ML DISP.SYRIN IV ONE (20:24)
[2024-06-05] MEDS ORDERED: magnesium sulf-water 2g/50mL 50 ML IV PRN (21:00)
[2024-06-05] MEDS ORDERED: acetaminophen 325mg tablet PO PRN (21:00)
[2024-06-05] MEDS ORDERED: potassium Cl 40MEQ/1/2NS 520ml 520 ML IV PRN (21:00)
[2024-06-05] MEDS ORDERED: mag hydrox/Alum hydrox/simeth 30ml oral suspension PO PRN (21:00)
[2024-06-05] MEDS ORDERED: magnesium sulf-water 4G/100mL 100 ML IV PRN (21:00)
[2024-06-05] MEDS ORDERED: potassium Cl 20 mEq SR tablet PO PRN ×2 (21:00)
[2024-06-05] MEDS ORDERED: magnesium Cl slow-release 64mg tablet PO PRN (21:00)
[2024-06-05] MEDS ORDERED: magnesium hydroxide 30ml (MOM) UD suspension PO PRN (21:00)
[2024-06-05] MEDS ORDERED: ONDA-243 PO (21:32)
[2024-06-05] MEDS: normal saline 1000ml 1,000 ML IV SCH (21:51)
[2024-06-05] MEDS: normal saline 500ml IV soln 500 ML IV ONE (21:58)
[2024-06-05 23:00] VITALS: RESP 14; O2SAT 98
[2024-06-05 23:19] VITALS: BP 143/63; PULSE 72; RESP 14; TEMP 97.8; O2SAT 97
[2024-06-05] MEDS: HYDROcodone/acetaminophen 5mg/325mg tablet PO PRN (23:55)
[2024-06-06] MEDS: HYDROmorphone inj. 0.5 MG/0.5 ML DISP.SYRIN IV PRN (01:06)
[2024-06-06] MEDS ORDERED: LORazepam 1 MG tablet PO PRN (03:35)
[2024-06-06 06:00] VITALS: BP 148/94; PULSE 72; RESP 18; TEMP 98; O2SAT 95
[2024-06-06 07:29] LABS: BASOPHILS # (AUTO) 0.1 X10'3 (0-0.2); BASOPHILS % (AUTO) 1.2 % (0-1); EOSINOPHILS # (AUTO) 0.4 X10'3 (0-0.9); EOSINOPHILS % (AUTO) 3.9 % (0-6); HEMATOCRIT 37.5 % (35.0-45.0); HEMOGLOBIN 12.3 g/dl (12.0-16.0); LYMPHOCYTES # (AUTO) 4.2 X10'3 (1.1-4.8); LYMPHOCYTES % (AUTO) 41.6 % (21-51); MEAN CORPUSCULAR HEMOGLOBIN 30.5 PG (27.0-31.0); MEAN CORPUSCULAR HGB CONC 32.7 g/dL (33.0-36.5); MEAN CORPUSCULAR VOLUME 93.2 FL (78-98); MEAN PLATELET VOLUME 9.6 FL (7.4-10.4); MONOCYTES # (AUTO) 1.1 X10'3 (0-0.9); MONOCYTES % (AUTO) 10.4 % (2-12); NEUTROPHILS # (AUTO) 4.4 X10'3 (1.8-7.7); NEUTROPHILS % (AUTO) 42.9 % (42-75); PLATELET COUNT 326 X10'3 (140-440); RED BLOOD COUNT 4.02 X10'6 (4.20-5.60); RED CELL DISTRIBUTION WIDTH 14.5 % (11.5-14.5); WHITE BLOOD COUNT 10.1 X10'3 (4.5-11.0)
[2024-06-06 07:48] LABS: ALANINE AMINOTRANSFERASE 14 U/L (12-78); ALBUMIN 2.8 G/DL (3.4-5.0); ALBUMIN/GLOBULIN RATIO 0.8 (1.1-1.5); ALKALINE PHOSPHATASE 67 IU/L (46-116); ANION GAP 10 (8-16); ASPARTATE AMINO TRANSFERASE 19 U/L (10-37); BILIRUBIN,TOTAL 0.3 MG/DL (0.1-1.0); BLOOD UREA NITROGEN 20 MG/DL (7-18); BUN/CREATININE RATIO 15.4 (10.0-20.0); CALCIUM 8.6 MG/DL (8.5-10.1); CHLORIDE 108 MMOL/L (99-107); GLUCOSE 104 MG/DL (70-104); MAGNESIUM 1.8 MG/DL (1.5-2.4); POTASSIUM 3.8 MMOL/L (3.5-5.1); SODIUM 141 MMOL/L (135-145); TOTAL CARBON DIOXIDE 22.6 MMOL/L (24-32); TOTAL PROTEIN 6.5 G/DL (6.4-8.2); eCRCL 37 ML/MIN; eGFR 42 ML/MIN
[2024-06-06 08:00] VITALS: RESP 18; O2SAT 95
[2024-06-06] MEDS: METHOCARBAMOL 750 MG PO SCH (08:00)
[2024-06-06] MEDS: K and/or MAG REPLACEMENT MC SCH (08:00)
[2024-06-06] MEDS: docusate sod 100mg capsule PO SCH (08:00)
[2024-06-06] MEDS: amLODIPine 5mg tablet PO SCH (08:43)
[2024-06-06] MEDS: predniSONE 20 mg tablet PO SCH (08:43)
[2024-06-06] MEDS: heparin, porcine 5000 units/ml vial SQ SCH (09:00)
[2024-06-06 10:00] VITALS: BP 163/95; PULSE 97; RESP 16; TEMP 98.5; O2SAT 97
[2024-06-06] MEDS ORDERED: heparin sodium, porcine/PF 100unit/ml 5ML syringe IV ONE (14:45)
[2024-06-06] MEDS: amLODIPine 5mg tablet PO ONE (15:58)
[2024-06-06] MEDS: pantoprazole 40mg Tablet.DR PO SCH (17:32)
[2024-06-06 18:00] VITALS: BP 110/61; PULSE 80; RESP 16; TEMP 97.6; O2SAT 100
[2024-06-06] MEDS: diphenhydrAMINE 25mg capsule PO SCH (20:13)
[2024-06-06 22:04] VITALS: BP 162/78; PULSE 83; RESP 16; TEMP 97.8; O2SAT 94
[2024-06-07 06:00] VITALS: BP 142/80; PULSE 67; RESP 16; TEMP 96.9; O2SAT 99
[2024-06-07 06:42] LABS: BASOPHILS # (AUTO) 0.1 X10'3 (0-0.2); BASOPHILS % (AUTO) 0.5 % (0-1); EOSINOPHILS # (AUTO) 0.1 X10'3 (0-0.9); EOSINOPHILS % (AUTO) 0.5 % (0-6); HEMATOCRIT 40.8 % (35.0-45.0); HEMOGLOBIN 13.4 g/dl (12.0-16.0); LYMPHOCYTES # (AUTO) 4.4 X10'3 (1.1-4.8); LYMPHOCYTES % (AUTO) 27.4 % (21-51); MEAN CORPUSCULAR HEMOGLOBIN 30.2 PG (27.0-31.0); MEAN CORPUSCULAR VOLUME 91.8 FL (78-98); MEAN PLATELET VOLUME 9.2 FL (7.4-10.4); MONOCYTES # (AUTO) 1.3 X10'3 (0-0.9); NEUTROPHILS # (AUTO) 10.3 X10'3 (1.8-7.7); NEUTROPHILS % (AUTO) 63.6 % (42-75); PLATELET COUNT 376 X10'3 (140-440); RED BLOOD COUNT 4.44 X10'6 (4.20-5.60); RED CELL DISTRIBUTION WIDTH 14.1 % (11.5-14.5); WHITE BLOOD COUNT 16.2 X10'3 (4.5-11.0)
[2024-06-07 07:01] LABS: ALANINE AMINOTRANSFERASE 19 U/L (12-78); ALBUMIN 3.2 G/DL (3.4-5.0); ALBUMIN/GLOBULIN RATIO 0.8 (1.1-1.5); ALKALINE PHOSPHATASE 76 IU/L (46-116); ANION GAP 8 (8-16); ASPARTATE AMINO TRANSFERASE 14 U/L (10-37); BILIRUBIN,TOTAL 0.2 MG/DL (0.1-1.0); BLOOD UREA NITROGEN 14 MG/DL (7-18); BUN/CREATININE RATIO 14.7 (10.0-20.0); CALCIUM 9.2 MG/DL (8.5-10.1); CHLORIDE 106 MMOL/L (99-107); CREATININE 0.95 MG/DL (0.40-0.90); GLUCOSE 103 MG/DL (70-104); MAGNESIUM 1.6 MG/DL (1.5-2.4); POTASSIUM 3.5 MMOL/L (3.5-5.1); SODIUM 142 MMOL/L (135-145); TOTAL CARBON DIOXIDE 28.5 MMOL/L (24-32); TOTAL PROTEIN 7.4 G/DL (6.4-8.2); eCRCL 51 ML/MIN; eGFR 60 ML/MIN
[2024-06-07 08:00] VITALS: RESP 16; O2SAT 99
[2024-06-07] MEDS: ondansetron/PF 4mg/2ml inj IV PRN (08:39)
[2024-06-07] MEDS: amLODIPine 5mg tablet PO SCH (09:34)
[2024-06-07 10:00] VITALS: BP 161/91; PULSE 70; RESP 16; TEMP 98; O2SAT 97
[2024-06-07] MEDS ORDERED: PRED10TA23 PO (10:54)
[2024-06-07 15:02] VITALS: RESP 16
[2024-06-07] MEDS: heparin sodium, porcine/PF 100unit/ml 5ML syringe IV ONE (15:21)
== END 2024-06-07 16:00 | disposition home or self-care (01) | DRG 551 ==
LOC: ER 14:25 → OBSVTOIN 21:06 → ED HOLD 21:06 → ORTHO 4S 23:04
PROVIDERS: ADMIT Internal Medicine Critical Care Medicine; ATTEND Nurse Practitioner Family
DX: M48.061 Spinal stenosis, lumbar region without neurogenic claudication (principal); N17.0 Acute kidney failure with tubular necrosis; E86.0 Dehydration; E11.43 Type 2 diabetes mellitus with diabetic autonomic (poly)neuropathy; G89.29 Other chronic pain; I10 Essential (primary) hypertension; K31.84 Gastroparesis; Z79.899 Other long term (current) drug therapy; Z88.2 Allergy status to sulfonamides; Z88.8 Allergy status to other drugs, medicaments and biological substances; Z90.49 Acquired absence of other specified parts of digestive tract; Z82.49 Family history of ischemic heart disease and other diseases of the circulatory system; Z90.710 Acquired absence of both cervix and uterus
CPT/HCPCS: 36415; 72146; 72148; 80053; 81001; 81025; 83690; 83735; 84132; 85025; 87081; 96374; 96375; 99285; G0378; J1170; J1642; J1644; J1885; J2060; J2405; J7030; J7040; J7512; Q0163

== ENCOUNTER 2025-03-27 22:49 | Observation (INO) | payer MEDICARE, MEDICAID ==
[~2025-03-27] VITALS: Ht 160 cm; Wt 102.0 kg
[~2025-03-27 22:49] MED LIST changes: -ASPI-1264 PO; +BUPR2TAB11 SL; -DICY20TA17 PO; -ENOX40DI11 SQ; -HYDR-3972 PO; -LEVO-65 PO; -LISI20TA28 PO; -METH-798 PO; -METR-159 PO; +ONDA-243 PO; -PRED20TA PO
--- NOTE | 2025-03-27 23:51 | Physician Documentation ---
History of Present Illness ~ Chief Complaint: Wound Re-Check Stated Complaint: WOUND RECHECK Time Seen by MD: 23:50 Primary Medical Doctor: Dr Florence, [facility] HPI Patient presents to the emergency room for evaluation of chronic pain and nausea and infected Port-A-Cath site. She was admitted here recently and had her infected Port-A-Cath removed and sent to rehab facility for wound care and antibiotics. At the facility unfortunately the patient reports that they can not give IV medications. They were not giving her her reported IV antibiotics when wound care therefore she left and came here. Tetanus within 5 years?: No Medication Reconciliation Allergies: Coded Allergies: Sulfa (Sulfonamide Antibiotics) (Verified Allergy, Unknown, 03/27/25) haloperidol (Verified Adverse Reaction, Severe, headache and twitching, 03/27/25) Scheduled Amlodipine Besylate (Amlodipine Besylate), 5 MG PO DAILY, (Reported) Buprenorphine Hcl (Buprenorphine Hcl), 1 TAB SL BID, (Reported) Heparin Sodium,Porcine/Pf (Heparin 500 Unit/5 ml (100/ml)), 1 SYR IV UD, (Reported) ONDANSETRON ODT 4mg tablet (Ondansetron Odt), 4 MG PO DAILY, (Reported) Omeprazole (Omeprazole), 1 CAP PO BID, (Reported) Scheduled PRN Diphenhydramine Hcl (Benadryl), 50 MG PO Q6H PRN for allergies, (Reported) Hydromorphone Hcl (Hydromorphone Hcl), 1 TAB PO QID PRN for severe pain, (Reported) Lorazepam (Ativan), 1 TAB PO BID PRN for anxiety, (Reported) Past Medical History Past Medical History: Hypertension, *GI/HEPATOBILIARY*, Chronic Pain, Deep Vein Thrombosis Past Surgical History: cholecystectomy Patient History: Diabetic gastroparesis (Gastroparesis likely nondiabetic) MOTHER, , Age: 80, Cause: Heart failure Paternal grandfather Alcohol Use: None Drug Use: marijuana Lives with: Spouse Lives In: Home Occupation: disabled Review of Systems ROS All review of systems negative except as per HPI Physical Exam Vital Signs: Temperature: 97.0, Source: Temporal, Heart Rate: 83, Respiratory Rate: 18, BP: 157/83, Pulse Oximetry: 97, Weight: 102.000 Oxygen Flow Rate: 0 Physical Exam General: Patient is awake, alert, oriented x4 in no acute distress Head: Normocephalic and atraumatic. Eyes: Conjunctival normal. EOMI. PERRL. ENT: Mucous membranes moist. Neck: Supple, trachea is midline. Chest: Clear to auscultation bilaterally without rales, rhonchi, or wheezes. There is no accessory muscle use or retractions. Shingles outbreak in right mid back Cardiac: RRR without murmurs, gallops, or rubs. Progress Results/Orders Results/Orders Orders - LAST RIVERA MD Page Hospitalist (03/28/25 00:00) Fill Out Med Reconciliation (03/28/25 00:00) Completed Orders - LAST RIVERA MD Cbc/Diff (03/28/25 00:00) BMP (03/28/25 00:00) Doxycycline 100mg/Ns 100ml Pb (Vibramyci (03/28/25 00:00) Hydromorphone 0.5 Mg/0.5 Ml/Pf (Dilaudid (03/28/25 00:00) Doxycycline 100mg/Ns 100ml Pb (Vibramyci (03/28/25 01:05) Laboratory Tests Test 03/28/25 00:30 White Blood Count 11.7 H Red Blood Count 3.98 L Hemoglobin 11.9 L Hematocrit 35.7 Mean Corpuscular Volume 89.6 Mean Corpuscular Hemoglobin 29.8 Mean Corpuscular Hemoglobin Concent 33.2 Red Cell Distribution Width 14.4 Platelet Count 334 Mean Platelet Volume 9.2 Neutrophils (%) (Auto) 48.0 Lymphocytes (%) (Auto) 34.9 Monocytes (%) (Auto) 11.2 Eosinophils (%) (Auto) 5.0 Basophils (%) (Auto) 0.9 Neutrophils # (Auto) 5.6 Lymphocytes # (Auto) 4.1 Monocytes # (Auto) 1.3 H Eosinophils # (Auto) 0.6 Basophils # (Auto) 0.1 CBC Comment Sodium Level 140 Potassium Level 3.4 L Chloride Level 104 Carbon Dioxide Level 27.0 Anion Gap 9 Blood Urea Nitrogen 24 H Creatinine 1.07 H Estimated GFR/1.73 m2 52 BUN/Creatinine Ratio 22.4 H Glucose Level 93 Calcium Level 8.9 Albumin 3.3 L Chemistry Comments Medical Decision Making Findings Patient requires IV medicines in her facility that has not do IV medicines. We will admit to figure out what placement is necessary. Departure Admitted to Inpatient Unit: yes, to hospitalist Impression: Primary Impression: Wound Condition: Guarded Referrals: NO PRIMARY CARE PROVIDER (PCP) Signature Scribe Signature: No scribe Attestation: The note accurately reflects work and decisions made by me.Last Rivera MD 04/01/25 02:25 LAST RIVERA MD Mar 27, 2025 23:50
[2025-03-28] VITALS (7 sets, daily range): BP systolic 113–156; BP diastolic 68–87; PULSE 63–82; RESP 16–20; TEMP 97.4–98; O2SAT 96–98
[2025-03-28 00:51] LABS: MEAN PLATELET VOLUME 9.2 FL (7.4-10.4); RED CELL DISTRIBUTION WIDTH 14.4 % (11.5-14.5)
[2025-03-28 00:57] LABS: CREATININE 1.07 MG/DL (0.40-0.90); TOTAL CARBON DIOXIDE 27.0 MMOL/L (24-32); eCRCL 45 ML/MIN; eGFR 52 ML/MIN
[2025-03-28] MEDS: HYDROmorphone inj. 0.5 MG/0.5 ML DISP.SYRIN IV ONE (01:20)
[2025-03-28] MEDS: doxycycline 100mg/NS 100mL PB 100 ML IV ONE ×2 (01:27)
--- NOTE | 2025-03-28 04:06 | HISTORY AND PHYSICAL-Residence ---
History & Physical Providers to CC Resident Creating Document: CARY HARVEY RES ~ History of Present Illness Primary Medical Doctor: Dr Florence, [facility] Reason for Admit\\Complaint: wound care, placement issue History of Present Illness Attestation I agree with the residents assessment and plan as below: Plan: wound care consult restart abx follow cultures obtain records for previous abx courses CCT 55 min using HIPPA compliant A/V technology 64-year-old female with history of gastroparesis with Single lumen LIJ Groshong in place, s/p right IJ port removal presented to the ED after for concerns of nausea and issues with the rehab as they were unable to administer her medications via the catheter. Was admitted here last week, had the Port-A-Cath removed and discharged with antibiotics to [facility] for wound care. She has a left-sided Groshong in place, At the facility she states that " they said nothing could be done, and they could not administer her medications via the Groshong", she also states that she was not seen by a doctor there. As she was not getting her nausea medications she has been vomiting and her brought her into the ED. Single lumen LIJ Groshong in place, s/p right IJ port removal, site appears to be clean with no signs of infection, dressing is clean. No other concerns or complaints at this time. No fever, chills, nausea, vomiting, diarrhea or constipation. Discussed advanced care directives and she wishes to be full code. Allergies: Coded Allergies: Sulfa (Sulfonamide Antibiotics) (Verified Allergy, Unknown, 03/27/25) haloperidol (Verified Adverse Reaction, Severe, headache and twitching, 03/27/25) Home Medications Home Medications Active Reported Benadryl (Diphenhydramine Hcl) 25 Mg Capsule 50 Mg PO Q6H PRN Buprenorphine Hcl 2 Mg Tab.subl 1 Tab SL BID 30 Days Ondansetron Odt (Ondansetron HCl) 4 Mg Tab.rapdis 4 Mg PO DAILY Ativan (Lorazepam) 1 Mg Tablet 1 Tab PO BID PRN 30 Days Omeprazole 20 Mg Capsule. 1 Cap PO BID Hydromorphone Hcl 2 Mg Tablet 1 Tab PO QID PRN Amlodipine Besylate 5 Mg Tablet 5 Mg PO DAILY Past Medical History Past Medical History Gastroparesis Hypertension Past Surgical History Surgical History Comment Cholecystectomy, 6 years ago Excisional biopsy of squamous cell carcinoma, 10 years ago 2 knee surgeries, 1998 and 1999 Hysterectomy, 1995 Tonsillectomy, 36 years ago Family History Family History: Diabetic gastroparesis (Gastroparesis likely nondiabetic) MOTHER, , Age: 80, Cause: Heart failure Paternal grandfather Past Social History Social History Comment Denies history of smoking Denies history of alcohol use Smoking: Non-Smoker Alcohol Use: None Drug Use: Marijuana Lives with: Spouse Lives In: Home Occupation: disabled ROS ROS Reviewed in full. All negative except for pertinent positive HPI. Exam Vitals: Vital Signs Date Time Temp Pulse Resp B/P (MAP) Pulse Ox O2 Delivery O2 Flow Rate FiO2 03/28/25 01:20 15 03/28/25 01:10 69 123/77 (92) 95 0 03/27/25 22:57 97.0 General: General: Awake and Alert, no acute distress. HEENT: Conjunctiva pink, Sclera clear, Mucus Membranes moist. Neck: Supple without masses and tenderness. Chest: Single lumen LIJ Groshong in place, right IJ port removed site looks clean no discharge or erythema. Dressing intact and clean. Resp: Unlabored. Equal breath sounds bilaterally. Heart: Regular rhythm, normal S1 and S2, no rub, murmur or gallop. Abdomen: Soft and non tender no organomegaly. Normal bowel sounds x4 quadrant normoactive. No guarding or rigidity. Extremities: Normal ROM, no swelling, nontender. No cyanosis,clubbing or edema. 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 Skin: Warm and Dry. Diagnostic Data Last Recorded Lab Results: 03/28/25 0030 03/28/25 0030 Advance Care Planning Advanced Care plannin - 30 Minutes Additional Plan 64-year-old female with history of gastroparesis with Single lumen LIJ Groshong in place, s/p right IJ port removal presented to the ED after for concerns of nausea and issues with the rehab as they were unable to administer her medications via the catheter. Single lumen LIJ Groshong in place, right IJ port removed site looks clean no discharge or erythema. Vitals normal Labs wnl, mild hypokalemia - replace per protocol Empiric antibiotics, IV doxycycline Wound care consulted, appreciate recommendations Will need CM to help with placement Awaiting med rec Code Status: Full code DVT prophylaxis: Heparin Analgesia/sedation: [place] Line/tube: PIV GI prophylaxis: Ppi Nutrition: Heart healthy Prognosis: Guarded Disposition: Continue medical management. Cary Harvey MD. IM Resident PGY-3 Date of Service: Mar 28, 2025 Billing Provider: ASHA LEON MD, ELIZABETH, RES Mar 28, 2025 04:06 ASHA LEON MD Mar 28, 2025 05:38
[2025-03-28] MEDS ORDERED: potassium Cl 20 mEq SR tablet PO PRN (04:25)
[2025-03-28] MEDS ORDERED: potassium Cl 40MEQ/1/2NS 520ml 520 ML IV PRN (04:25)
[2025-03-28] MEDS ORDERED: magnesium sulf-water 4G/100mL 100 ML IV PRN (04:25)
[2025-03-28] MEDS ORDERED: magnesium Cl slow-release 64mg tablet PO PRN (04:25)
[2025-03-28] MEDS ORDERED: mag hydrox/Alum hydrox/simeth 30ml oral suspension PO PRN (04:25)
[2025-03-28] MEDS ORDERED: magnesium sulf-water 2g/50mL 50 ML IV PRN (04:25)
[2025-03-28] MEDS ORDERED: HEPA100D46 IV (04:33)
[2025-03-28] MEDS: potassium Cl 20 mEq SR tablet PO PRN (05:05)
[2025-03-28] MEDS: K and/or MAG REPLACEMENT MC SCH (08:00)
[2025-03-28] MEDS: pantoprazole 40mg Tablet.DR PO SCH (09:54)
[2025-03-28] MEDS: heparin, porcine 5000 units/ml vial SQ SCH (09:56)
[2025-03-28] MEDS: doxycycline 100mg/NS 100mL PB 100 ML IV SCH (11:38)
[2025-03-28] MEDS: HYDROmorphone inj. 0.5 MG/0.5 ML DISP.SYRIN IV PRN (11:39)
[2025-03-28] MEDS: ondansetron/PF 4mg/2ml inj IV PRN (11:47)
--- NOTE | 2025-03-28 13:41 | PROGRESS NOTE- Residence ---
Progress Note - Resident Providers to CC Resident Creating Document: MOLINA JIMENEZ RES ~ Antibiotic Timeout Antibiotic Ordered?: Yes Subjective She was discharged on March 25 to [facility] following removal of a right IJ Uphold due to infection concerns, a Groshong catheter was placed. She returned to the hospital stating she has gastroparesis in NS unable to take oral medications, which she claims is the reason for needing the Groshong. At [facility], she received IV antibiotics by was not provided with her IV medications (Zofran), prompting her to leave [facility] and presented to the hospital seeking placement, citing inability to manage her wound care. This is primarily a social admission. Case management is involved. Consulted Dr. Carroll, who confirmed antibiotics and no longer indicated. Case management is working on SNF placement for wound and IV medication care or arranging home health services. Objective Vital Signs Date Time Temp Pulse Resp B/P (MAP) Pulse Ox O2 Delivery O2 Flow Rate FiO2 03/28/25 11:39 20 03/28/25 09:55 60 03/28/25 04:00 98 Room Air 03/28/25 03:30 98.0 148/84 (105) 03/28/25 01:10 0 General: Awake and Alert, no acute distress. HEENT: Conjunctiva pink, Sclera clear, Mucus Membranes moist. Neck: Supple without masses and tenderness. Chest: Single lumen LIJ Groshong in place, right IJ port removed site looks clean no discharge or erythema. Dressing intact and clean. Resp: Unlabored. Equal breath sounds bilaterally. Heart: Regular rhythm, normal S1 and S2, no rub, murmur or gallop. Abdomen: Soft and non tender no organomegaly. Normal bowel sounds x4 quadrant normoactive. No guarding or rigidity. Extremities: Normal ROM, no swelling, nontender. No cyanosis,clubbing or edema. 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 Skin: Warm and Dry. Result Diagram: 03/28/25 0030 03/28/25 0644 Advance Care Planning Advanced Care plannin - 30 Minutes Assessment Assessment 64-year-old female with history of gastroparesis with Single lumen LIJ Groshong in place, s/p right IJ port removal presented to the ED after for concerns of nausea and issues with the rehab as they were unable to administer her medications via the catheter. Plan Plan Single lumen LIJ Groshong in place Previously admitted for right IJ port infection concern, port removed and Groshong catheter placed No signs of ongoing infection; Dr. Carroll confirmed antibiotics are no longer indicated Monitor for signs of infection i.e. fever, erythema, drainage Gastroparesis Continue home medications Social/disposition Primary reason for current presentation is inability to manage wound care and IV medications at home Patient left [facility] AMA due to perceived inadequate care Case management involved; working onr home health with wound care and IV medications support Molina Jimenez Internal Medicine Resident Labs wnl, mild hypokalemia - replace per protocol Empiric antibiotics, IV doxycycline Wound care consulted, appreciate recommendations Will need CM to help with placement Date of Service: Mar 28, 2025 Billing Provider: JOSE GUTHRIE MD,MOLINA, RES Mar 28, 2025 13:41
--- NOTE | 2025-03-28 17:01 | DISCHARGE SUMMARY-Residence ---
Discharge Summary Providers to Resident Creating Document: MOLINA LOBOPIPPA ~ Discharge Summary Admission Diagnosis: WOUND CARE, PLACEMENT ISSUE Hospital Course DATE OF ADMISSION: February 26, 2025 DATE OF DISCHARGE: February 26, 2025 Discharge Diagnosis\Comment: Single lumen LIJ Groshong Previously admitted for right IJ port infection concern, port removed and Groshong catheter placed No signs of ongoing infection Gastroparesis, chronic Social/disposition: Primary reason for current presentation is inability to manage wound care and IV medications at home. Patient left [facility] AMA due to perceived inadequate care Operations\Procedures: None Consultants: None Complications: None Condition on DC: Stable Continued Medications: Amlodipine Besylate (Amlodipine Besylate) 5 Mg Tablet 5 MG PO DAILY Buprenorphine Hcl (Buprenorphine Hcl) 2 Mg Tab.subl 1 TAB SL BID for 30 Days, #60 TAB Diphenhydramine Hcl (Benadryl) 25 Mg Capsule 50 MG PO Q6H PRN for allergies, CAP Heparin Sodium,Porcine/Pf (Heparin 500 Unit/5 ml (100/ml)) 500 Unit/5 Ml (100 Unit/Ml) Syringe 1 SYR IV UD for 15 Days, #75 ML 0 Refills Hydromorphone Hcl (Hydromorphone Hcl) 2 Mg Tablet 1 TAB PO QID PRN for severe pain Lorazepam (Ativan) 1 Mg Tablet 1 TAB PO BID PRN for anxiety for 30 Days, #90 TAB Omeprazole (Omeprazole) 20 Mg Capsule.dr Tobin CAP PO BID ONDANSETRON ODT 4mg tablet (Ondansetron Odt) 4 Mg Tab.rapdis 4 MG PO DAILY, TAB Discharge Summary: Patient was discharged on March 25, 2025 to [facility] following removal of a right IJ port due to infection concerns, a Groshong catheter was placed. She returned to the hospital stating she has gastroparesis and unable to take oral medications, which she claims is the reason for needing the Groshong. At [facility], she received IV antibiotics by was not provided with her IV medications (Zofran), prompting her to leave [place] and presented to the hospital seeking placement, citing inability to manage her wound care. This was primarily a social admission. She stated that her house lacks electricity. Consulted Dr. Carroll, who confirmed antibiotics are no longer indicated. pick pack worker evaluated the patient, and concluded that since the patient has a place to go (her friend's house), the institution will not cover her staying in a motel. Weekly Groshong check by med GAMINSIDE already in place. She was discharged home. Vital Signs Date Time Temp Pulse Resp B/P (MAP) Pulse Ox O2 Delivery O2 Flow Rate FiO2 03/28/25 15:13 20 03/28/25 10:00 97.4 65 152/87 (108) 96 03/28/25 07:00 Room Air 0.0 General: Awake and Alert, no acute distress. HEENT: Conjunctiva pink, Sclera clear, Mucus Membranes moist. Neck: Supple without masses and tenderness. Chest: Single lumen LIJ Groshong in place, right IJ port removed site looks clean no discharge or erythema. Dressing intact and clean. Resp: Unlabored. Equal breath sounds bilaterally. Heart: Regular rhythm, normal S1 and S2, no rub, murmur or gallop. Abdomen: Soft and non tender no organomegaly. Normal bowel sounds x4 quadrant normoactive. No guarding or rigidity. Extremities: Normal ROM, no swelling, nontender. No cyanosis,clubbing or e jose. BIOLOGY INTERNSHIP: No gross motor or sensory abnormalities. Skin: Warm and Dry. *Problems/Diagnosis: (1) Gastroparesis Total Time Spent on D/C: Up to 30 Minutes Date of Service: Mar 28, 2025 Billing Provider: JOSE GUTHRIE MD Common Visit Codes: 69600-EMI/OBS DISCH DAY >30min MOLINA LOBO, RES Mar 28, 2025 16:57 JOSE GUTHRIE MD Mar 28, 2025 19:44
[2025-03-28] MEDS: JUVEN Smoothie Arginine/Glut./Ca2+Bmb (Juven 19.3pkt) 240ml cup PO SCH (17:30)
[2025-03-29 06:00] VITALS: BP 130/63; PULSE 84; RESP 16; TEMP 98.1; O2SAT 94
[2025-03-29 06:02] LABS: CREATININE 1.22 MG/DL (0.40-0.90); PHOSPHORUS 4.2 MG/DL (2.3-4.5); TOTAL CARBON DIOXIDE 27.7 MMOL/L (24-32); eCRCL 39 ML/MIN; eGFR 45 ML/MIN
[2025-03-29 06:16] LABS: MEAN PLATELET VOLUME 9.4 FL (7.4-10.4); RED CELL DISTRIBUTION WIDTH 14.5 % (11.5-14.5)
[2025-03-29 08:00] VITALS: RESP 16; O2SAT 94
[2025-03-29 11:00] VITALS: BP 145/79; PULSE 74; RESP 16; TEMP 97.8; O2SAT 97
--- NOTE | 2025-03-29 15:33 | PROGRESS NOTE- Residence ---
Progress Note - Resident Providers to CC Resident Creating Document: MOLINA JIMENEZ RES ~ Antibiotic Timeout Antibiotic Ordered?: No Subjective Patient was seen and examined at bedside. No overnight event or issues reported. The patient was medically cleared for discharge; however, she can tested the discharge decision initiated and a pill through Medicare. At this time, the discharge is pending the outcome of the appeal process. Objective Vital Signs Date Time Temp Pulse Resp B/P (MAP) Pulse Ox O2 Delivery O2 Flow Rate FiO2 03/29/25 14:52 16 03/29/25 11:00 97.8 74 145/79 (101) 97 Room Air 03/29/25 08:00 0.0 General: Awake and Alert, no acute distress. HEENT: Conjunctiva pink, Sclera clear, Mucus Membranes moist. Neck: Supple without masses and tenderness. Chest: Single lumen LIJ Groshong in place, right IJ port removed site looks clean no discharge or erythema. Dressing intact and clean. Resp: Unlabored. Equal breath sounds bilaterally. Heart: Regular rhythm, normal S1 and S2, no rub, murmur or gallop. Abdomen: Soft and non tender no organomegaly. Normal bowel sounds x4 quadrant normoactive. No guarding or rigidity. Extremities: Normal ROM, no swelling, nontender. No cyanosis,clubbing or edema. 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 Skin: Warm and Dry. Result Diagram: 03/29/2541403/29/25414 Advance Care Planning Advanced Care plannin - 30 Minutes Assessment Assessment 64-year-old female with history of gastroparesis with Single lumen LIJ Groshong in place, s/p right IJ port removal presented to the ED after for concerns of nausea and issues with the rehab as they were unable to administer her medications via the catheter. Plan Plan Single lumen LIJ Groshong in place Previously admitted for right IJ port infection concern, port removed and Groshong catheter placed No signs of ongoing infection; Dr. Carroll confirmed antibiotics are no longer indicated Monitor for signs of infection i.e. fever, erythema, drainage Gastroparesis Continue home medications Social/disposition Primary reason for current presentation is inability to manage wound care and IV medications at home Patient left [facility] due to perceived inadequate care Case management involved; working on home health with wound care and IV medications support March 28, 2025: She was discharged on March 25 to [facility] following removal of a right IJ Uphold due to infection concerns, a Groshong catheter was placed. She returned to the hospital stating she has gastroparesis in NS unable to take oral medications, which she claims is the reason for needing the Groshong. At [facility], she received IV antibiotics by was not provided with her IV medications (Zofran), prompting her to leave AMA and presented to the hospital seeking placement, citing inability to manage her wound care. This is primarily a social admission. Case management is involved. Consulted Dr. Carroll, who confirmed antibiotics and no longer indicated. Patient is being discharged home. March 29, 2025: The patient was medically cleared for discharge; however, she can tested the discharge decision initiated and a pill through Medicare. At this time, the discharge is pending the outcome of the appeal process. Molina Jimenez Internal Medicine Resident Date of Service: Mar 29, 2025 Billing Provider: JOSE GUTHRIE MD Common Visit Codes: [id number] INP/OBS CARE(MOD) MOLINA JIMENEZ, PIPPA Mar 29, 2025 15:33 JOSE GUTHRIE MD Mar 29, 2025 18:49
[2025-03-29 18:00] VITALS: BP 136/73; PULSE 69; RESP 15; TEMP 97.7; O2SAT 95
[2025-03-29 20:00] VITALS: RESP 15; O2SAT 95
[2025-03-29 22:00] VITALS: BP 142/87; PULSE 65; RESP 20; TEMP 97.7; O2SAT 96
[2025-03-30 05:57] LABS: MEAN PLATELET VOLUME 9.9 FL (7.4-10.4); RED CELL DISTRIBUTION WIDTH 14.4 % (11.5-14.5)
[2025-03-30 06:00] VITALS: BP 138/60; PULSE 63; RESP 16; TEMP 97.7; O2SAT 97
[2025-03-30 06:02] LABS: CREATININE 0.83 MG/DL (0.40-0.90); PHOSPHORUS 3.2 MG/DL (2.3-4.5); TOTAL CARBON DIOXIDE 29.9 MMOL/L (24-32); eCRCL 57 ML/MIN; eGFR 69 ML/MIN
[2025-03-30 10:00] VITALS: BP 151/83; PULSE 66; RESP 19; TEMP 97.5; O2SAT 98
--- NOTE | 2025-03-30 10:21 | PROGRESS NOTE- Residence ---
Progress Note - Resident Providers to CC Resident Creating Document: ARJUN ALVARADO RES ~ Antibiotic Timeout Antibiotic Ordered?: No Subjective Patient was seen and examined at bedside. The patient reported no specific muscle aches and epigastric pain. She received the Dilaudid 0.5 mg was states that it did not help with the pain, asking for more medication. The patient is medically cleared for discharge; however, she can test the discharge decision initiated and a pill through Medicare. At this time, the discharge is pending the outcome of the appeal process. Objective Vital Signs Date Time Temp Pulse Resp B/P (MAP) Pulse Ox O2 Delivery O2 Flow Rate FiO2 03/30/25 09:37 16 03/30/25 09:30 63 03/30/25 06:00 97.7 138/60 (86) 97 Room Air 03/29/25 20:00 0.0 Result Diagram: 03/30/2543403/30/25434 General: Awake and Alert, no acute distress. HEENT: Conjunctiva pink, Sclera clear, Mucus Membranes moist. Neck: Supple without masses and tenderness. Chest: Single lumen LIJ Groshong in place, right IJ port removed site looks clean no discharge or erythema. Dressing intact and clean. Resp: Unlabored. Equal breath sounds bilaterally. Heart: Regular rhythm, normal S1 and S2, no rub, murmur or gallop. Abdomen: Soft and non tender no organomegaly. Normal bowel sounds x4 quadrant normoactive. No guarding or rigidity. Extremities: Normal ROM, no swelling, nontender. No cyanosis,clubbing or edema. 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 Skin: Warm and Dry. Assessment Assessment 64-year-old female with history of gastroparesis with Single lumen LIJ Groshong in place, s/p right IJ port removal presented to the ED after for concerns of nausea and issues with the rehab as they were unable to administer her medications via the catheter. Plan Plan Single lumen LIJ Groshong in place Previously admitted for right IJ port infection concern, port removed and Groshong catheter placed No signs of ongoing infection; Dr. Carroll confirmed antibiotics are no longer indicated Monitor for signs of infection i.e. fever, erythema, drainage Gastroparesis Continue home medications Social/disposition Primary reason for current presentation is inability to manage wound care and IV medications at home Patient left [facility] due to perceived inadequate care [facility] March 28, 2025: She was discharged on March 25 to [facility] following removal of a right IJ Uphold due to infection concerns, a Groshong catheter was placed. She returned to the hospital stating she has gastroparesis in NS unable to take oral medications, which she claims is the reason for needing the Groshong. At [facility], she received IV antibiotics by was not provided with her IV medications (Zofran), prompting her to leave [place] and presented to the hospital seeking placement, citing inability to manage her wound care. This is primarily a social admission. Case management is involved. Consulted Dr. Carroll, who confirmed antibiotics and no longer indicated. Patient is being discharged home. March 29, 2025: The patient was medically cleared for discharge; however, she can tested the discharge decision initiated and a pill through Medicare. At this time, the discharge is pending the outcome of the appeal process. March 30, 2025 Ordered cyclobenzaprine 5 mg q.8h p.r.n. for muscle aches Pending Medicare appealing process Date of Service: Mar 30, 2025 Billing Provider: JOSE GUTHRIE MD Common Visit Codes: [id number] INP/OBS CARE(MOD) ARJUN ALVARADO, RES Mar 30, 2025 10:21 JOSE GUTHRIE MD Mar 30, 2025 20:34
[2025-03-30 15:09] VITALS: RESP 16
== END 2025-03-30 16:49 | disposition home health service (06) ==
LOC: ER 22:50 → INTOOBSV 03-28 02:02 → ED HOLD 03-28 02:02 → SUR 3N 03-28 03:20
PROVIDERS: ADMIT Internal Medicine; ATTEND Internal Medicine
DX: K31.84 Gastroparesis (principal); G89.29 Other chronic pain; I10 Essential (primary) hypertension; E11.43 Type 2 diabetes mellitus with diabetic autonomic (poly)neuropathy; R11.0 Nausea; Z79.899 Other long term (current) drug therapy; Z98.890 Other specified postprocedural states
CPT/HCPCS: 80048; 83735; 84100; 84132; 96365; 96366; 96372; 96375; 99284; A6212; G0378; J1171; 36415; 85025; 87081; 96376; 99285; A6266; A6449; J1200; J1271; J1644; J2405

== ENCOUNTER 2025-08-19 16:26 | Emergency (ER) | payer MEDICARE, MEDICAID ==
[~2025-08-19] VITALS: Ht 160 cm; Wt 97.5 kg
[~2025-08-19 16:26] MED LIST changes: +HEPA100D46 IV
[2025-08-19 16:28] VITALS: BP 159/93; PULSE 97; RESP 16; TEMP 97.7; O2SAT 97
--- NOTE | 2025-08-19 17:30 | Physician Documentation ---
History of Present Illness ~ General Chief Complaint: See Chief Complaint Stated Complaint: POST OP COMPLICATIONS Time Seen by MD: 16:50 Primary Medical Doctor: Dr Florence, [facility] Mode of Arrival: POV, Ambulatory History of Present Illness Initial Comments Patient is seen today with complaints of her central line having a crack or hole in it and being unable to administer medications. Patient states he had the central line placed here and now states that she is having issues with it starting today. She has no other concern or complaint at this time. Medication Reconciliation Allergies: Coded Allergies: Sulfa (Sulfonamide Antibiotics) (Verified Allergy, Unknown, 03/27/25) haloperidol (Verified Adverse Reaction, Severe, headache and twitching, 03/27/25) Scheduled Amlodipine Besylate (Amlodipine Besylate), 5 MG PO DAILY, (Reported) Buprenorphine Hcl (Buprenorphine Hcl), 1 TAB SL BID, (Reported) Heparin Sodium,Porcine/Pf (Heparin 500 Unit/5 ml (100/ml)), 1 SYR IV UD, (Reported) ONDANSETRON ODT 4mg tablet (Ondansetron Odt), 4 MG PO DAILY, (Reported) Omeprazole (Omeprazole), 1 CAP PO BID, (Reported) Scheduled PRN Diphenhydramine Hcl (Benadryl), 50 MG PO Q6H PRN for allergies, (Reported) Hydromorphone Hcl (Hydromorphone Hcl), 1 TAB PO QID PRN for severe pain, (Reported) Lorazepam (Ativan), 1 TAB PO BID PRN for anxiety, (Reported) Past Medical History Past Medical History: Hypertension, *GI/HEPATOBILIARY*, Chronic Pain, Deep Vein Thrombosis Past Surgical History: cholecystectomy Patient History: Diabetic gastroparesis (Gastroparesis likely nondiabetic) MOTHER, , Age: 80, Cause: Heart failure Paternal grandfather Alcohol Use: None Drug Use: marijuana Lives with: Spouse Lives In: Home Occupation: disabled Review of Systems Constitutional: Denies: chills, fever, weakness Eyes: Denies: pain, blurred vision ENT: Denies: ear pain, nose pain, throat pain, mouth pain Respiratory: Denies: cough, shortness of breath Cardiovascular: Denies: chest pain, palpitations Gastrointestinal: Denies: abdominal pain, nausea, vomiting Genitourinary: Denies: burning, dysuria Female Genitalia: Denies: vaginal discharge, pelvic pain Neurological: Denies: headache, dizziness Musculoskeletal: Denies: pain, swelling Integumentary: Denies: rash, lesions Allergic/Immunologic: Denies: hives, itching Hematologic/Lymphatic: Denies: no symptoms reported Psychiatric: Denies: depression, anxiety Physical Exam Physical Exam Vital Signs: Temperature: 97.7, Source: Oral, Heart Rate: 97, Respiratory Rate: 16, BP: 159/93, Pulse Oximetry: 97, Weight: 97.500 Oxygen Flow Rate: 0 Physical Exam General: Awake and Alert, no acute distress. HEENT: Conjunctiva pink, Sclera clear, Mucus Membranes moist. Neck: Supple without masses and tenderness. Resp: Unlabored. Lungs clear to auscultation bilaterally. Heart: Regular Rate and rhythm, normal S1 and S2 without murmur, rub or gallop. Abdomen: Soft and non tender no organomegaly Extremities: No cyanosis,clubbing or edema. Skin: Warm and Dry. Progress Results/Orders Results/Orders Vital Signs 08/19/25 16:28 Temp 97.7 Pulse 97 Resp 16 B/P (MAP) 159/93 Pulse Ox 97 O2 Flow Rate 0 Medical Decision Making Additional information obtaine: N/A Findings Patient is seen today with complaints of her central line having a crack or hole in it and being unable to administer medications. Patient states he had the central line placed here and now states that she is having issues with it starting today. She has no other concern or complaint at this time. Patient elected to elope and take herself to [facility] where there is an interventional radiologist on staff and available tonight. Patient will return to ED with any worsening, concerning or changing symptoms. Differential Diagnosis central line malfunction Departure Disposition: LEFT AWOL/ELOPED Impression: Primary Impression: General medical exam Condition: Stable Additional Instructions: Patient elected to elope and take herself to [facility] where there is an interventional radiologist on staff and available tonight. Patient will return to ED with any worsening, concerning or changing symptoms. Referrals: NO PRIMARY CARE PROVIDER (PCP) Signature Scribe Signature: No scribe Attestation: No scribe TESSA GONZALEZ PAC Aug 19, 2025 17:30
== END 2025-08-19 17:17 | disposition left against medical advice (07) ==
LOC: ER 16:26
DX: Z00.00 Encounter for general adult medical examination without abnormal findings (principal); E11.43 Type 2 diabetes mellitus with diabetic autonomic (poly)neuropathy; F12.90 Cannabis use, unspecified, uncomplicated; G89.29 Other chronic pain; I10 Essential (primary) hypertension; Z90.49 Acquired absence of other specified parts of digestive tract; Z88.8 Allergy status to other drugs, medicaments and biological substances; Z88.2 Allergy status to sulfonamides; Z79.899 Other long term (current) drug therapy; Z86.718 Personal history of other venous thrombosis and embolism
CPT/HCPCS: 99282